=== PATIENT | male | born 1945 | race Caucasian/White ===

== ENCOUNTER 2024-01-19 12:56 | Emergency (ER) | payer MEDICARE ==
--- NOTE | 2024-01-19 13:13 | ED ---
General Adult HPI - General Chief complaint: Weakness Stated complaint: Weakness Time Seen by Provider: 01/19/24 13:00 Source: patient, EMS, RN notes reviewed, old records reviewed Mode of arrival: EMS Limitations: no limitations - History of Present Illness Initial comments: This is an 78-year-old male who presents to the emergency department complaining that he was too weak to get up and get into the shower. According to the report by EMS patient was weak and the report was that he was a little altered however he is alert and oriented x 3 currently. Patient states he has had 5 stents but has been about 15 years since he had a stent. Patient denies any chest pain difficulty breathing shortness of breath. Patient has any fever chills or cough or patient has abdominal pain patient has nausea vomiting diarrhea. Patient denies any recent trauma or injury. Patient states currently has no complaints but he is states he might be weak but he cannot tell close is not trying to stand - Related Data Home Medications Medication Instructions Recorded Confirmed Aspirin 325 mg PO DAILY 01/19/24 01/19/24 Chlorhexidine Gluconate [Peridex] 15 ml PO BID 01/19/24 01/19/24 Cyanocobalamin [Vitamin B-12 1,000 mcg SQ QMONTHLY 01/19/24 01/19/24 Injection] Divalproex ER [Depakote ER] 250 mg PO DAILY 01/19/24 01/19/24 Simvastatin 40 mg PO HS 01/19/24 01/19/24 amLODIPine [Norvasc] 5 mg PO BID 01/19/24 01/19/24 busPIRone HCL 15 mg PO BID 01/19/24 01/19/24 Allergies Allergy/AdvReac Type Severity Reaction Status Date / Time No Known Allergies Allergy Verified 01/19/24 17:02 Review of Systems ROS Statement: Those systems with pertinent positive or pertinent negative responses have been documented in the HPI. ROS Other: All systems not noted in ROS Statement are negative. Past Medical History Past Medical History: Dementia, Hyperlipidemia, Hypertension History of Any Multi-Drug Resistant Organisms: None Reported Past Surgical History: No Surgical Hx Reported Past Psychological History: No Psychological Hx Reported Smoking Status: Former smoker Past Alcohol Use History: None Reported Past Drug Use History: None Reported General Exam - General Exam Comments Initial Comments: GENERAL: Patient is well-developed and well-nourished. Patient is nontoxic and well- hydrated and is in no acute distress. ENT: Neck is soft and supple. No significant lymphadenopathy is noted. Oropharynx is clear. Moist mucous membranes. Neck has full range of motion without eliciting any pain. EYES: The sclera were anicteric and conjunctiva were pink and moist. Extraocular movements were intact and pupils were equal round and reactive to light. Eyelids were unremarkable. PULMONARY: Unlabored respirations. Good breath sounds bilaterally. No audible rales rhonchi or wheezing was noted. CARDIOVASCULAR: There is a regular rate and rhythm without any murmurs gallops or rubs. ABDOMEN: Soft and nontender with normal bowel sounds. SKIN: Skin is clear with no lesions or rashes and otherwise unremarkable. NEUROLOGIC: Patient is alert and oriented x3. Cranial nerves II through XII are grossly intact. Motor and sensory are also intact. Normal speech, volume and content. Symmetrical smile. MUSCULOSKELETAL: Normal extremities with adequate strength and full range of motion. LYMPHATICS: No significant lymphadenopathy is noted PSYCHIATRIC: Normal psychiatric evaluation. Limitations: no limitations Course Vital Signs 01/19/24 01/19/24 12:58 14:40 Temperature 96.8 F L 97.2 F L Pulse Rate 65 61 Respiratory 16 16 Rate Blood Pressure 108/58 133/77 O2 Sat by Pulse 95 Oximetry Medical Decision Making - Medical Decision Making EKG is interpreted by myself read EKG shows sinus rhythm at 60 bpm [place] interval is 182 QRS is 97 QT interval is 421 QTc is 421. Patient's EKG shows no ST segment ovation or depression. Was pt. sent in by a medical professional or institution (, PA, PROGRAM FACILITATOR, urgent care, hospital, or fdc...) When possible be specific @ -No Did you speak to anyone other than the patient for history (EMS, parent, family, police, friend...)? What history was obtained from this source @ -EMS gave us all of the history Did you review nursing and triage notes (agree or disagree)? Why? @ -I reviewed and agree with nursing and triage notes Were old charts reviewed (outside hosp., previous admission, EMS record, old EKG, old radiological studies, urgent care reports/EKG's, fdc records)? Report findings @ -No old charts were reviewed Differential Diagnosis (chest pain, altered mental status, abdominal pain women, abdominal pain men, vaginal bleeding, weakness, fever, dyspnea, syncope, headache, dizziness, GI bleed, back pain, seizure, CVA, palpatations, mental health, musculoskeletal)? @ -Differential Weakness: Hypoglycemia, shock, sepsis, hyponatremia, anemia, infection, [place], ETOH, adverse medicine reaction, overdose, stroke, this is not meant to be an all-inclusive list. EKG interpreted by me (3pts min.). @ -As above X-rays interpreted by me (1pt min.). @ -None done CT interpreted by me (1pt min.). @ -None done U/S interpreted by me (1pt. min.). @ -None done What testing was considered but not performed or refused? (CT, X-rays, U/S, labs)? Why? @ -None What meds were considered but not given or refused? Why? @ -None Did you discuss the management of the patient with other professionals (professionals i.e. , PA, PROGRAM FACILITATOR, lab, RT, psych nurse, social media executive, aquatic physiotherapist, teacher, fire control officer, transplant case manager)? Give summary @ -No Was smoking cessation discussed for >3mins.? @ -No Was critical care preformed (if so, how long)? @ -No Were there social determinants of health that impacted care today? How? (Homelessness, low income, unemployed, alcoholism, drug addiction, transportation, low edu. Level, literacy, decrease access to med. care, correction, rehab)? @ -No Was there de-escalation of care discussed even if they declined (Discuss DNR or withdrawal of care, Hospice)? DNR status @ -No What co-morbidities impacted this encounter? (DM, HTN, Smoking, COPD, CAD, Cancer, CVA, ARF, Chemo, Hep., AIDS, mental health diagnosis, sleep apnea, morbid obesity)? @ -None Was patient admitted / discharged? Hospital course, mention meds given and route, prescriptions, significant lab abnormalities, going to OR and other pertinent info. @ -Patient's lab work came back within normal range. Patient had no complaints after his lab work came back. I got the patient up and ambulated him on 3 different occasions and his pulse ox stayed above 95% and he had no complaints after ambulating. Patient was stable with a walker Undiagnosed new problem with uncertain prognosis? @ -No Drug Therapy requiring intensive monitoring for toxicity (Heparin, Nitro, Insulin, Cardizem)? @ -No Were any procedures done? @ -No Diagnosis/symptom? @ -Weakness Acute, or Chronic, or Acute on Chronic? @ -Acute Uncomplicated (without systemic symptoms) or Complicated (systemic symptoms)? @ -Complicated Side effects of treatment? @ -No Exacerbation, Progression, or Severe Exacerbation? @ -No Poses a threat to life or bodily function? How? (Chest pain, [place], [place], pneumonia, PE, COPD, DKA, ARF, appy, cholecystitis, CVA, Diverticulitis, Homicidal, Brina cidal, threat to staff... and all critical care pts) @ -No - Lab Data Result diagrams: 01/19/24 15:20 01/19/24 13:22 Lab Results 01/19/24 01/19/24 01/19/24 Range/Units 13:22 13:22 13:22 WBC (3.8-10.6) k/uL RBC (4.30-5.90) m/uL Hgb (13.0-17.5) gm/dL Hct (39.0-53.0) % MCV (80.0-100.0) fL MCH (25.0-35.0) pg MCHC (31.0-37.0) g/dL RDW (11.5-15.5) % Plt Count (150-450) k/uL MPV Neutrophils % % Lymphocytes % % Monocytes % % Eosinophils % % Basophils % % Neutrophils # (1.3-7.7) k/uL Lymphocytes # (1.0-4.8) k/uL Monocytes # (0-1.0) k/uL Eosinophils # (0-0.7) k/uL Basophils # (0-0.2) k/uL PT (10.0-12.5) sec INR (<1.2) APTT (22.0-30.0) sec Sodium 139 (137-145) mmol/L Potassium 4.4 (3.5-5.1) mmol/L Chloride 108 H (98-107) mmol/L Carbon Dioxide 23 (22-30) mmol/L Anion Gap 8 mmol/L BUN 23 H (9-20) mg/dL Creatinine 1.15 (0.66-1.25) mg/dL Est GFR (CKD-EPI)AfAm 70 (>60 ml/min/1.73 sqM) Est GFR (CKD-EPI)NonAf 60 (>60 ml/min/1.73 sqM) Glucose 159 H (74-99) mg/dL Lactic Ac Sepsis Rflx Plasma Lactic Acid Addy 2.2 H* (0.7-2.0) mmol/L Calcium 8.6 (8.4-10.2) mg/dL Magnesium 2.0 (1.6-2.3) mg/dL Total Bilirubin 0.7 (0.2-1.3) mg/dL AST 21 (17-59) U/L ALT 18 (4-49) U/L Alkaline Phosphatase 74 (38-126) U/L Troponin I (0.000-0.034) ng/mL Total Protein 6.4 (6.3-8.2) g/dL Albumin 3.6 (3.5-5.0) g/dL Urine Color Yellow Urine Appearance Clear (Clear) Urine pH 6.5 (5.0-8.0) Ur Specific [place] 1.017 (1.001-1.035) Urine Protein 1+ H (Negative) Urine Glucose (UA) Negative (Negative) Urine Ketones Negative (Negative) Urine Blood Negative (Negative) Urine Nitrite Negative (Negative) Urine Bilirubin Negative (Negative) Urine Urobilinogen <2.0 (<2.0) mg/dL Ur Leukocyte Esterase Negative (Negative) Urine RBC 1 (0-5) /hpf Urine WBC 1 (0-5) /hpf Urine Mucus Rare H (None) /hpf 01/19/24 01/19/24 01/19/24 Range/Units 13:22 13:57 15:20 WBC 7.0 (3.8-10.6) k/uL RBC 3.72 L (4.30-5.90) m/uL Hgb 11.7 L (13.0-17.5) gm/dL Hct 35.6 L (39.0-53.0) % MCV 95.9 (80.0-100.0) fL MCH 31.4 (25.0-35.0) pg MCHC 32.8 (31.0-37.0) g/dL RDW 11.8 (11.5-15.5) % Plt Count 196 (150-450) k/uL MPV 8.5 Neutrophils % 66 % Lymphocytes % 23 % Monocytes % 6 % Eosinophils % 2 % Basophils % 1 % Neutrophils # 4.6 (1.3-7.7) k/uL Lymphocytes # 1.6 (1.0-4.8) k/uL Monocytes # 0.4 (0-1.0) k/uL Eosinophils # 0.1 (0-0.7) k/uL Basophils # 0.0 (0-0.2) k/uL PT (10.0-12.5) sec INR (<1.2) APTT (22.0-30.0) sec Sodium (137-145) mmol/L Potassium (3.5-5.1) mmol/L Chloride (98-107) mmol/L Carbon Dioxide (22-30) mmol/L Anion Gap mmol/L BUN (9-20) mg/dL Creatinine (0.66-1.25) mg/dL Est GFR (CKD-EPI)AfAm (>60 ml/min/1.73 sqM) Est GFR (CKD-EPI)NonAf (>60 ml/min/1.73 sqM) Glucose (74-99) mg/dL Lactic Ac Sepsis Rflx Y Plasma Lactic Acid Addy (0.7-2.0) mmol/L Calcium (8.4-10.2) mg/dL Magnesium (1.6-2.3) mg/dL Total Bilirubin (0.2-1.3) mg/dL AST (17-59) U/L ALT (4-49) U/L Alkaline Phosphatase (38-126) U/L Troponin I <0.012 (0.000-0.034) ng/mL Total Protein (6.3-8.2) g/dL Albumin (3.5-5.0) g/dL Urine Color Urine Appearance (Clear) Urine pH (5.0-8.0) Ur Specific [place] (1.001-1.035) Urine Protein (Negative) Urine Glucose (UA) (Negative) Urine Ketones (Negative) Urine Blood (Negative) Urine Nitrite (Negative) Urine Bilirubin (Negative) Urine Urobilinogen (<2.0) mg/dL Ur Leukocyte Esterase (Negative) Urine RBC (0-5) /hpf Urine WBC (0-5) /hpf Urine Mucus (None) /hpf 01/19/24 01/19/24 Range/Units 15:20 16:27 WBC (3.8-10.6) k/uL RBC (4.30-5.90) m/uL Hgb (13.0-17.5) gm/dL Hct (39.0-53.0) % MCV (80.0-100.0) fL MCH (25.0-35.0) pg MCHC (31.0-37.0) g/dL RDW (11.5-15.5) % Plt Count (150-450) k/uL MPV Neutrophils % % Lymphocytes % % Monocytes % % Eosinophils % % Basophils % % Neutrophils # (1.3-7.7) k/uL Lymphocytes # (1.0-4.8) k/uL Monocytes # (0-1.0) k/uL Eosinophils # (0-0.7) k/uL Basophils # (0-0.2) k/uL PT 10.2 (10.0-12.5) sec INR 0.9 (<1.2) APTT 21.9 L (22.0-30.0) sec Sodium (137-145) mmol/L Potassium (3.5-5.1) mmol/L Chloride (98-107) mmol/L Carbon Dioxide (22-30) mmol/L Anion Gap mmol/L BUN (9-20) mg/dL Creatinine (0.66-1.25) mg/dL Est GFR (CKD-EPI)AfAm (>60 ml/min/1.73 sqM) Est GFR (CKD-EPI)NonAf (>60 ml/min/1.73 sqM) Glucose (74-99) mg/dL Lactic Ac Sepsis Rflx Plasma Lactic Acid Addy 1.3 (0.7-2.0) mmol/L Calcium (8.4-10.2) mg/dL Magnesium (1.6-2.3) mg/dL Total Bilirubin (0.2-1.3) mg/dL AST (17-59) U/L ALT (4-49) U/L Alkaline Phosphatase (38-126) U/L Troponin I (0.000-0.034) ng/mL Total Protein (6.3-8.2) g/dL Albumin (3.5-5.0) g/dL Urine Color Urine Appearance (Clear) Urine pH (5.0-8.0) Ur Specific [place] (1.001-1.035) Urine Protein (Negative) Urine Glucose (UA) (Negative) Urine Ketones (Negative) Urine Blood (Negative) Urine Nitrite (Negative) Urine Bilirubin (Negative) Urine Urobilinogen (<2.0) mg/dL Ur Leukocyte Esterase (Negative) Urine RBC (0-5) /hpf Urine WBC (0-5) /hpf Urine Mucus (None) /hpf Disposition Clinical Impression: Weakness Disposition: HOME SELF-CARE Condition: Good Instructions (If sedation given, give patient instructions): Weakness (ED) Is patient prescribed a controlled substance at d/c from ED?: No Referrals: None,Stated [REFERRING] - 1-2 days Time of Disposition: 18:36
[2024-01-19 13:43] LABS: ALT 18 U/L (4-49); AST 21 U/L (17-59); African American GFR (CKD) 70 (>60 ml/min/1.73 sqM); Albumin 3.6 g/dL (3.5-5.0); Alkaline Phosphatase 74 U/L (38-126); Anion Gap 8 mmol/L; Blood Urea Nitrogen 23 mg/dL (9-20); Calcium 8.6 mg/dL (8.4-10.2); Carbon Dioxide 23 mmol/L (22-30); Chloride 108 mmol/L (98-107); Glucose 159 mg/dL (74-99); Non-African American GFR(CKD) 60 (>60 ml/min/1.73 sqM); Potassium 4.4 mmol/L (3.5-5.1); Sodium 139 mmol/L (137-145); Total Bilirubin 0.7 mg/dL (0.2-1.3); Total Protein 6.4 g/dL (6.3-8.2)
--- NOTE | 2024-01-19 13:49 | XR ---
EXAMINATION TYPE: XR chest 2V DATE OF EXAM: 01/19/2024 COMPARISON: NONE HISTORY: Shortness of breath TECHNIQUE: Frontal and lateral views of the chest are obtained. FINDINGS: Scattered senescent parenchymal changes noted. Hyperinflation compatible with COPD. No evidence for infiltrate. No evidence for atelectasis. Heart size is stable. Mediastinal structures are stable and grossly unremarkable. No evidence for hilar prominence. Degenerative changes dorsal spine. IMPRESSION: 1. No evidence for acute pulmonary disease.
[2024-01-19 14:05] LABS: Appearance,Urine Clear (Clear); Bilirubin,Urine Negative (Negative); Blood,Urine Negative (Negative); Color,Urine Yellow; Glucose,Urine (UA) Negative (Negative); Ketones,Urine Negative (Negative); Leukocyte Esterase,Urine Negative (Negative); Mucus,Urine Rare /hpf; Nitrite,Urine Negative (Negative); PH, Urine 6.5 (5.0-8.0); Protein,Urine 1+ (Negative); RBC,Urine 1 /hpf (0-5); Specific Gravity,Urine 1.017 (1.001-1.035); Urobilinogen,Urine <2.0 mg/dL (<2.0); WBC,Urine 1 /hpf (0-5)
[2024-01-19 15:38] LABS: Basophils % (A) 1 %; Eosinophils # (A) 0.1 k/uL (0-0.7); Eosinophils % (A) 2 %; HCT 35.6 % (39.0-53.0); HGB 11.7 gm/dL (13.0-17.5); Lymphocytes # (A) 1.6 k/uL (1.0-4.8); Lymphocytes % (A) 23 %; MCH 31.4 pg (25.0-35.0); MCHC 32.8 g/dL (31.0-37.0); MCV 95.9 fL (80.0-100.0); Mean Platelet Volume 8.5; Monocytes # (A) 0.4 k/uL (0-1.0); Monocytes % (A) 6 %; Neutrophils # (A) 4.6 k/uL (1.3-7.7); Neutrophils % (A) 66 %; Platelet Count 196 k/uL (150-450); RBC 3.72 m/uL (4.30-5.90); RDW 11.8 % (11.5-15.5)
[2024-01-19 15:55] LABS: INR 0.9 (<1.2); Partial Thromboplastin Time 21.9 sec (22.0-30.0); Prothrombin Time 10.2 sec (10.0-12.5)
[2024-01-19 19:01] VITALS: TEMP 97.3
[2024-01-19 19:59] VITALS: BP 133/70; PULSE 71; RESP 16
== END 2024-01-19 20:13 | disposition home or self-care (01) ==
LOC: EC 12:56 → EEVIPCON 12:56 → EC 20:13
DX: R53.1 Weakness (principal); I10 Essential (primary) hypertension; E78.5 Hyperlipidemia, unspecified; Z87.891 Personal history of nicotine dependence; Z79.899 Other long term (current) drug therapy; Z79.82 Long term (current) use of aspirin
CPT/HCPCS: 36415; 71046; 80053; 81001; 83605; 83735; 84484; 85025; 85610; 85730; 93005; 99285

== ENCOUNTER 2024-04-13 13:31 | Inpatient (IN) | payer MEDICARE ==
[2024-04-13] MEDS: SODIUM CHLORIDE 0.9% 1,000 ML IV STA ×2 (14:10→15:52)
[2024-04-13] MEDS: KETOROLAC 15 MG/ML 1 ML VIAL IVP STA (14:12)
[2024-04-13] MEDS: ACETAMINOPHEN TAB 500 MG TAB PO STA (14:13)
--- NOTE | 2024-04-13 14:15 | ED ---
Weakness HPI - General Chief complaint: Weakness Stated complaint: Weakness Time Seen by Provider: 04/13/24 13:38 Source: patient, EMS, RN notes reviewed Mode of arrival: EMS Limitations: no limitations - History of Present Illness Initial comments: This is an 78-year-old male who presents to the emergency department for generalized weakness. Patient currently lives at [facility], and states that when he woke up this morning he was feeling very weak. Staff members noticed him to seem more altered than usual. Patient has dementia and is unable to give much history. Currently denies any chest pain, shortness of breath, nausea, vomiting, or abdominal pain. States that he feels generally unwell and weak. Staff members did note foul-smelling urine. MD Complaint: generalized weakness - Related Data Home Medications Medication Instructions Recorded Confirmed Aspirin 325 mg PO DAILY 01/19/24 04/13/24 Chlorhexidine Gluconate [Peridex] 15 ml PO BID 01/19/24 04/13/24 Cyanocobalamin [Vitamin B-12 1,000 mcg SQ QMONTHLY 01/19/24 04/13/24 Injection] Divalproex ER [Depakote ER] 250 mg PO HS 01/19/24 04/13/24 Simvastatin 40 mg PO HS 01/19/24 04/13/24 amLODIPine [Norvasc] 5 mg PO HS 01/19/24 04/13/24 busPIRone HCL 15 mg PO BID 01/19/24 04/13/24 Losartan Potassium 100 mg PO DAILY 04/13/24 04/13/24 traZODone HCL [Desyrel] 25 mg PO HS 04/13/24 04/13/24 Allergies Allergy/AdvReac Type Severity Reaction Status Date / Time No Known Allergies Allergy Verified 04/13/24 14:37 Review of Systems ROS Statement: Those systems with pertinent positive or pertinent negative responses have been documented in the HPI. ROS Other: All systems not noted in ROS Statement are negative. Past Medical History Past Medical History: Dementia, Hyperlipidemia, Hypertension History of Any Multi-Drug Resistant Organisms: None Reported Past Surgical History: No Surgical Hx Reported Past Psychological History: No Psychological Hx Reported Smoking Status: Former smoker Past Alcohol Use History: None Reported Past Drug Use History: None Reported General Exam Limitations: no limitations General appearance: alert, in no apparent distress Head exam: Present: atraumatic, normocephalic, normal inspection Respiratory exam: Present: normal lung sounds bilaterally. Absent: respiratory distress, wheezes, rales, rhonchi, stridor Cardiovascular Exam: Present: regular rate, normal rhythm, normal heart sounds. Absent: systolic murmur, diastolic murmur, rubs, gallop, clicks GI/Abdominal exam: Present: soft, normal bowel sounds. Absent: distended, tenderness, guarding, rebound, rigid Neurological exam: Present: alert, oriented X3, CN II-XII intact Psychiatric exam: Present: normal affect, normal mood Skin exam: Present: warm, dry, intact, normal color. Absent: rash Course Vital Signs 04/13/24 04/13/24 04/13/24 13:38 13:54 13:59 Temperature 102.1 F H 102.3 F H 102.3 F H Pulse Rate 95 71 71 Respiratory 18 32 H 32 H Rate Blood Pressure 143/80 143/80 O2 Sat by Pulse 94 L 95 96 Oximetry 04/13/24 04/13/24 15:15 16:48 Temperature 98.1 F Pulse Rate 65 62 Respiratory 18 20 Rate Blood Pressure 125/57 116/59 O2 Sat by Pulse 95 97 Oximetry Medical Decision Making - Medical Decision Making This is an 78 year old male who presents to the emergency department for generalized weakness. Was pt. sent in by a medical professional or institution? @ -Nursing facility Did you speak to anyone other than the patient for history? @ -Nursing facility provided the majority of the information. Did you review nursing and triage notes? @ -Yes, and I agree, it is accurate with regards to the patient's symptoms. Were old charts reviewed? @ -No Differential Diagnosis? @ -Differential Weakness: Hypoglycemia, shock, sepsis, hyponatremia, anemia, infection, OH, ETOH, adverse medicine reaction, overdose, stroke, this is not meant to be an all-inclusive list. EKG interpreted by me (3pts min.)? @ -EKG interpreted by me demonstrating the following: Sinus rhythm. Ventricular rate 72 bpm, CO interval 176 ms, QRS duration 97 ms, QTc 383 ms. X-rays interpreted by me (1pt min.)? @ -Chest x-ray obtained, my interpretation identifies no localized consolidations or infiltrates. CT interpreted by me (1pt min.)? @ -HTN, HLD U/S interpreted by me (1pt. min.)? @ -Not obtained What testing was considered but not performed? (CT, X-rays, U/S, labs)? Why? @ -None What meds were considered but not given? Why? @ -None Did you discuss the management of the patient with other professionals? @ -Yes, Dr. Balderrama, who accepts the patient for admission. Did you reconcile home meds? @ -Yes Was smoking cessation discussed for >3mins.? @ -No Was critical care preformed (if so, how long)? @ -No Were there social determinants of health that impacted care today? How? (Homelessness, low income, unemployed, alcoholism, drug addiction, transportation, low edu. Level, literacy, decrease access to med. care, senior living, rehab)? @ -No Was there de-escalation of care discussed even if they declined? (Discuss DNR or withdrawal of care, Hospice)? @ -No What co-morbidities impacted this encounter? (DM, HTN, Smoking, COPD, CAD, Cancer, CVA, Hep., AIDS, mental health diagnosis, sleep apnea, morbid obesity)? @ -Dementia, HLD, HTN Was patient admitted / discharged? @ -Admitted. Lab work demonstrates leukocytosis with a white blood cell count of 16,000. Patient also febrile on arrival with temperature 102.1 F. Toradol and Tylenol administered for the fever, which successfully reduced the temperature. COVID, influenza, and RSV testing negative. Urinalysis suggestive of infection. Urine sent for culture. Chest x-ray reveals possible mild COPD with pulmonary vascular congestion. Based on the leukocytosis with elevated temperature and identified source of infection, patient meets sepsis criteria. Patient met sepsis criteria at 1500 when I saw the UA results. Blood cultures were obtained and he was given 2g of Ceftriaxone. 2.5L of IV fluids administered based on the 30-40 mL/kg requirement and maintenance fluids were initiated. Patient admitted to medicine for UTI and sepsis. Undiagnosed new problem with uncertain prognosis? @ -None Drug Therapy requiring intensive monitoring for toxicity (Heparin, Nitro, Insulin, Cardizem)? @ -None Were any procedures done? @ -None Diagnosis/symptom? @ -UTI, sepsis Acute, or Chronic, or Acute on Chronic? @ -Acute Uncomplicated (without systemic symptoms) or Complicated (systemic symptoms)? @ -Complicated Side effects of treatment? @ -None Exacerbation, Progression, or Severe Exacerbation] @ -Not applicable Poses a threat to life or bodily function? @ -Yes, can lead to organ failure and . This case was discussed in detail with the attending ED physician, Dr. Argueta. Presentation, findings, and treatment plan discussed in detail as well. - Lab Data Result diagrams: 04/13/24 14:07 04/13/24 14:07 Lab Results 04/13/24 04/13/24 04/13/24 Range/Units 14:07 14:07 14:07 WBC 16.0 H (3.8-10.6) k/uL RBC 4.16 L (4.30-5.90) m/uL Hgb 12.7 L (13.0-17.5) gm/dL Hct 40.4 (39.0-53.0) % MCV 97.0 (80.0-100.0) fL MCH 30.6 (25.0-35.0) pg MCHC 31.5 (31.0-37.0) g/dL RDW 12.4 (11.5-15.5) % Plt Count 181 (150-450) k/uL MPV 8.6 Neutrophils % 89 % Lymphocytes % 5 % Monocytes % 5 % Eosinophils % 0 % Basophils % 0 % Neutrophils # 14.2 H (1.3-7.7) k/uL Lymphocytes # 0.8 L (1.0-4.8) k/uL Monocytes # 0.8 (0-1.0) k/uL Eosinophils # 0.1 (0-0.7) k/uL Basophils # 0.1 (0-0.2) k/uL PT 10.8 (10.0-12.5) sec INR 1.0 (<1.2) APTT 24.0 (22.0-30.0) sec Sodium (137-145) mmol/L Potassium (3.5-5.1) mmol/L Chloride (98-107) mmol/L Carbon Dioxide (22-30) mmol/L Anion Gap mmol/L BUN (9-20) mg/dL Creatinine (0.66-1.25) mg/dL Est GFR (CKD-EPI)AfAm (>60 ml/min/1.73 sqM) Est GFR (CKD-EPI)NonAf (>60 ml/min/1.73 sqM) Glucose (74-99) mg/dL Plasma Lactic Acid Addy (0.7-2.0) mmol/L Calcium (8.4-10.2) mg/dL Phosphorus (2.5-4.5) mg/dL Magnesium (1.6-2.3) mg/dL Total Bilirubin (0.2-1.3) mg/dL AST (17-59) U/L ALT (4-49) U/L Alkaline Phosphatase (38-126) U/L Troponin I (0.000-0.034) ng/mL NT-Pro-B Natriuret Pep pg/mL Total Protein (6.3-8.2) g/dL Albumin (3.5-5.0) g/dL Urine Color Yellow Urine Appearance Cloudy (Clear) Urine pH 6.0 (5.0-8.0) Ur Specific Straughn 1.022 (1.001-1.035) Urine Protein 3+ H (Negative) Urine Glucose (UA) Negative (Negative) Urine Ketones Negative (Negative) Urine Blood Moderate H (Negative) Urine Nitrite Negative (Negative) Urine Bilirubin Negative (Negative) Urine Urobilinogen <2.0 (<2.0) mg/dL Ur Leukocyte Esterase Moderate H (Negative) Urine RBC 5 (0-5) /hpf Urine WBC 63 H (0-5) /hpf Urine Bacteria Many H (None) /hpf Hyaline Casts 1 (0-2) /lpf Urine Mucus Few H (None) /hpf Influenza Type A (PCR) (Not Detectd) Influenza Type B (PCR) (Not Detectd) RSV (PCR) (Not Detectd) SARS-CoV-2 (PCR) (Not Detectd) 04/13/24 04/13/24 04/13/24 Range/Units 14:07 14:07 14:07 WBC (3.8-10.6) k/uL RBC (4.30-5.90) m/uL Hgb (13.0-17.5) gm/dL Hct (39.0-53.0) % MCV (80.0-100.0) fL MCH (25.0-35.0) pg MCHC (31.0-37.0) g/dL RDW (11.5-15.5) % Plt Count (150-450) k/uL MPV Neutrophils % % Lymphocytes % % Monocytes % % Eosinophils % % Basophils % % Neutrophils # (1.3-7.7) k/uL Lymphocytes # (1.0-4.8) k/uL Monocytes # (0-1.0) k/uL Eosinophils # (0-0.7) k/uL Basophils # (0-0.2) k/uL PT (10.0-12.5) sec INR (<1.2) APTT (22.0-30.0) sec Sodium 142 (137-145) mmol/L Potassium 3.9 (3.5-5.1) mmol/L Chloride 108 H (98-107) mmol/L Carbon Dioxide 28 (22-30) mmol/L Anion Gap 6 mmol/L BUN 23 H (9-20) mg/dL Creatinine 1.20 (0.66-1.25) mg/dL Est GFR (CKD-EPI)AfAm 66 (>60 ml/min/1.73 sqM) Est GFR (CKD-EPI)NonAf 57 (>60 ml/min/1.73 sqM) Glucose 146 H (74-99) mg/dL Plasma Lactic Acid Addy 1.7 (0.7-2.0) mmol/L Calcium 9.2 (8.4-10.2) mg/dL Phosphorus 2.6 (2.5-4.5) mg/dL Magnesium 2.0 (1.6-2.3) mg/dL Total Bilirubin 1.3 (0.2-1.3) mg/dL AST 66 H (17-59) U/L ALT 22 (4-49) U/L Alkaline Phosphatase 78 (38-126) U/L Troponin I 0.033 (0.000-0.034) ng/mL NT-Pro-B Natriuret Pep 728 pg/mL Total Protein 7.3 (6.3-8.2) g/dL Albumin 4.2 (3.5-5.0) g/dL Urine Color Urine Appearance (Clear) Urine pH (5.0-8.0) Ur Specific Straughn (1.001-1.035) Urine Protein (Negative) Urine Glucose (UA) (Negative) Urine Ketones (Negative) Urine Blood (Negative) Urine Nitrite (Negative) Urine Bilirubin (Negative) Urine Urobilinogen (<2.0) mg/dL Ur Leukocyte Esterase (Negative) Urine RBC (0-5) /hpf Urine WBC (0-5) /hpf Urine Bacteria (None) /hpf Hyaline Casts (0-2) /lpf Urine Mucus (None) /hpf Influenza Type A (PCR) (Not Detectd) Influenza Type B (PCR) (Not Detectd) RSV (PCR) (Not Detectd) SARS-CoV-2 (PCR) (Not Detectd) 04/13/24 Range/Units 14:07 WBC (3.8-10.6) k/uL RBC (4.30-5.90) m/uL Hgb (13.0-17.5) gm/dL Hct (39.0-53.0) % MCV (80.0-100.0) fL MCH (25.0-35.0) pg MCHC (31.0-37.0) g/dL RDW (11.5-15.5) % Plt Count (150-450) k/uL MPV Neutrophils % % Lymphocytes % % Monocytes % % Eosinophils % % Basophils % % Neutrophils # (1.3-7.7) k/uL Lymphocytes # (1.0-4.8) k/uL Monocytes # (0-1.0) k/uL Eosinophils # (0-0.7) k/uL Basophils # (0-0.2) k/uL PT (10.0-12.5) sec INR (<1.2) APTT (22.0-30.0) sec Sodium (137-145) mmol/L Potassium (3.5-5.1) mmol/L Chloride (98-107) mmol/L Carbon Dioxide (22-30) mmol/L Anion Gap mmol/L BUN (9-20) mg/dL Creatinine (0.66-1.25) mg/dL Est GFR (CKD-EPI)AfAm (>60 ml/min/1.73 sqM) Est GFR (CKD-EPI)NonAf (>60 ml/min/1.73 sqM) Glucose (74-99) mg/dL Plasma Lactic Acid Addy (0.7-2.0) mmol/L Calcium (8.4-10.2) mg/dL Phosphorus (2.5-4.5) mg/dL Magnesium (1.6-2.3) mg/dL Total Bilirubin (0.2-1.3) mg/dL AST (17-59) U/L ALT (4-49) U/L Alkaline Phosphatase (38-126) U/L Troponin I (0.000-0.034) ng/mL NT-Pro-B Natriuret Pep pg/mL Total Protein (6.3-8.2) g/dL Albumin (3.5-5.0) g/dL Urine Color Urine Appearance (Clear) Urine pH (5.0-8.0) Ur Specific Straughn (1.001-1.035) Urine Protein (Negative) Urine Glucose (UA) (Negative) Urine Ketones (Negative) Urine Blood (Negative) Urine Nitrite (Negative) Urine Bilirubin (Negative) Urine Urobilinogen (<2.0) mg/dL Ur Leukocyte Esterase (Negative) Urine RBC (0-5) /hpf Urine WBC (0-5) /hpf Urine Bacteria (None) /hpf Hyaline Casts (0-2) /lpf Urine Mucus (None) /hpf Influenza Type A (PCR) Not Detected (Not Detectd) Influenza Type B (PCR) Not Detected (Not Detectd) RSV (PCR) Not Detected (Not Detectd) SARS-CoV-2 (PCR) Not Detected (Not Detectd) - Radiology Data Radiology results: report reviewed, image reviewed Disposition Clinical Impression: UTI (urinary tract infection), Sepsis Disposition: ADMITTED IP TO THIS [facility] Referrals: None,Stated [REFERRING] - 1-2 days
[2024-04-13 14:40] LABS: Basophils # (A) 0.1 k/uL (0-0.2); Basophils % (A) 0 %; Eosinophils # (A) 0.1 k/uL (0-0.7); Eosinophils % (A) 0 %; HCT 40.4 % (39.0-53.0); HGB 12.7 gm/dL (13.0-17.5); Lymphocytes # (A) 0.8 k/uL (1.0-4.8); Lymphocytes % (A) 5 %; MCH 30.6 pg (25.0-35.0); MCHC 31.5 g/dL (31.0-37.0); Mean Platelet Volume 8.6; Monocytes # (A) 0.8 k/uL (0-1.0); Monocytes % (A) 5 %; Neutrophils # (A) 14.2 k/uL (1.3-7.7); Neutrophils % (A) 89 %; Platelet Count 181 k/uL (150-450); RBC 4.16 m/uL (4.30-5.90); RDW 12.4 % (11.5-15.5)
[2024-04-13 14:53] LABS: ALT 22 U/L (4-49); AST 66 U/L (17-59); African American GFR (CKD) 66 (>60 ml/min/1.73 sqM); Albumin 4.2 g/dL (3.5-5.0); Alkaline Phosphatase 78 U/L (38-126); Anion Gap 6 mmol/L; Blood Urea Nitrogen 23 mg/dL (9-20); Calcium 9.2 mg/dL (8.4-10.2); Carbon Dioxide 28 mmol/L (22-30); Chloride 108 mmol/L (98-107); Glucose 146 mg/dL (74-99); Non-African American GFR(CKD) 57 (>60 ml/min/1.73 sqM); Phosphorus 2.6 mg/dL (2.5-4.5); Potassium 3.9 mmol/L (3.5-5.1); Sodium 142 mmol/L (137-145); Total Bilirubin 1.3 mg/dL (0.2-1.3); Total Protein 7.3 g/dL (6.3-8.2)
[2024-04-13 14:55] LABS: Prothrombin Time 10.8 sec (10.0-12.5)
[2024-04-13 15:00] LABS: NT-Pro-B-Type Natriuretic Pept 728 pg/mL
--- NOTE | 2024-04-13 15:00 | XR ---
EXAMINATION TYPE: XR chest 2V DATE OF EXAM: 04/13/2024 COMPARISON: 01/19/2024 HISTORY: 78-year-old male with weakness and bilateral lower extremity edema TECHNIQUE: AP and lateral views FINDINGS: Heart upper limits of normal in size. Mild hyperinflation. Mild interstitial/vascular prominence. No consolidation or pleural effusion. IMPRESSION: Possible COPD with mild pulmonary vascular congestion. Clinically correlate.
[2024-04-13 15:03] LABS: Appearance,Urine Cloudy (Clear); Bacteria,Urine Many /hpf; Bilirubin,Urine Negative (Negative); Blood,Urine Moderate (Negative); Color,Urine Yellow; Glucose,Urine (UA) Negative (Negative); Hyaline Casts,Urine 1 /lpf (0-2); Ketones,Urine Negative (Negative); Leukocyte Esterase,Urine Moderate (Negative); Mucus,Urine Few /hpf; Nitrite,Urine Negative (Negative); Protein,Urine 3+ (Negative); RBC,Urine 5 /hpf (0-5); Specific Gravity,Urine 1.022 (1.001-1.035); Urobilinogen,Urine <2.0 mg/dL (<2.0); WBC,Urine 63 /hpf (0-5)
[2024-04-13] MEDS: SODIUM CHLORIDE 0.9% 500 ML 500 ML IV STA (15:53)
[2024-04-13] MEDS ORDERED: HYDROcodone/APAP 5-325MG 1 EACH TAB PO PRN (17:09)
[2024-04-13] MEDS ORDERED: IBUPROFEN 400 MG TAB PO PRN (17:09)
[2024-04-13] MEDS ORDERED: KETOROLAC 15 MG/ML 1 ML VIAL IVP PRN (17:09)
[2024-04-13] MEDS ORDERED: NALOXONE 0.4 MG/ML 1 ML VIAL IV PRN (17:09)
[2024-04-13] MEDS ORDERED: ONDANSETRON 4 MG/2 ML VIAL IVP PRN (17:09)
[2024-04-13] MEDS ORDERED: MORPHINE SULFATE 4 MG/ML SYRINGE IV PRN (17:09)
[2024-04-13] MEDS: traZODone HCL 50 MG TAB PO SCH (22:02)
[2024-04-13] MEDS: ATORVASTATIN 20 MG TAB PO SCH (22:05)
[2024-04-13] MEDS: amLODIPine 5 MG TAB PO SCH (22:05)
[2024-04-13] MEDS: CHLORHEXIDINE GLUCONATE 15 ML CUP MUCOUS MEM SCH (22:05)
[2024-04-13] MEDS: busPIRone HCl 5 MG TAB PO SCH (22:05)
[2024-04-13] MEDS: DIVALPROEX ER 250 MG TAB.ER.24H PO SCH (22:06)
[2024-04-14] MEDS: SODIUM CHLORIDE 0.9% 1,000 ML IV STA (00:42)
[2024-04-14] MEDS: ACETAMINOPHEN TAB 325 MG TAB PO PRN (00:43)
[2024-04-14] MEDS: ASPIRIN 325 MG TAB PO SCH (08:57)
[2024-04-14] MEDS: LOSARTAN 50 MG TAB PO SCH (08:57)
[2024-04-14] MEDS: CYANOCOBALAMIN 1,000 MCG/ML 1 ML VIAL SQ SCH (10:43)
--- NOTE | 2024-04-14 16:13 | P.HPIM ---
History of Present Illness H&P Date: 04/13/24 Chief Complaint: Tired This is 78-year-old patient, follows with visiting physician Dr. Marcos. Chronic stable medical condition include dementia, hypertension, hyperlipidemia. Per the ER physician patient lives at [facility]. He presented feeling very weak. Staff member noticed him to be more altered than baseline. Has underlying dementia. Just feels generalized unwell and tired. Patient not a very good historian. As per the EMS run sheet patient was not able to use his walker which he is normally able to use. Focal weakness. His appetite is fair. Has some edema. He did say he felt a bit dizzy. Does use a walker. Patient's son is the guardian. Dago of fever in the ER. Staff had felt that patient's urine was strong appearing Review of systems: GEN.: Tired EYES: None HEENT: None NECK: None RESPIRATORY: None CARDIOVASCULAR: None GASTROINTESTINAL: None GENITOURINARY: None MUSCULOSKELETAL: Some joint pains LYMPHATICS: None HEMATOLOGICAL: None PSYCHIATRY: [Forgetful NEUROLOGICAL: Uses a walker Social history: Former smoker. Lives at [facility]. Does use a walker. Physical examination: VITAL SIGNS: [92.1, 95, 18, 143 x 80, 94% room air upon presentation GENERAL: BMI 25.1, in bed, tired. EYES: Pupils equal. Conjunctiva oanh l. HEENT: External appearance of nose and ears normal, oral cavity grossly normal. NECK: JVD not raised; masses not palpable. HEART: First and second heart sounds are normal; no edema. LUNGS: Respiratory rate normal; clear to auscultation. ABDOMEN: Soft, nontender, liver spleen not palpable, no masses palpable. PSYCH: Patient can only answer simple questions. l. MUSCULOSKELETAL:No Clubbing/cyanosis;muscles-grossly intact. OA NEUROLOGICAL: Cranial nerves grossly intact; no facial asymmetry, power and sensation grossly intact. LYMPHATICS: No lymph nodes palpable in the axilla and neck INVESTIGATIONS, reviewed in the clinical context: April 13 07/04/2024: White count 16 hemoglobin 12.7 platelets 181 sodium 142 potassium 3.9 creatinine 1.2 UA blood moderate, leukoesterase moderate, WBC 63, bacteria many Influenza type A, type B, RSV, COVID-19: Not detected EKG tracing personally reviewed by me-normal sinus rhythm. Nonspecific ST-T wave changes. Chest x-ray film personally reviewed by me-some hyperinflation. Assessment plan: -Acute UTI with cystitis causing sepsis IV ceftriaxone Urine culture pending -Acute metabolic encephalopathy/delirium from sepsis -Sepsis from acute UTI IV fluids antibiotics -Essential hypertension Amlodipine 5 mg nightly Losartan 100 mg a day -Depression BuSpar. Trazodone -Hyperlipidemia Simvastatin 40 mg nightly -Full code Past Medical History Past Medical History: Dementia, Hyperlipidemia, Hypertension History of Any Multi-Drug Resistant Organisms: None Reported Past Surgical History: No Surgical Hx Reported Past Anesthesia/Blood Transfusion Reactions: Unable to Obtain Past Psychological History: No Psychological Hx Reported Smoking Status: Former smoker Past Alcohol Use History: None Reported Past Drug Use History: None Reported Medications and Allergies Home Medications Medication Instructions Recorded Confirmed Type Aspirin 325 mg PO DAILY 01/19/24 04/13/24 History Chlorhexidine Gluconate [Peridex] 15 ml PO BID 01/19/24 04/13/24 History Cyanocobalamin [Vitamin B-12 1,000 mcg SQ QMONTHLY 01/19/24 04/13/24 History Injection] Divalproex ER [Depakote ER] 250 mg PO HS 01/19/24 04/13/24 History Simvastatin 40 mg PO HS 01/19/24 04/13/24 History amLODIPine [Norvasc] 5 mg PO HS 01/19/24 04/13/24 History busPIRone HCL 15 mg PO BID 01/19/24 04/13/24 History Losartan Potassium 100 mg PO DAILY 04/13/24 04/13/24 History traZODone HCL [Desyrel] 25 mg PO HS 04/13/24 04/13/24 History Allergies Allergy/AdvReac Type Severity Reaction Status Date / Time No Known Allergies Allergy Verified 04/13/24 14:37 Physical Exam Vitals: Vital Signs Temp Pulse Pulse Resp BP BP Pulse Ox 04/14/24 13:01 98.3 F 67 18 161/64 96 04/14/24 07:11 99.3 F 69 18 138/64 98 04/14/24 01:33 100.2 F H 76 16 135/55 93 L 04/13/24 21:02 100.4 F H 76 18 139/64 96 04/13/24 20:10 82 24 138/64 95 04/13/24 19:46 91 26 H 96 04/13/24 17:26 62 18 136/66 94 L 04/13/24 16:48 98.1 F 62 20 116/59 97 Intake and Output 04/14/24 04/14/24 04/14/24 06:59 14:59 22:59 Other: # Voids 2 Weight 81.647 kg Results CBC & Chem 7: 04/13/24 14:07 04/13/24 14:07 Thrombosis Risk Factor Assmnt - Choose All That Apply Any of the Below Risk Factors Present?: No Other Risk Factors: Yes Each Risk Factor Represents 3 Points: Age 75 years or older Other congenital or acquired thrombophilia - If yes, enter type in comment: No Thrombosis Risk Factor Assessment Total Risk Factor Score: 3 Thrombosis Risk Factor Assessment Level: Moderate Risk
[2024-04-14] MEDS: ENOXAPARIN 40 MG/0.4 ML SYRINGE SQ SCH (18:32)
[2024-04-14] MEDS: SODIUM CHLORIDE 0.9% 1,000 ML IV SCH (23:11)
[2024-04-15 07:49] LABS: Basophils # (A) 0.1 k/uL (0-0.2); Basophils % (A) 1 %; Eosinophils # (A) 0.1 k/uL (0-0.7); Eosinophils % (A) 1 %; HCT 35.9 % (39.0-53.0); HGB 11.2 gm/dL (13.0-17.5); Lymphocytes # (A) 0.8 k/uL (1.0-4.8); Lymphocytes % (A) 8 %; MCH 29.9 pg (25.0-35.0); MCV 96.2 fL (80.0-100.0); Mean Platelet Volume 9.5; Monocytes # (A) 0.8 k/uL (0-1.0); Monocytes % (A) 7 %; Neutrophils # (A) 8.9 k/uL (1.3-7.7); Neutrophils % (A) 82 %; Platelet Count 158 k/uL (150-450); RBC 3.74 m/uL (4.30-5.90); RDW 12.5 % (11.5-15.5); WBC 10.9 k/uL (3.8-10.6)
[2024-04-15 08:00] LABS: African American GFR (CKD) 81 (>60 ml/min/1.73 sqM); Anion Gap 4 mmol/L; Blood Urea Nitrogen 21 mg/dL (9-20); Calcium 8.4 mg/dL (8.4-10.2); Carbon Dioxide 25 mmol/L (22-30); Chloride 108 mmol/L (98-107); Glucose 129 mg/dL (74-99); Non-African American GFR(CKD) 70 (>60 ml/min/1.73 sqM); Potassium 3.7 mmol/L (3.5-5.1); Sodium 137 mmol/L (137-145)
[2024-04-15] MEDS ORDERED: IPRATROPIUM-ALBUTEROL 3 ML NEB INHALATION PRN (18:30)
--- NOTE | 2024-04-15 18:44 | P.PN ---
Subjective Progress Note Date: 04/15/24 This is 78-year-old patient, follows with visiting physician Dr. Marcos. Chronic stable medical condition include dementia, hypertension, hyperlipidemia. Per the ER physician patient lives at [facility]. He presented feeling very weak. Staff member noticed him to be more altered than baseline. Has underlying dementia. Just feels generalized unwell and tired. Patient not a very good historian. As per the EMS run sheet patient was not able to use his walker which he is normally able to use. Focal weakness. His appetite is fair. Has some edema. He did say he felt a bit dizzy. Does use a walker. Patient's son is the guardian. Dago of fever in the ER. Staff had felt that patient's urine was strong appearing 04/15/2024 Patient was seen in follow-up this morning extremely weak and reports normally uses a walker although requiring almost two-person assist with transferring from the bed to the commode. Patient continues with condom catheter with concerns of urinary tract infection with sepsis and delirium, present on admission. Preliminary urine cultures showing gram-negative bacilli and patient is maintained on ceftriaxone. Patient with some cough and congestion and remains afebrile will obtain a chest x-ray and start DuoNeb treatments and encourage incentive spirometer use. Patient will need PT/OT therapy evaluation. Mentation not quite back to baseline. Review of systems: Constitutional: reports of fatigue, continued ongoing fever, or chills Cardiovascular: No reports of chest pain or palpitations Respiratory: No reports of shortness of breath, reports weak congested cough GI: No reports of nausea, vomiting, or diarrhea, reports not much of an appetite : No reports of dysuria or retention Neurovascular: reports of extreme weakness, fatigue, and gait dysfunction All medications have been reviewed Physical examination: General: Patient is afebrile on exam although feels warm to touch had a 102 temp this morning, well-developed, elderly appearing, ill-appearing, extremely weak on exam EYES: Pupils equal. Conjunctiva normal. HEENT: External appearance of nose and ears normal, oral cavity grossly normal. NECK: JVD not raised; masses not palpable. HEART: First and second heart sounds are normal; no edema. LUNGS: Diminished breath sounds bilaterally with some scattered coarse rhonchi and upper bronchial congestion noted respiratory rate normal ABDOMEN: Soft, nontender, bowel sounds noted, no masses palpable. PSYCH: Patient can only answer simple questions, very slow speech MUSCULOSKELETAL:No Clubbing/cyanosis; osteoarthritis noted, some muscle wasting noted of the upper and lower extremities NEUROLOGICAL: Cranial nerves grossly intact; no facial asymmetry, diffusely weak difficulty with ambulation on exam Assessment plan: -Acute UTI with cystitis with sepsis, present on admission, patient remains febrile and preliminary culture showing gram-negative bacilli, continue IV ceftriaxone and await urine cultures -Acute metabolic encephalopathy/delirium from sepsis -Essential hypertension, continue blood pressure medication -History of depression, continue home medications including BuSpar -Hyperlipidemia, continue statin therapy -Gait dysfunction with generalized weakness -Possible underlying COPD will initiate DuoNeb treatments, encouraged incentive spirometer use supplemental oxygen as needed -GI prophylaxis: PPI -DVT prophylaxis -Full code Plan: Patient with extreme weakness and requiring almost two-person assist to stand up at the side of the bed and transfer to bedside commode. Patient normally uses a walker and independent prior to admission Patient will continue on ceftriaxone as preliminary urine culture showing gram- negative bacilli and will await finalized cultures Patient with some cough and upper bronchial congestion with minimal wheezing noted will obtain a chest x-ray and also encourage incentive spirometer use treatments Follow-up on repeat labs, replace electrolytes per protocol PT/OT therapy evaluation to discuss possible ECF. Case management to consult The impression and plan of care has been dictated by Keila Cummings, Nurse Practitioner as directed. MD Candice I have performed a history and examination and MDM of this patient, discussed the same with the dictator, and agree with the dictator's assessment and plan as written ,documented as a scribe. Based on total visit time, I have performed more than 50% of the visit. Objective - Vital Signs Vital signs: Vital Signs Temp 98.9 F 04/15/24 09:54 Pulse 83 04/15/24 07:07 Resp 19 04/15/24 07:07 BP 171/71 04/15/24 07:07 Pulse Ox 94 L 04/15/24 07:07 FiO2 Intake & Output 04/14/24 04/15/24 04/15/24 18:59 06:59 18:59 Intake Total 240 Output Total 200 800 350 Balance -200 -560 -350 Weight 81.647 kg Intake: Oral 240 Output: Urine 200 800 350 Other: Voiding Method Diaper Diaper External Catheter External Catheter # Voids 3 - Labs CBC & Chem 7: 04/15/24 07:21 04/15/24 07:21 Labs: Abnormal Lab Results - Last 24 Hours (Table) 04/15/24 04/15/24 Range/Units 07:21 07:21 WBC 10.9 H (3.8-10.6) k/uL RBC 3.74 L (4.30-5.90) m/uL Hgb 11.2 L (13.0-17.5) gm/dL Hct 35.9 L (39.0-53.0) % Neutrophils # 8.9 H (1.3-7.7) k/uL Lymphocytes # 0.8 L (1.0-4.8) k/uL Chloride 108 H (98-107) mmol/L BUN 21 H (9-20) mg/dL Glucose 129 H (74-99) mg/dL Microbiology - Last 24 Hours (Table) 04/13/24 14:07 Blood Culture - Preliminary Blood 04/13/24 14:07 Blood Culture - Preliminary Blood 04/13/24 14:07 Urine Culture - Preliminary Urine,Voided Gram Neg Bacilli
--- NOTE | 2024-04-15 18:57 | XR ---
EXAMINATION TYPE: XR chest 1V portable DATE OF EXAM: 04/15/2024 COMPARISON: 04/13/2024 INDICATION: Shortness of breath TECHNIQUE: Single frontal view of the chest is obtained. FINDINGS: The heart size is normal. The pulmonary vasculature is normal. The lungs are clear. IMPRESSION: 1. No acute pulmonary process.
[2024-04-15] MEDS: IPRATROPIUM-ALBUTEROL 3 ML NEB INHALATION SCH (20:45)
--- NOTE | 2024-04-16 08:14 | US ---
EXAMINATION TYPE: US kidneys/renal and bladder DATE OF EXAM: 04/16/2024 COMPARISON: NONE CLINICAL INDICATION: Male, 78 years old with history of uti and bacteremia; UTI EXAM MEASUREMENTS: Right Kidney: 11.2x5.3x5.6 cm Left Kidney: 12.2x5.9x5.9 cm Right Kidney: No hydronephrosis or masses seen, anechoic areas filled with color on doppler evaluatio n Left Kidney: cystic area measured just inferior to renal pelvis: 2.6x2.6x2.2cm another septated cystic area measured within the cortex at the inferior pole: 2.1x1.6x2.2cm Bladder: wnl Bilateral Jets seen: Yes exam limited by bowel gas and body habitus IMPRESSION: 1. No renal calcification, solid renal mass or hydronephrosis. 2. 2.6 cm simple cortical cyst of the left kidney. 3. small parapelvic cysts or prominent renal pelvises bilaterally.
[2024-04-16 09:21] LABS: Basophils # (A) 0.06 X 10*3/uL (0.00-0.10); Basophils % (A) 0.8 %; Eosinophils # (A) 0.19 X 10*3/uL (0.04-0.35); Eosinophils % (A) 2.7 %; HGB 10.4 g/dL (13.0-17.0); Lymphocytes # (A) 1.02 X 10*3/uL (0.90-5.00); Lymphocytes % (A) 14.3 %; MCH 30.4 pg (27.0-32.0); MCHC 31.5 g/dL (32.0-37.0); MCV 96.5 FL (80.0-97.0); Monocytes # (A) 0.95 X 10*3/uL (0.20-1.00); Monocytes % (A) 13.4 %; NRBC Per 100 WBC 0 X 10*3/uL (0.00-0.01); Neutrophils # (A) 4.87 X 10*3/uL (1.80-7.70); Neutrophils % (A) 68.5 %; Platelet Count 186 X 10*3/uL (140-440); RBC 3.42 X 10*6/uL (4.40-5.60); RDW 12.6 % (11.5-14.5); WBC 7.11 X 10*3/uL (4.50-10.00)
[2024-04-16 09:28] LABS: BUN/Creat Ratio 19.75 Ratio (12.00-20.00); Blood Urea Nitrogen 23.7 mg/dL (9.0-27.0); Calcium 8.3 mg/dL (8.7-10.3); Carbon Dioxide 21.9 mmol/L (21.6-31.8); Chloride 104 mmol/L (96-109); Glucose 137 mg/dL (70-110); Magnesium 1.8 mg/dL (1.5-2.4); Sodium 137 mmol/L (135-145)
[2024-04-16] MEDS: ERTAPENEM 1 GM in SODIUM CHLORIDE 0.9% 50 ML IVPB SCH (16:01)
[2024-04-16] MEDS: PHENAZOPYRIDINE 100 MG TAB PO SCH (16:01)
--- NOTE | 2024-04-16 19:59 | P.PN ---
Subjective Progress Note Date: 04/16/24 This is 78-year-old patient, follows with visiting physician Dr. Marcos. Chronic stable medical condition include dementia, hypertension, hyperlipidemia. Per the ER physician patient lives at [facility]. He presented feeling very weak. Staff member noticed him to be more altered than baseline. Has underlying dementia. Just feels generalized unwell and tired. Patient not a very good historian. As per the EMS run sheet patient was not able to use his walker which he is normally able to use. Focal weakness. His appetite is fair. Has some edema. He did say he felt a bit dizzy. Does use a walker. Patient's son is the guardian. Dago of fever in the ER. Staff had felt that patient's urine was strong appearing 04/15/2024 Patient was seen in follow-up this morning extremely weak and reports normally uses a walker although requiring almost two-person assist with transferring from the bed to the commode. Patient continues with condom catheter with concerns of urinary tract infection with sepsis and delirium, present on admission. Preliminary urine cultures showing gram-negative bacilli and patient is maintained on ceftriaxone. Patient with some cough and congestion and remains afebrile will obtain a chest x-ray and start DuoNeb treatments and encourage incentive spirometer use. Patient will need PT/OT therapy evaluation. Mentation not quite back to baseline. 04/16/2024 Patient is evaluated today in follow up. Patient resting in bed. Pending physical therapy recommendation. Patient reports burning with urination. His urine culture comes back showing ESBL E.Coli. ID consulted for further antibiotic recommendations. Abdomen bladder ultrasound done showing no renal calcification, no solid renal mass and no hydronephrosis. There is a 2.6 cm simple cortical cyst of the left kidney. Small parapelvic cysts or prominent renal pelvises bilaterally. White blood cell count has normalized to 7.11. Renal function normalized with BUN 23.7 and creatinine 1.2. Magnesium 1.8. Chest xray showing no acute process and wheezing has improved at this time. Review of systems: Constitutional: reports of fatigue, continued ongoing fever, or chills Cardiovascular: No reports of chest pain or palpitations Respiratory: No reports of shortness of breath, reports weak congested cough GI: No reports of nausea, vomiting, or diarrhea, reports not much of an appetite : Reports of dysuria. No urgency or frequency noted. Neurovascular: reports of extreme weakness, fatigue, and gait dysfunction All medications have been reviewed Physical examination: General: Patient is afebrile on exam although feels warm to touch had a 102 temp this morning, well-developed, elderly appearing, ill-appearing, extremely weak on exam EYES: Pupils equal. Conjunctiva normal. HEENT: External appearance of nose and ears normal, oral cavity grossly normal. NECK: JVD not raised; masses not palpable. HEART: First and second heart sounds are normal; no edema. LUNGS: Diminished breath sounds bilaterally with some scattered coarse rhonchi and upper bronchial congestion noted respiratory rate normal ABDOMEN: Soft, nontender, bowel sounds noted, no masses palpable. PSYCH: Patient can only answer simple questions, very slow speech MUSCULOSKELETAL:No Clubbing/cyanosis; osteoarthritis noted, some muscle wasting noted of the upper and lower extremities NEUROLOGICAL: Cranial nerves grossly intact; no facial asymmetry, diffusely weak difficulty with ambulation on exam Assessment plan: -Acute UTI with cystitis with sepsis, present on admission, patient remains febrile and preliminary culture showing ESBL, ID following for further antibiotic recommendations. -Acute metabolic encephalopathy/delirium from sepsis improving. -Essential hypertension, continue blood pressure medication -History of depression, continue home medications including BuSpar -Hyperlipidemia, continue statin therapy -Gait dysfunction with generalized weakness -Possible underlying COPD will initiate DuoNeb treatments, encouraged incentive spirometer use supplemental oxygen as needed -GI prophylaxis: PPI -DVT prophylaxis -Full code Plan: Patient with extreme weakness and requiring almost two-person assist to stand up at the side of the bed and transfer to bedside commode. Patient normally uses a walker and independent prior to admission Patient will continue on ceftriaxone, culture showing ESBL. ID consultation. Patient with some cough and upper bronchial congestion which has improved. Chest xray negative. Continue with IS. On room air. Follow-up on repeat labs, replace electrolytes per protocol PT/OT therapy evaluation to discuss possible ECF. Case management to follow up wednesday. The impression and plan of care has been dictated by Milvia Giang, Nurse Practitioner as directed. Dr. Agus MD I have performed a history and physical examination and medical decision making of this patient, discussed the same with the dictator, and agree with the dictators assessment and plan as written, documented as a scribe. Based on total visit time, I have performed more than 50% of this visit. Objective - Vital Signs Vital signs: Vital Signs Temp 98.7 F 04/16/24 07:06 Pulse 96 04/16/24 12:20 Resp 18 04/16/24 07:06 BP 161/81 04/16/24 07:06 Pulse Ox 94 L 04/16/24 08:58 FiO2 Intake & Output 04/15/24 04/16/24 04/16/24 18:59 06:59 18:59 Output Total 950 700 Balance -950 -700 Output: Urine 950 700 Other: Voiding Method Diaper Diaper Diaper External Catheter External Catheter Incontinent External Catheter # Voids 1 # Bowel Movements 1 - Labs CBC & Chem 7: 04/16/24 04:35 04/16/24 04:35 Labs: Abnormal Lab Results - Last 24 Hours (Table) 04/16/24 04/16/24 Range/Units 04:35 04:35 RBC 3.42 L (4.40-5.60) X 10*6/uL Hgb 10.4 L (13.0-17.0) g/dL Hct 33.0 L (39.6-50.0) % MCHC 31.5 L (32.0-37.0) g/dL Glucose 137 H (70-110) mg/dL Calcium 8.3 L (8.7-10.3) mg/dL Microbiology - Last 24 Hours (Table) 04/13/24 14:07 Urine Culture - Final Urine,Voided Escherichia coli 04/13/24 14:07 Blood Culture - Preliminary Blood 04/13/24 14:07 Blood Culture - Preliminary Blood Assessment and Plan Time with Patient: Less than 30
[2024-04-16] MEDS: MAGNESIUM SULFATE-D5W PMX 1 GM in DEXTROSE/WATER 1 100ML.BAG IVPB ONE (20:35)
[2024-04-17 08:55] LABS: BUN/Creat Ratio 19.82 Ratio (12.00-20.00); Blood Urea Nitrogen 21.8 mg/dL (9.0-27.0); Calcium 8.4 mg/dL (8.7-10.3); Carbon Dioxide 26.1 mmol/L (21.6-31.8); Chloride 105 mmol/L (96-109); Glucose 136 mg/dL (70-110); Magnesium 2.1 mg/dL (1.5-2.4); Potassium 3.9 mmol/L (3.5-5.5); Sodium 141 mmol/L (135-145)
--- NOTE | 2024-04-17 09:19 | P.CONS ---
History of Present Illness - Reason for Consult Consult date: 04/16/24 Fever Requesting physician: Larry E Deondre - Chief Complaint Weakness lethargy x few days - History of Present Illness Patient is a 78-year-old male with a past medical history significant for hypertension hyperlipidemia dementia, patient has been brought into the hospital from snf facility for evaluation of generalized weakness apparently the patient woke up the morning of presentation to hospital very weak and staff noticed the patient to be slightly altered than usual patient denied any chest pain shortness of breath abdominal pain nausea or vomiting to the ER physician. Did mention foul-smelling urine with the symptoms the patient has been admitted to the hospital on arrival to the ER patient did have a fever of 102.1 F patient was not tachycardic hypotensive or hypoxic and no need for supplemental oxygen patient did have white count of 16,000 creatinine is 1.20 liver enzymes are normal electrolytes are normal urine was positive influenza RSV COVID testing was negative blood cultures currently pending urine has been finalized with ESBL E. coli infectious disease was consulted for further management of antibiotic therapy, most information has been obtained from review the chart diagnosis. As the patient cannot provide any history Review of Systems Positive points has been mentioned in HPI complete review could not be obtained because of his underlying mental status Past Medical History Past Medical History: Dementia, Hyperlipidemia, Hypertension History of Any Multi-Drug Resistant Organisms: None Reported Past Surgical History: No Surgical Hx Reported Past Anesthesia/Blood Transfusion Reactions: Unable to Obtain Past Psychological History: No Psychological Hx Reported Smoking Status: Former smoker Past Alcohol Use History: None Reported Past Drug Use History: None Reported Medications and Allergies Home Medications Medication Instructions Recorded Confirmed Type Aspirin 325 mg PO DAILY 01/19/24 04/13/24 History Chlorhexidine Gluconate [Peridex] 15 ml PO BID 01/19/24 04/13/24 History Cyanocobalamin [Vitamin B-12 1,000 mcg SQ QMONTHLY 01/19/24 04/13/24 History Injection] Divalproex ER [Depakote ER] 250 mg PO HS 01/19/24 04/13/24 History Simvastatin 40 mg PO HS 01/19/24 04/13/24 History amLODIPine [Norvasc] 5 mg PO HS 01/19/24 04/13/24 History busPIRone HCL 15 mg PO BID 01/19/24 04/13/24 History Losartan Potassium 100 mg PO DAILY 04/13/24 04/13/24 History traZODone HCL [Desyrel] 25 mg PO HS 04/13/24 04/13/24 History Acetaminophen Tab [Tylenol] 650 mg PO Q6HR PRN tab 04/19/24 Rx Ertapenem [INVanz] 1 gm IVPB Q24H #10 each 04/19/24 Rx Ipratropium-Albuterol Nebulize 3 ml INHALATION RT-QID PRN each 04/19/24 Rx [Duoneb 0.5 mg-3 mg/3 ml Soln] Tamsulosin [Flomax] 0.4 mg PO PC-BRKFST cap 04/19/24 Rx Allergies Allergy/AdvReac Type Severity Reaction Status Date / Time No Known Allergies Allergy Verified 04/13/24 14:37 Physical Exam Vitals: Vital Signs Temp Pulse Pulse Resp BP Pulse Ox 04/16/24 13:20 98.2 F 65 18 144/63 96 04/16/24 12:20 96 04/16/24 12:06 76 04/16/24 09:06 74 04/16/24 08:58 94 L 04/16/24 08:56 71 04/16/24 07:06 98.7 F 58 L 18 161/81 91 L 04/16/24 01:25 98 F 75 17 162/89 93 L 04/15/24 20:53 68 04/15/24 20:49 66 04/15/24 19:50 17 Intake and Output 04/15/24 04/16/24 04/16/24 22:59 06:59 14:59 Output Total 600 700 500 Balance -600 -700 -500 Output: Urine 600 700 500 Other: Voiding Method Diaper Diaper External Catheter Incontinent External Catheter GENERAL DESCRIPTION: Elderly male lying in bed, no distress. No tachypnea or accessory muscle of respiration use. HEENT: Shows Pallor , no scleral icterus. Oral mucous membrane is dry. NECK: Trachea central, no thyromegaly. LUNGS: Unlabored breathing. Clear to auscultation anteriorly. No wheeze or crackle. HEART: S1, S2, regular rate and rhythm. No loud murmur ABDOMEN: Soft, no tenderness , guarding or rigidity, no organomegaly EXTREMITIES: No edema of feet. SKIN: No rash, no masses palpable. NEUROLOGICAL: The patient is lethargic orientation could not be determined Results CBC & Chem 7: 04/19/24 04:42 04/19/24 04:42 Labs: Abnormal Lab Results - Last 24 Hours (Table) 04/16/24 04/16/24 Range/Units 04:35 04:35 RBC 3.42 L (4.40-5.60) X 10*6/uL Hgb 10.4 L (13.0-17.0) g/dL Hct 33.0 L (39.6-50.0) % MCHC 31.5 L (32.0-37.0) g/dL Glucose 137 H (70-110) mg/dL Calcium 8.3 L (8.7-10.3) mg/dL Microbiology - Last 24 Hours (Table) 04/13/24 14:07 Urine Culture - Final Urine,Voided Escherichia coli 04/13/24 14:07 Blood Culture - Preliminary Blood 04/13/24 14:07 Blood Culture - Preliminary Blood Assessment and Plan (1) Infection due to ESBL-producing Escherichia coli Status: Acute Code(s): A49.8 - OTHER BACTERIAL INFECTIONS OF UNSPECIFIED SITE; Z16.12 - EXTENDED SPECTRUM BETA LACTAMASE (ESBL) RESISTANCE SNOMED Code(s): 890332088 (2) Sepsis Status: Acute Code(s): A41.9 - SEPSIS, UNSPECIFIED ORGANISM SNOMED Code(s): 29029739 (3) UTI (urinary tract infection) Status: Acute Code(s): N39.0 - URINARY TRACT INFECTION, SITE NOT SPECIFIED SNOMED Code(s): 42355979 Plan: 1patient presented to hospital with sepsis in this patient who did have a fever elevated white count patient did have a foul-smelling urine positive UA likely concerning for urinary source etiology of the sepsis. 2abdominal bladder ultrasound did not show any stone or hydronephrosis. 3we will discontinue Rocephin. 4start the patient on Invanz 1 g daily he will likely need midline for outpatient IV antibiotic therapy to complete his treatment. We will follow on clinical condition and cultures to further adjust medication if needed Thank you for this consultation we will follow the patient along with you Dictation was produced using [email or web address] dictation software. please excuse any grammatical, word or spelling errors. Time with Patient: Greater than 30
--- NOTE | 2024-04-18 06:06 | P.PN ---
Subjective Progress Note Date: 04/17/24 This is 78-year-old patient, follows with visiting physician Dr. Marcos. Chronic stable medical condition include dementia, hypertension, hyperlipidemia. Per the ER physician patient lives at [facility]. He presented feeling very weak. Staff member noticed him to be more altered than baseline. Has underlying dementia. Just feels generalized unwell and tired. Patient not a very good historian. As per the EMS run sheet patient was not able to use his walker which he is normally able to use. Focal weakness. His appetite is fair. Has some edema. He did say he felt a bit dizzy. Does use a walker. Patient's son is the guardian. Dago of fever in the ER. Staff had felt that patient's urine was strong appearing 04/15/2024 Patient was seen in follow-up this morning extremely weak and reports normally uses a walker although requiring almost two-person assist with transferring from the bed to the commode. Patient continues with condom catheter with concerns of urinary tract infection with sepsis and delirium, present on admission. Preliminary urine cultures showing gram-negative bacilli and patient is maintained on ceftriaxone. Patient with some cough and congestion and remains afebrile will obtain a chest x-ray and start DuoNeb treatments and encourage incentive spirometer use. Patient will need PT/OT therapy evaluation. Mentation not quite back to baseline. 04/16/2024 Patient is evaluated today in follow up. Patient resting in bed. Pending physical therapy recommendation. Patient reports burning with urination. His urine culture comes back showing ESBL E.Coli. ID consulted for further antibiotic recommendations. Abdomen bladder ultrasound done showing no renal calcification, no solid renal mass and no hydronephrosis. There is a 2.6 cm simple cortical cyst of the left kidney. Small parapelvic cysts or prominent renal pelvises bilaterally. White blood cell count has normalized to 7.11. Renal function normalized with BUN 23.7 and creatinine 1.2. Magnesium 1.8. Chest xray showing no acute process and wheezing has improved at this time. 04/17/2024 Patient is seen in follow-up today currently sitting up in the chair and is lethargic although arousable. Patient was evaluated by physical therapy recommending rehab and discussed with case management this patient will also likely need midline and IV antibiotic therapy on discharge. Urine culture showing ESBL with E. coli with infectious disease following. Encourage incentive spirometer use with increased activity as tolerated. Also encouraged small frequent meals. Patient is currently afebrile denies chest pain or shortness of breath. No significant wheezing noted on exam. Review of systems: Constitutional: reports of fatigue, no further fever, or chills Cardiovascular: No reports of chest pain or palpitations Respiratory: No reports of shortness of breath, reports weak congested cough GI: No reports of nausea, vomiting, or diarrhea, reports not much of an appetite : Reports of dysuria. No urgency or frequency noted. Neurovascular: reports of extreme weakness, fatigue, and gait dysfunction All medications have been reviewed Physical examination: General: This is an 78-year-old male who is lethargic although arousable, alert and oriented x 2, well-developed, elderly appearing, ill-appearing, extremely weak on exam EYES: Pupils equal. Conjunctiva normal. HEENT: External appearance of nose and ears normal, oral cavity grossly normal. NECK: JVD not raised; masses not palpable. HEART: First and second heart sounds are normal; no edema. LUNGS: Diminished breath sounds bilaterally with some scattered coarse rhonchi and upper bronchial congestion noted respiratory rate normal ABDOMEN: Soft, nontender, bowel sounds noted, no masses palpable. PSYCH: Patient can only answer simple questions, very slow speech MUSCULOSKELETAL:No Clubbing/cyanosis; osteoarthritis noted, some muscle wasting noted of the upper and lower extremities NEUROLOGICAL: Cranial nerves grossly intact; no facial asymmetry, diffusely weak difficulty with ambulation on exam Assessment plan: -Acute UTI with cystitis with sepsis, present on admission, patient culture showing ESBL, ID following for further antibiotic recommendations. -Acute metabolic encephalopathy/delirium from sepsis, improving. -Essential hypertension, continue blood pressure medication -History of depression, continue home medications including BuSpar -Hyperlipidemia, continue statin therapy -Gait dysfunction with generalized weakness -Possible underlying COPD will continue DuoNeb treatments, encouraged incentive spirometer use supplemental oxygen as needed, currently room air -GI prophylaxis: PPI -DVT prophylaxis -Full code Plan: Patient with extreme weakness and requiring almost two-person assist to stand up at the side of the bed and transfer to bedside commode. Patient normally uses a walker and independent prior to admission. Patient will likely need ECF discussed with case management regarding discharge planning Patient currently maintained on ertapenem, culture showing ESBL. ID following and will likely need midline at discharge. Will order midline Patient with some cough and upper bronchial congestion which has improved. Chest xray negative. Continue with IS. On room air. Encouraged small frequent meals and sitting up in the chair with each meal PT/OT therapy evaluated and recommending rehab. Referrals placed with case management following and currently pending. Patient will likely require insurance authorization Possible discharge planning in the next 24 to 48 hours The impression and plan of care has been dictated by Nurse Maria E Pra ctitioner as directed. Dr. Agus MD I have performed a history and physical examination and medical decision making of this patient, discussed the same with the dictator, and agree with the dictat ors assessment and plan as written, documented as a scribe. Based on total visit time, I have performed more than 50% of this visit. Objective - Vital Signs Vital signs: Vital Signs Temp 99.1 F 04/17/24 07:20 Pulse 70 04/17/24 09:57 Resp 18 04/17/24 09:57 BP 186/64 04/17/24 07:20 Pulse Ox 93 L 04/17/24 09:46 FiO2 Intake & Output 04/16/24 04/17/24 04/17/24 18:59 06:59 18:59 Output Total 500 5545 Balance -500 -5545 Output: Urine 500 3945 Straight 1600 Post Void Residual 1600 Other: Voiding Method Diaper Diaper Incontinent Incontinent External Catheter External Catheter # Voids 950 # Bowel Movements 1 - Labs CBC & Chem 7: 04/16/24 04:35 04/17/24 06:12 Labs: Abnormal Lab Results - Last 24 Hours (Table) 04/17/24 Range/Units 06:12 Glucose 136 H (70-110) mg/dL Calcium 8.4 L (8.7-10.3) mg/dL Microbiology - Last 24 Hours (Table) 04/13/24 14:07 Blood Culture - Preliminary Blood 04/13/24 14:07 Blood Culture - Preliminary Blood
[2024-04-18] MEDS: TAMSULOSIN 0.4 MG CAP.ER.24H PO SCH (08:56)
--- NOTE | 2024-04-19 06:14 | P.PN ---
Subjective Progress Note Date: 04/18/24 This is 78-year-old patient, follows with visiting physician Dr. Marcos. Chronic stable medical condition include dementia, hypertension, hyperlipidemia. Per the ER physician patient lives at [facility]. He presented feeling very weak. Staff member noticed him to be more altered than baseline. Has underlying dementia. Just feels generalized unwell and tired. Patient not a very good historian. As per the EMS run sheet patient was not able to use his walker which he is normally able to use. Focal weakness. His appetite is fair. Has some edema. He did say he felt a bit dizzy. Does use a walker. Patient's son is the guardian. Dago of fever in the ER. Staff had felt that patient's urine was strong appearing 04/15/2024 Patient was seen in follow-up this morning extremely weak and reports normally uses a walker although requiring almost two-person assist with transferring from the bed to the commode. Patient continues with condom catheter with concerns of urinary tract infection with sepsis and delirium, present on admission. Preliminary urine cultures showing gram-negative bacilli and patient is maintained on ceftriaxone. Patient with some cough and congestion and remains afebrile will obtain a chest x-ray and start DuoNeb treatments and encourage incentive spirometer use. Patient will need PT/OT therapy evaluation. Mentation not quite back to baseline. 04/16/2024 Patient is evaluated today in follow up. Patient resting in bed. Pending physical therapy recommendation. Patient reports burning with urination. His urine culture comes back showing ESBL E.Coli. ID consulted for further antibiotic recommendations. Abdomen bladder ultrasound done showing no renal calcification, no solid renal mass and no hydronephrosis. There is a 2.6 cm simple cortical cyst of the left kidney. Small parapelvic cysts or prominent renal pelvises bilaterally. White blood cell count has normalized to 7.11. Renal function normalized with BUN 23.7 and creatinine 1.2. Magnesium 1.8. Chest xray showing no acute process and wheezing has improved at this time. 04/17/2024 Patient is seen in follow-up today currently sitting up in the chair and is lethargic although arousable. Patient was evaluated by physical therapy recommending rehab and discussed with case management this patient will also likely need midline and IV antibiotic therapy on discharge. Urine culture showing ESBL with E. coli with infectious disease following. Encourage incentive spirometer use with increased activity as tolerated. Also encouraged small frequent meals. Patient is currently afebrile denies chest pain or shortness of breath. No significant wheezing noted on exam. 04/18/2024 Patient seen and evaluated today currently sitting up in the chair continues with some confusion but is much more awake today. Patient to receive a midline and will continue on antibiotics for 10-day course on discharge for uti. Case management following currently looking into [facility] and will require insurance authorization which was submitted. Patient to continue with indwelling Ivy catheter for retention. Attempted trial void although was unsuccessful. Continue Flomax. Review of systems: Constitutional: no reports of fatigue, no further fever, or chills Cardiovascular: No reports of chest pain or palpitations Respiratory: No reports of shortness of breath, reports weak congested cough GI: No reports of nausea, vomiting, or diarrhea, reports not much of an appetite but eating a little more : Reports of dysuria. No urgency or frequency noted. Neurovascular: reports of extreme weakness, fatigue, and gait dysfunction All medications have been reviewed Physical examination: General: This is an 78-year-old male who is more awake today, alert and oriented x 2, well-developed, elderly appearing, ill-appearing, extremely weak on exam EYES: Pupils equal. Conjunctiva normal. HEENT: External appearance of nose and ears normal, oral cavity grossly normal. NECK: JVD not raised; masses not palpable. HEART: First and second heart sounds are normal; no edema. LUNGS: Diminished breath sounds bilaterally with some scattered coarse rhonchi and upper bronchial congestion noted respiratory rate normal ABDOMEN: Soft, nontender, bowel sounds noted, no masses palpable. PSYCH: Patient can only answer simple questions, very slow speech, improving MUSCULOSKELETAL:No Clubbing/cyanosis; osteoarthritis noted, some muscle wasting noted of the upper and lower extremities NEUROLOGICAL: Cranial nerves grossly intact; no facial asymmetry, diffusely weak difficulty with ambulation on exam Assessment plan: -Acute UTI with cystitis with sepsis, present on admission, patient culture showing ESBL, ID following for further antibiotic recommendations. -Acute metabolic encephalopathy/delirium from sepsis, improving. -Essential hypertension, continue blood pressure medication -History of depression, continue home medications including BuSpar -Hyperlipidemia, continue statin therapy -Gait dysfunction with generalized weakness -Possible underlying COPD will continue DuoNeb treatments, encouraged incentive spirometer use supplemental oxygen as needed, currently room air -GI prophylaxis: PPI -DVT prophylaxis -Full code Plan: Patient with extreme weakness and requiring almost two-person assist to stand up at the side of the bed and transfer to bedside commode. Patient normally uses a walker and independent prior to admission. Patient will need ECF discussed with case management regarding discharge planning. submitting for insurance auth which is pending Patient currently maintained on ertapenem, culture showing ESBL. ID following and has received a midline. Patient will be with 10 days of IV abx on discharge Patient with some cough and upper bronchial congestion which has improved. Chest xray negative. Continue with IS. On room air. Encouraged small frequent meals and sitting up in the chair with each meal PT/OT therapy evaluated and recommending rehab. Patient is agreeable Possible discharge planning in the next 24 to 48 hours The impression and plan of care has been dictated by Keila Cummings, Nurse Practitioner as directed. Dr. Agus MD I have performed a history and physical examination and medical decision making of this patient, discussed the same with the dictator, and agree with the dictators assessment and plan as written, documented as a scribe. Based on total visit time, I have performed more than 50% of this visit. Objective - Vital Signs Vital signs: Vital Signs Temp 97.5 F L 04/18/24 06:43 Pulse 70 04/18/24 09:52 Resp 16 04/18/24 09:52 BP 156/80 04/18/24 06:43 Pulse Ox 96 04/18/24 09:39 FiO2 Intake & Output 04/17/24 04/18/24 04/18/24 18:59 06:59 18:59 Output Total 776 2275 Balance -776 -2275 Output: Urine 400 2275 Uretheral (Ivy) 700 Post Void Residual 376 Other: Voiding Method Diaper Indwelling Catheter Incontinent - Labs CBC & Chem 7: 04/16/24 04:35 04/17/24 06:12
[2024-04-19 07:53] VITALS: BP 159/79; RESP 17; TEMP 98
[2024-04-19 08:43] LABS: Basophils # (A) 0.06 X 10*3/uL (0.00-0.10); Basophils % (A) 0.8 %; Eosinophils # (A) 0.54 X 10*3/uL (0.04-0.35); Eosinophils % (A) 7.1 %; HCT 31.8 % (39.6-50.0); HGB 10.4 g/dL (13.0-17.0); Lymphocytes # (A) 1.93 X 10*3/uL (0.90-5.00); Lymphocytes % (A) 25.2 %; MCHC 32.7 g/dL (32.0-37.0); MCV 94.9 FL (80.0-97.0); Mean Platelet Volume 10.9 FL (9.5-12.2); Monocytes # (A) 0.93 X 10*3/uL (0.20-1.00); Monocytes % (A) 12.2 %; NRBC Per 100 WBC 0 X 10*3/uL (0.00-0.01); Neutrophils # (A) 4.16 X 10*3/uL (1.80-7.70); Neutrophils % (A) 54.3 %; Platelet Count 245 X 10*3/uL (140-440); RBC 3.35 X 10*6/uL (4.40-5.60); RDW 12.8 % (11.5-14.5); WBC 7.65 X 10*3/uL (4.50-10.00)
[2024-04-19 08:53] LABS: BUN/Creat Ratio 17.92 Ratio (12.00-20.00); Blood Urea Nitrogen 21.5 mg/dL (9.0-27.0); Calcium 8.5 mg/dL (8.7-10.3); Carbon Dioxide 24.9 mmol/L (21.6-31.8); Chloride 104 mmol/L (96-109); Glucose 123 mg/dL (70-110); Magnesium 2.1 mg/dL (1.5-2.4); Potassium 4.1 mmol/L (3.5-5.5); Sodium 140 mmol/L (135-145)
--- NOTE | 2024-04-19 09:44 | P.PN ---
Subjective Progress Note Date: 04/17/24 Principal diagnosis: Reason for follow-up is ESBL E. coli urinary tract infection Patient is a 78-year-old male with a past medical history significant for hypertension hyperlipidemia dementia, patient has been brought into the hospital from [facility] facility for evaluation of generalized weakness, patient be diagnosed with urinary tract infection with urine culture finalized with ESBL E. coli. On today's evaluation that is 04/17/2024,the patient is more awake and alert today and denies any fever or any chills, patient is breathing comfortably on room air, the patient denies chest pain shortness of breath and no significant cough, patient denies abdominal pain, no nausea vomiting or diarrhea. Patient did have a creatinine 1.1 no CBC was done today Objective - Vital Signs Vital signs: Vital Signs Temp 97.5 F L 04/17/24 13:39 Pulse 70 04/17/24 13:39 Resp 19 04/17/24 13:39 BP 118/64 04/17/24 13:39 Pulse Ox 92 L 04/17/24 13:39 FiO2 Intake & Output 04/16/24 04/17/24 04/17/24 18:59 06:59 18:59 Output Total 500 5545 50 Balance -500 -5545 -50 Output: Urine 500 3945 50 Straight 1600 Post Void Residual 1600 Other: Voiding Method Diaper Diaper Diaper Incontinent Incontinent Incontinent External Catheter External Catheter # Voids 950 # Bowel Movements 1 - Exam GENERAL DESCRIPTION: An elderly male lying in bed in no distress RESPIRATORY SYSTEM: Unlabored breathing , decreased breath sounds at bases HEART: S1 S2 regular rate and rhythm , ABDOMEN: Soft , no tenderness EXTREMITIES: No edema feet - Labs CBC & Chem 7: 04/19/24 04:42 04/19/24 04:42 Labs: Abnormal Lab Results - Last 24 Hours (Table) 04/17/24 Range/Units 06:12 Glucose 136 H (70-110) mg/dL Calcium 8.4 L (8.7-10.3) mg/dL Microbiology - Last 24 Hours (Table) 04/13/24 14:07 Blood Culture - Preliminary Blood 04/13/24 14:07 Blood Culture - Preliminary Blood Assessment and Plan (1) Infection due to ESBL-producing Escherichia coli Current Visit: Yes Status: Acute Code(s): A49.8 - OTHER BACTERIAL INFECTIONS OF UNSPECIFIED SITE; Z16.12 - EXTENDED SPECTRUM BETA LACTAMASE (ESBL) RESISTANCE SNOMED Code(s): 049083799 (2) Sepsis Current Visit: Yes Status: Acute Code(s): A41.9 - SEPSIS, UNSPECIFIED ORGANISM SNOMED Code(s): 36744836 (3) UTI (urinary tract infection) Current Visit: Yes Status: Acute Code(s): N39.0 - URINARY TRACT INFECTION, SITE NOT SPECIFIED SNOMED Code(s): 64069637 Plan: 1patient presented to hospital with sepsis in this patient who did have a fever elevated white count patient did have a foul-smelling urine positive UA likely c oncerning for urinary source etiology of the sepsis. 2abdominal bladder ultrasound did not show any stone or hydronephrosis. 3patient to continue with Invanz 1 g daily and monitor clinical course closely Dictation was produced using [employer] dictation software. please excuse any grammatical, word or spelling errors.
--- NOTE | 2024-04-19 09:45 | P.PN ---
Subjective Progress Note Date: 04/18/24 Principal diagnosis: Reason for follow-up is ESBL E. coli urinary tract infection Patient is a 78-year-old male with a past medical history significant for hypertension hyperlipidemia dementia, patient has been brought into the hospital from longterm facility for evaluation of generalized weakness, patient be diagnosed with urinary tract infection with urine culture finalized with ESBL E. coli. On today's evaluation that is 04/18/2024,the patient remains to be afebrile, patient is on room air not requiring supplemental oxygen and denies any shortness of breath no chest pain or cough.Patient denies having any nausea or vomiting, no abdominal pain and no diarrhea has been reported Patient white count 7.65, creatinine is 1.2 Objective - Vital Signs Vital signs: Vital Signs Temp 97.5 F L 04/18/24 06:43 Pulse 72 04/18/24 12:42 Resp 18 04/18/24 12:42 BP 156/80 04/18/24 06:43 Pulse Ox 96 04/18/24 09:39 FiO2 Intake & Output 04/17/24 04/18/24 04/18/24 18:59 06:59 18:59 Output Total 776 2275 Balance -776 -2275 Output: Urine 400 2275 Uretheral (Ivy) 700 Post Void Residual 376 Other: Voiding Method Diaper Indwelling Catheter Incontinent - Exam GENERAL DESCRIPTION: An elderly male lying in bed in no distress RESPIRATORY SYSTEM: Unlabored breathing , decreased breath sounds at bases HEART: S1 S2 regular rate and rhythm , ABDOMEN: Soft , no tenderness EXTREMITIES: No edema feet - Labs CBC & Chem 7: 04/19/24 04:42 04/19/24 04:42 Assessment and Plan (1) Infection due to ESBL-producing Escherichia coli Current Visit: Yes Status: Acute Code(s): A49.8 - OTHER BACTERIAL INFECTIONS OF UNSPECIFIED SITE; Z16.12 - EXTENDED SPECTRUM BETA LACTAMASE (ESBL) RESISTANCE SNOMED Code(s): 869210048 (2) Sepsis Current Visit: Yes Status: Acute Code(s): A41.9 - SEPSIS, UNSPECIFIED ORGANISM SNOMED Code(s): 94690015 (3) UTI (urinary tract infection) Current Visit: Yes Status: Acute Code(s): N39.0 - URINARY TRACT INFECTION, SITE NOT SPECIFIED SNOMED Code(s): 20197209 Plan: 1patient presented to hospital with sepsis in this patient who did have a fever elevated white count patient did have a foul-smelling urine positive UA likely concerning for urinary source etiology of the sepsis. 2abdominal bladder ultrasound did not show any stone or hydronephrosis. 3patient did have resolution of his fever he will continue with Invanz plan is for a 10-day course of IV Invanz on discharge for for which midline placed discussed with the [facility] for admitting team Dictation was produced using [employer] dictation software. please excuse any grammatical, word or spelling errors.
[2024-04-19 11:40] VITALS: PULSE 60
--- NOTE | 2024-04-19 12:44 | P.DS ---
Providers Date of admission: 04/13/24 15:39 Expected date of discharge: 04/19/24 Attending physician: Herman Balderrama Consults: 04/15/24 18:00 Consult Physician Routine Consulting Provider: Leo Santana Consult Reason/Comments: fever Do you want consulting provider notified?: Yes Primary care physician: Danny [facility] Course: This is 78-year-old patient, follows with visiting physician Dr. Marcos. Chronic stable medical condition include dementia, hypertension, hyperlipidemia. Per the ER physician patient lives at [facility]. He presented feeling very weak. Staff member noticed him to be more altered than baseline. Has underlying dementia. Just feels generalized unwell and tired. Patient not a very good historian. As per the EMS run sheet patient was not able to use his walker which he is normally able to use. Focal weakness. His appetite is fair. Has some edema. He did say he felt a bit dizzy. Does use a walker. Patient's son is the guardian. Dago of fever in the ER. Staff had felt that patient's urine was strong appearing 04/15/2024 Patient was seen in follow-up this morning extremely weak and reports normally uses a walker although requiring almost two-person assist with transferring from the bed to the commode. Patient continues with condom catheter with concerns of urinary tract infection with sepsis and delirium, present on admission. Preliminary urine cultures showing gram-negative bacilli and patient is maintained on ceftriaxone. Patient with some cough and congestion and remains afebrile will obtain a chest x-ray and start DuoNeb treatments and encourage incentive spirometer use. Patient will need PT/OT therapy evaluation. Mentation not quite back to baseline. 04/16/2024 Patient is evaluated today in follow up. Patient resting in bed. Pending physical therapy recommendation. Patient reports burning with urination. His urine culture comes back showing ESBL E.Coli. ID consulted for further antibio tic recommendations. Abdomen bladder ultrasound done showing no renal calcification, no solid renal mass and no hydronephrosis. There is a 2.6 cm simple cortical cyst of the left kidney. Small parapelvic cysts or prominent renal pelvises bilaterally. White blood cell count has normalized to 7.11. Renal function normalized with BUN 23.7 and creatinine 1.2. Magnesium 1.8. Chest xray showing no acute process and wheezing has improved at this time. 04/17/2024 Patient is seen in follow-up today currently sitting up in the chair and is lethargic although arousable. Patient was evaluated by physical therapy recommending rehab and discussed with case management this patient will also likely need midline and IV antibiotic therapy on discharge. Urine culture showing ESBL with E. coli with infectious disease following. Encourage incentive spirometer use with increased activity as tolerated. Also encouraged small frequent meals. Patient is currently afebrile denies chest pain or shortness of breath. No significant wheezing noted on exam. 04/18/2024 Patient seen and evaluated today currently sitting up in the chair continues with some confusion but is much more awake today. Patient to receive a midline and will continue on antibiotics for 10-day course on discharge for uti. Case management following currently looking into [facility] and will require insurance authorization which was submitted. Patient to continue with indwelling Ivy catheter for retention. Attempted trial void although was unsuccessful. Continue Flomax. April 19, 2024: Up in a chair. 94% room air. Eating well Discussion and discharge planning more than 35 minutes On examination: VITAL SIGNS: [98, 83, 17, 159 x 79, 93% room air] GENERAL APPEARANCE: Up in a chair, comfortable HEENT: Normal external appearance of nose and ear. Oral cavity normal EYES: Pupils equal. Conjunctiva normal. NECK: JVD not raised. Mass not palpable. RESPIRATORY: Respiratory effort normal. Lungs decreased breath sounds CARDIOVASCULAR: First and second sounds normal. No edema. ABDOMEN: Soft. Liver and spleen not palpable. No tenderness. No mass palpable. PSYCHIATRY: Answering simple questions INVESTIGATIONS, reviewed in the clinical context: April 19, 2024: White count 7.6 hemoglobin 10.4 platelets 245 sodium 140 potassium 4.1 creatinine 1.2 Influenza type A, type B, RSV, COVID-19: Not detected Kidney bladder ultrasound: 2.6 cm simple cortical cyst of the left kidney. Urine culture April 13] E. coli Assessment plan: -Acute UTI with cystitis with sepsis, present on admission, patient culture showing ESBL, ID following for further antibiotic recommendations. Complete course with 10-day of IV Invanz per ID -Acute metabolic encephalopathy/delirium from sepsis, better -Essential hypertension, continue blood pressure medication - depression, continue home medications including BuSpar -Hyperlipidemia, continue statin therapy -Gait dysfunction with generalized weakness -COPD will continue DuoNeb treatments, encouraged incentive spirometer use supplemental oxygen as needed, currently room air -Full code Disposition: Qi Rex Plan - Discharge Summary Discharge Rx Participant: No New Discharge Prescriptions: New Acetaminophen Tab [Tylenol] 650 mg PO Q6HR PRN tab PRN Reason: Mild Pain Or Fever > 100.5 Ipratropium-Albuterol Nebulize [Duoneb 0.5 mg-3 mg/3 ml Soln] 3 ml INHALATION RT-QID PRN each PRN Reason: Shortness Of Breath Or Wheezing Tamsulosin [Flomax] 0.4 mg PO PC-BRKFST cap Continue Divalproex ER [Depakote ER] 250 mg PO HS Aspirin 325 mg PO DAILY amLODIPine [Norvasc] 5 mg PO HS Simvastatin 40 mg PO HS Cyanocobalamin [Vitamin B-12 Injection] 1,000 mcg SQ QMONTHLY busPIRone HCL 15 mg PO BID Chlorhexidine Gluconate [Peridex] 15 ml PO BID traZODone HCL [Desyrel] 25 mg PO HS Losartan Potassium 100 mg PO DAILY Discharge Medication List Aspirin 325 mg PO DAILY 01/19/24 [History] Chlorhexidine Gluconate [Peridex] 15 ml PO BID 01/19/24 [History] Cyanocobalamin [Vitamin B-12 Injection] 1,000 mcg SQ QMONTHLY 01/19/24 [History] Divalproex ER [Depakote ER] 250 mg PO HS 01/19/24 [History] Simvastatin 40 mg PO HS 01/19/24 [History] amLODIPine [Norvasc] 5 mg PO HS 01/19/24 [History] busPIRone HCL 15 mg PO BID 01/19/24 [History] Losartan Potassium 100 mg PO DAILY 04/13/24 [History] traZODone HCL [Desyrel] 25 mg PO HS 04/13/24 [History] Acetaminophen Tab [Tylenol] 650 mg PO Q6HR PRN tab 04/19/24 [Rx] Ipratropium-Albuterol Nebulize [Duoneb 0.5 mg-3 mg/3 ml Soln] 3 ml INHALATION RT-QID PRN each 04/19/24 [Rx] Tamsulosin [Flomax] 0.4 mg PO PC-BRKFST cap 04/19/24 [Rx] Follow up Appointment(s)/Referral(s): Danny Marcos MD [Primary Care Provider] - 1-2 Days Leo Santana MD [STAFF PHYSICIAN] - 2 Weeks Activity/Diet/Wound Care/Special Instructions: Regular Diet. Antibiotics per dr santana
--- NOTE | 2024-04-20 14:55 | P.PN ---
Subjective Progress Note Date: 04/19/24 Principal diagnosis: Reason for follow-up is ESBL E. coli urinary tract infection Patient is a 78-year-old male with a past medical history significant for hypertension hyperlipidemia dementia, patient has been [facility] for evaluation of generalized weakness, patient be diagnosed with urinary tract infection with urine culture finalized with ESBL E. coli. On today's evaluation that is 04/19/2024, the patient continues to be afebrile, the patient is on room air and breathing comfortably, the Pt denies having any chest pain or cough, the patient denies having any abdominal pain no vomiting or any diarrhea has been reported by the nursing staff. Patient white count is 7.65, grade is 1.2 blood culture negative Objective - Vital Signs Vital signs: Vital Signs Temp 98.0 F 04/19/24 07:05 Pulse 60 04/19/24 11:39 Resp 17 04/19/24 07:05 BP 159/79 04/19/24 07:05 Pulse Ox 94 L 04/19/24 08:25 FiO2 Intake & Output 04/18/24 04/19/24 04/19/24 18:59 06:59 18:59 Output Total 650 1350 Balance -650 -1350 Output: Urine 650 1350 Other: Voiding Method Indwelling Catheter Indwelling Catheter Indwelling Catheter - Exam GENERAL DESCRIPTION: An elderly male lying in bed in no distress RESPIRATORY SYSTEM: Unlabored breathing , decreased breath sounds at bases HEART: S1 S2 regular rate and rhythm , ABDOMEN: Soft , no tenderness EXTREMITIES: No edema feet - Labs CBC & Chem 7: 04/19/24 04:42 04/19/24 04:42 Labs: Abnormal Lab Results - Last 24 Hours (Table) 04/19/24 04/19/24 Range/Units 04:42 04:42 RBC 3.35 L (4.40-5.60) X 10*6/uL Hgb 10.4 L (13.0-17.0) g/dL Hct 31.8 L (39.6-50.0) % Eosinophils # 0.54 H (0.04-0.35) X 10*3/uL Glucose 123 H (70-110) mg/dL Calcium 8.5 L (8.7-10.3) mg/dL Microbiology - Last 24 Hours (Table) 04/13/24 14:07 Blood Culture - Final Blood 04/13/24 14:07 Blood Culture - Final Blood Assessment and Plan (1) Infection due to ESBL-producing Escherichia coli Status: Acute Code(s): A49.8 - OTHER BACTERIAL INFECTIONS OF UNSPECIFIED SITE; Z16.12 - EXTENDED SPECTRUM BETA LACTAMASE (ESBL) RESISTANCE SNOMED Code(s): 795394282 (2) Sepsis Status: Acute Code(s): A41.9 - SEPSIS, UNSPECIFIED ORGANISM SNOMED Code(s): 81847736 (3) UTI (urinary tract infection) Status: Acute Code(s): N39.0 - URINARY TRACT INFECTION, SITE NOT SPECIFIED SNOMED Code(s): 87862398 Plan: 1patient presented to hospital with sepsis in this patient who did have a fever elevated white count patient did have a foul-smelling urine positive UA likely concerning for urinary source etiology of the sepsis. 2abdominal bladder ultrasound did not show any stone or hydronephrosis. 3patient did have resolution of his fever he will continue with Invanz plan is for a 10-day course of IV Invanz on discharge, medication has been entered into his discharge instruction and close outpatient follow-up Dictation was produced using [employer] dictation software. please excuse any grammatical, word or spelling errors. Time with Patient: Less than 30
== END 2024-04-19 15:27 | DRG 871 ==
LOC: EC 13:31 → 4SSUR 15:39
PROVIDERS: ADMIT Hospitalist; ATTEND Hospitalist
PROC: 05HC33Z Insertion of Infusion Device into Left Basilic Vein, Percutaneous Approach (ICD-10-PCS; principal; 2024-04-18 12:35)
DX: A41.51 Sepsis due to Escherichia coli [E. coli] (principal); G93.41 Metabolic encephalopathy; F03.93 Unspecified dementia, unspecified severity, with mood disturbance; F05 Delirium due to known physiological condition; Z16.12 Extended spectrum beta lactamase (ESBL) resistance; J44.9 Chronic obstructive pulmonary disease, unspecified; N28.1 Cyst of kidney, acquired; R26.89 Other abnormalities of gait and mobility; I10 Essential (primary) hypertension; F32.A Depression, unspecified; N30.90 Cystitis, unspecified without hematuria; B96.20 Unspecified Escherichia coli [E. coli] as the cause of diseases classified elsewhere; E78.5 Hyperlipidemia, unspecified; Z87.891 Personal history of nicotine dependence; Z79.82 Long term (current) use of aspirin; Z79.899 Other long term (current) drug therapy; Z11.52 Encounter for screening for COVID-19
CPT/HCPCS: 36410; 36415; 71045; 71046; 76770; 76937; 80048; 80053; 81001; 83605; 83735; 83880; 84100; 84484; 85025; 85610; 85730; 87040; 87077; 87086; 87186; 87636; 93005; 94640; 94760; 96361; 96365; 96375; 99285

== ENCOUNTER 2025-02-20 21:42 | Inpatient (IN) | payer MEDICARE ==
--- NOTE | 2025-02-20 22:20 | ED ---
Abdominal Pain HPI - General Chief Complaint: Abdominal Pain Stated Complaint: Abd pain Time Seen by Provider: 02/20/25 21:49 Source: patient, EMS Mode of arrival: EMS Limitations: no limitations - History of Present Illness Initial Comments: This patient is an 79-year-old man who presents to have evaluation of lower abdominal pain that has been going on since 4 PM. The patient describes it as constant, cramping, moderate to severe at times. He has not noted worsening or relieving factors. There have been no accompanying symptoms. Patient denies nausea and vomiting. He states that his last bowel movement was approximately 2 hours before the pain came on and seemed normal. No change in urination. Pain does not radiate to the groin or testicles. No chest pain or dyspnea. MD Complaint: abdominal pain Onset/Timin -: hour(s) Location: LLQ, RLQ Radiation: none Migration to: no migration Severity: moderate Quality: cramping, aching Consistency: constant Improves With: nothing Worsens With: nothing Associated Symptoms: denies other symptoms - Related Data Home Medications Medication Instructions Recorded Confirmed Aspirin 325 mg PO HS@199901/19/24 02/21/25 Divalproex ER [Depakote ER] 250 mg PO HS@199901/19/24 02/21/25 amLODIPine [Norvasc] 2.5 mg PO DAILY@79901/19/24 02/21/25 busPIRone HCL 15 mg PO BID@799,199901/19/24 02/21/25 Losartan Potassium 100 mg PO HS@199904/13/24 02/21/25 traZODone HCL [Desyrel] 50 mg PO HS@199904/13/24 02/21/25 Atorvastatin [Lipitor] 10 mg PO HS@199902/21/25 02/21/25 Tamsulosin [Flomax] 0.4 mg PO DAILY@79902/21/25 02/21/25 hydroCHLOROthiazide [Hydrodiuril] 25 mg PO DAILY@79902/21/25 02/21/25 Allergies Allergy/AdvReac Type Severity Reaction Status Date / Time No Known Allergies Allergy Verified 02/21/25 09:15 Review of Systems ROS Statement: Those systems with pertinent positive or pertinent negative responses have been documented in the HPI. ROS Other: All systems not noted in ROS Statement are negative. Constitutional: Denies: fever, chills Respiratory: Denies: cough, dyspnea Cardiovascular: Denies: chest pain, palpitations, edema Gastrointestinal: Reports: abdominal pain. Denies: nausea, vomiting, diarrhea, constipation, melena, hematochezia Genitourinary: Denies: dysuria, hematuria, testicular pain Musculoskeletal: Denies: back pain Skin: Denies: rash Neurological: Denies: headache, weakness Past Medical History Past Medical History: Dementia, Hyperlipidemia, Hypertension Additional Past Medical History / Comment(s): abdominal aortic aneurysm History of Any Multi-Drug Resistant Organisms: None Reported Past Surgical History: Heart Catheterization With Stent, Tonsillectomy Past Anesthesia/Blood Transfusion Reactions: Unable to Obtain Past Psychological History: No Psychological Hx Reported Smoking Status: Former smoker Past Alcohol Use History: None Reported Past Drug Use History: None Reported General Exam General appearance: alert, in no apparent distress Head exam: Present: atraumatic, normocephalic, normal inspection Eye exam: Present: normal appearance. Absent: scleral icterus, conjunctival injection ENT exam: Present: normal oropharynx Neck exam: Present: normal inspection Respiratory exam: Present: normal lung sounds bilaterally. Absent: respiratory distress, wheezes, rales, rhonchi, stridor, accessory muscle use Cardiovascular Exam: Present: regular rate, normal rhythm, normal heart sounds. Absent: systolic murmur, diastolic murmur, rubs, gallop GI/Abdominal exam: Present: soft, tenderness. Absent: distended, guarding, r ebound, rigid, mass, pulsatile mass, hernia Extremities exam: Present: normal inspection, normal capillary refill. Absent: pedal edema, calf tenderness Back exam: Present: normal inspection. Absent: CVA tenderness (R), CVA tenderness (L) Neurological exam: Present: alert Skin exam: Present: warm, dry, intact, normal color. Absent: rash Course Vital Signs 02/20/25 02/21/25 02/21/25 21:43 00:00 01:42 Temperature 98.7 F Pulse Rate 66 81 86 Pulse Rate [ Left] Respiratory 18 18 18 Rate Blood Pressure 169/78 158/74 145/78 Blood Pressure [Right Arm] O2 Sat by Pulse 96 95 95 Oximetry 02/21/25 02:00 Temperature 98.1 F Pulse Rate Pulse Rate [ 78 Left] Respiratory 16 Rate Blood Pressure Blood Pressure 150/65 [Right Arm] O2 Sat by Pulse 93 L Oximetry Medical Decision Making - Medical Decision Making The patient had CT scan of the abdomen and pelvis that I interpreted as showing distended transverse colon with suspected partial obstruction. No free air or acute surgical condition. Was pt. sent in by a medical professional or institution (, [facility], TAXONOMY TEACHER, urgent care, hospital, or fdc...) When possible be specific @ -[No] Did you speak to anyone other than the patient for history (EMS, parent, family, police, friend...)? What history was obtained from this source @ -[No] Did you review nursing and triage notes (agree or disagree)? Why? @ -[I reviewed and agree with nursing and triage notes] Were old charts reviewed (outside hosp., previous admission, EMS record, old EKG, old radiological studies, urgent care reports/EKG's, fdc records)? Report findings @ -[No old charts were reviewed] Differential Diagnosis (chest pain, altered mental status, abdominal pain women, abdominal pain men, vaginal bleeding, weakness, fever, dyspnea, syncope, headache, dizziness, GI bleed, back pain, seizure, CVA, palpatations, mental health, musculoskeletal)? @ -[Differential Abdominal Pain Men: Appendicitis, cholecystitis, diverticulosis, ischemic bowel, pancreatitis, hepatitis, UTI, gastroenteritis, AAA, incarcerated hernia, bowel obstruction, constipation, inflammatory bowel, hepatitis, peptic ulcer disease, splenic infarction, perforated viscus, testicular torsion, this is not meant to be an all-inclusive list EKG interpreted by me (3pts min.). @ -[As above] X-rays interpreted by me (1pt min.). @ -[None done] CT interpreted by me (1pt min.). @ -[I interpreted as above U/S interpreted by me (1pt. min.). @ -[None done] What testing was considered but not performed or refused? (CT, X-rays, U/S, labs)? Why? @ -[None] What meds were considered but not given or refused? Why? @ -[None] Did you discuss the management of the patient with other professionals (professionals i.e. , [facility], TAXONOMY TEACHER, lab, RT, psych nurse, social media developer, auto glass worker, teacher, staff air tactical officer, machine adjuster leader case trim)? Give summary @ -[Yes Case discussed with admitting physician Was smoking cessation discussed for >3mins.? @ -[No] Was critical care preformed (if so, how long)? @ -[No] Were there social determinants of health that impacted care today? How? (Homelessness, low income, unemployed, alcoholism, drug addiction, transportation, low edu. Level, literacy, decrease access to med. care, correction, rehab)? @ -[No] Was there de-escalation of care discussed even if they declined (Discuss DNR or withdrawal of care, Hospice)? DNR status @ -[No] What co-morbidities impacted this encounter? (DM, HTN, Smoking, COPD, CAD, Cancer, CVA, ARF, Chemo, Hep., AIDS, mental health diagnosis, sleep apnea, morbid obesity)? @ -[None] Was patient admitted / discharged? Hospital course, mention meds given and route, prescriptions, significant lab abnormalities, going to OR and other pertinent info. @ -[Patient is 79-year-old man presenting with abdominal pain and found to have evidence of bowel obstruction on the CT scan. Case discussed with admitting physician and treatment recommendations incorporated Undiagnosed new problem with uncertain prognosis? @ -[No] Drug Therapy requiring intensive monitoring for toxicity (Heparin, Nitro, Insulin, Cardizem)? @ -[No] Were any procedures done? @ -[No] Diagnosis/symptom? @ -[Acute abdominal pain Acute bowel obstruction Acute, or Chronic, or Acute on Chronic? @ -[Acute Uncomplicated (without systemic symptoms) or Complicated (systemic symptoms)? @ -[Uncomplicated Side effects of treatment? @ -[No] Exacerbation, Progression, or Severe Exacerbation? @ -[No] Poses a threat to life or bodily function? How? (Chest pain, [place], [place], pneumonia, PE, COPD, DKA, ARF, appy, cholecystitis, CVA, Diverticulitis, Homicidal, Suicidal, threat to staff... and all critical care pts) @ -[Yes, requires admission with surgical consultation All treatments are based on ideal body weight as in ED triage - Lab Data Result diagrams: 03/04/25 03:12 03/05/25 03:11 Lab Results 02/20/25 02/20/25 02/20/25 Range/Units 22:23 22:23 22:23 WBC 10.04 H (4.50-10.00) 10*3/uL RBC 4.03 L (4.40-5.60) 10*6/uL Hgb 12.5 L (13.0-17.0) g/dL Hct 37.7 L (39.6-50.0) % MCV 93.5 (80.0-97.0) fL MCH 31.0 (27.0-32.0) pg MCHC 33.2 (32.0-37.0) g/dL Plt Count 244 (140-440) 10*3/uL MPV 10.4 (9.5-12.2) fL Immature Gran % (Auto) 0.2 % Neutrophils % 82.9 % Lymphocytes % 11.0 % Monocytes % 4.7 % Eosinophils % 0.7 % Basophils % 0.5 % Immature Gran # 0.02 (0.00-0.04) 10*3/uL Neutrophils # 8.33 H (1.80-7.70) 10*3/uL Lymphocytes # 1.10 (0.90-5.00) 10*3/uL Monocytes # 0.47 (0.20-1.00) 10*3/uL Eosinophils # 0.07 (0.04-0.35) 10*3/uL Basophils # 0.05 (0.00-0.10) 10*3/uL Sodium 142 (137-145) mmol/L Potassium 4.2 (3.5-5.1) mmol/L Chloride 104 (98-107) mmol/L Carbon Dioxide 28 (22-30) mmol/L Anion Gap 10 mmol/L BUN 33 H (9-20) mg/dL Creatinine 1.44 H (0.66-1.25) mg/dL Est GFR (CKD-EPI)AfAm 52 (>60 ml/min/1.73 sqM) Est GFR (CKD-EPI)NonAf 45 (>60 ml/min/1.73 sqM) Glucose 149 H (74-99) mg/dL Plasma Lactic Acid Addy 1.1 (0.7-2.0) mmol/L Calcium 9.5 (8.4-10.2) mg/dL Total Bilirubin 0.6 (0.2-1.3) mg/dL AST 19 (17-59) U/L ALT 15 (4-49) U/L Alkaline Phosphatase 85 (38-126) U/L Total Protein 7.9 (6.3-8.2) g/dL Albumin 4.4 (3.5-5.0) g/dL Amylase 59 (30-110) U/L Lipase 105 (23-300) U/L Urine Color Urine Appearance (Clear) Urine pH (5.0-8.0) Ur Specific [place] (1.001-1.035) Urine Protein (Negative) Urine Glucose (UA) (Negative) Urine Ketones (Negative) Urine Blood (Negative) Urine Nitrite (Negative) Urine Bilirubin (Negative) Urine Urobilinogen (<2.0) mg/dL Ur Leukocyte Esterase (Negative) Urine RBC (0-5) /hpf Urine WBC (0-5) /hpf Urine WBC Clumps (None) /hpf Triple Phos Crystals (None) /hpf Urine Bacteria (None) /hpf Hyaline Casts (0-2) /lpf Urine Mucus (None) /hpf 02/20/25 Range/Units 23:43 WBC (4.50-10.00) 10*3/uL RBC (4.40-5.60) 10*6/uL Hgb (13.0-17.0) g/dL Hct (39.6-50.0) % MCV (80.0-97.0) fL MCH (27.0-32.0) pg MCHC (32.0-37.0) g/dL Plt Count (140-440) 10*3/uL MPV (9.5-12.2) fL Immature Gran % (Auto) % Neutrophils % % Lymphocytes % % Monocytes % % Eosinophils % % Basophils % % Immature Gran # (0.00-0.04) 10*3/uL Neutrophils # (1.80-7.70) 10*3/uL Lymphocytes # (0.90-5.00) 10*3/uL Monocytes # (0.20-1.00) 10*3/uL Eosinophils # (0.04-0.35) 10*3/uL Basophils # (0.00-0.10) 10*3/uL Sodium (137-145) mmol/L Potassium (3.5-5.1) mmol/L Chloride (98-107) mmol/L Carbon Dioxide (22-30) mmol/L Anion Gap mmol/L BUN (9-20) mg/dL Creatinine (0.66-1.25) mg/dL Est GFR (CKD-EPI)AfAm (>60 ml/min/1.73 sqM) Est GFR (CKD-EPI)NonAf (>60 ml/min/1.73 sqM) Glucose (74-99) mg/dL Plasma Lactic Acid Addy (0.7-2.0) mmol/L Calcium (8.4-10.2) mg/dL Total Bilirubin (0.2-1.3) mg/dL AST (17-59) U/L ALT (4-49) U/L Alkaline Phosphatase (38-126) U/L Total Protein (6.3-8.2) g/dL Albumin (3.5-5.0) g/dL Amylase (30-110) U/L Lipase (23-300) U/L Urine Color Yellow Urine Appearance Cloudy (Clear) Urine pH 7.5 (5.0-8.0) Ur Specific [place] 1.021 (1.001-1.035) Urine Protein 1+ H (Negative) Urine Glucose (UA) Negative (Negative) Urine Ketones Negative (Negative) Urine Blood Trace H (Negative) Urine Nitrite Negative (Negative) Urine Bilirubin Negative (Negative) Urine Urobilinogen <2.0 (<2.0) mg/dL Ur Leukocyte Esterase Large H (Negative) Urine RBC 2 (0-5) /hpf Urine WBC 129 H (0-5) /hpf Urine WBC Clumps Rare H (None) /hpf Triple Phos Crystals Rare H (None) /hpf Urine Bacteria Occasional H (None) /hpf Hyaline Casts 1 (0-2) /lpf Urine Mucus Rare H (None) /hpf - EKG Data -: EKG Interpreted by Ar EKG shows normal: sinus rhythm, axis (Normal), intervals (Normal), QRS complexes (Low voltage QRS complexes. Possible pulmonary disease pattern) Rate: normal (Rate 74 bpm) Disposition Clinical Impression: Abdominal pain, Partial bowel obstruction Disposition: ADMITTED IP TO THIS [facility] Condition: Fair Is patient prescribed a controlled substance at d/c from ED?: No
[2025-02-20 22:27] LABS: Basophils # (A) 0.05 10*3/uL (0.00-0.10); Basophils % (A) 0.5 %; Eosinophils # (A) 0.07 10*3/uL (0.04-0.35); Eosinophils % (A) 0.7 %; HCT 37.7 % (39.6-50.0); HGB 12.5 g/dL (13.0-17.0); MCHC 33.2 g/dL (32.0-37.0); MCV 93.5 fL (80.0-97.0); Mean Platelet Volume 10.4 fL (9.5-12.2); Monocytes # (A) 0.47 10*3/uL (0.20-1.00); Monocytes % (A) 4.7 %; Neutrophils # (A) 8.33 10*3/uL (1.80-7.70); Neutrophils % (A) 82.9 %; Platelet Count 244 10*3/uL (140-440); RBC 4.03 10*6/uL (4.40-5.60); RDW 12.3 % (11.5-14.5); WBC 10.04 10*3/uL (4.50-10.00)
[2025-02-20 22:45] LABS: ALT 15 U/L (4-49); AST 19 U/L (17-59); African American GFR (CKD) 52 (>60 ml/min/1.73 sqM); Albumin 4.4 g/dL (3.5-5.0); Alkaline Phosphatase 85 U/L (38-126); Amylase 59 U/L (30-110); Anion Gap 10 mmol/L; Blood Urea Nitrogen 33 mg/dL (9-20); Calcium 9.5 mg/dL (8.4-10.2); Carbon Dioxide 28 mmol/L (22-30); Chloride 104 mmol/L (98-107); Glucose 149 mg/dL (74-99); Lipase 105 U/L (23-300); Non-African American GFR(CKD) 45 (>60 ml/min/1.73 sqM); Potassium 4.2 mmol/L (3.5-5.1); Sodium 142 mmol/L (137-145); Total Bilirubin 0.6 mg/dL (0.2-1.3); Total Protein 7.9 g/dL (6.3-8.2)
[2025-02-20] MEDS: ONDANSETRON 4 MG/2 ML VIAL IVP STA (23:02)
--- NOTE | 2025-02-21 00:16 | CT ---
EXAMINATION TYPE: CT abdomen pelvis wo con CT DLP: 992.7 mGycm, Automated exposure control for dose reduction was used. DATE OF EXAM: 02/21/2025 12:01 AM COMPARISON: Re-ultrasound 04/16/2024 CLINICAL INDICATION:Male, 79 years old with history of Acute abdominal pain, nonlocalized; pt present s with c/o abd pain starting today at 1600, pt states he has last BM at approx 1400. denies n/v/d TECHNIQUE: Standard CT of the abdomen and pelvis without IV or oral contrast. Lack of IV or oral co ntrast limits evaluation of solid and hollow organ viscera. Coronal and sagittal reformats were perfo rmed. FINDINGS: LOWER CHEST: Minimal left lower lobe dependent subsegmental atelectasis. Cardiomegaly. Coronary arter y calcifications. ABDOMEN LIVER: Subcentimeter left hepatic lobe hypodense focus which is too small to characterize but likely represents a cyst.a GALLBLADDER AND BILE DUCTS: Unremarkable noncontrast appearance. No biliary ductal dilatation. PANCREAS: Mildly atrophic. SPLEEN: Unremarkable noncontrast appearance. ADRENAL GLANDS: Unremarkable noncontrast appearance.. KIDNEYS AND URETERS: No evidence of hydronephrosis. No right renal calculi. Punctate nonobstructive l eft renal calculus. Mild bilateral perinephric fat stranding. No ureteral calculus. PELVIS BLADDER: Incompletely distended but grossly unremarkable. REPRODUCTIVE: Coarse calcifications of the prostate gland are identified. ABDOMEN & PELVIS STOMACH AND BOWEL: Stomach and duodenum are unremarkable. Scattered colonic diverticulosis. There is focal short segment of circumferential wall thickening with with diverticula involving the descending colon. There is adjacent tiny surrounding lymph nodes with stranding changes. (Series 202, image 52) . Mildly dilated transverse colon upstream of this measuring up to 6.3 cm. Decreased caliber identifi ed within the hepatic flexure. No surrounding organized fluid collection. Minimal small bowel feces s ign. No small bowel dilatation. The appendix is not identified however there is no significant inflam matory changes within the right lower quadrant. PERITONEUM: No evidence of pneumoperitoneum or free fluid. VASCULATURE: Moderate atherosclerotic calcifications are present throughout the abdominal aorta and i ts branches. Distal abdominal aortic fusiform aneurysm measuring 4.4 x 4.3 cm (series 201, image 37). MUSCULOSKELETAL: No acute osseous abnormalities. No aggressive osseous lesion. Multilevel degenerativ e disc disease. LYMPH NODES: No gross evidence for lymphadenopathy. SOFT TISSUE/ABDOMINAL WALL: Unremarkable IMPRESSION: 1. Mildly dilated transverse colon with focal transition point involving the left descending colon w ith some short segment circumferential wall thickening and surrounding fat stranding with tiny adjace nt lymph nodes. There are diverticula in this region. Findings may represent colitis versus diverticu litis with underlying neoplasm not excluded. Findings could represent low-grade partial large bowel o bstruction versus colonic ileus. Additionally there is small bowel feces sign without dilated small b owel. Recommend further evaluation with colonoscopy if not recently performed after treatment. 2. Distal abdominal aortic aneurysm measuring up to 4.4 cm. 3. Punctate nonobstructive left renal calculus. [facility], , 02/21/2025 12:14 AM
[2025-02-21] MEDS ORDERED: MORPHINE SULFATE 4 MG/ML SYRINGE IV PRN (00:20)
[2025-02-21] MEDS ORDERED: NALOXONE 0.4 MG/ML 1 ML VIAL IV PRN (00:20)
[2025-02-21] MEDS ORDERED: ACETAMINOPHEN TAB 325 MG TAB PO PRN (00:20)
[2025-02-21 00:29] LABS: Appearance,Urine Cloudy (Clear); Bacteria,Urine Occasional /hpf; Bilirubin,Urine Negative (Negative); Blood,Urine Trace (Negative); Color,Urine Yellow; Glucose,Urine (UA) Negative (Negative); Hyaline Casts,Urine 1 /lpf (0-2); Ketones,Urine Negative (Negative); Leukocyte Esterase,Urine Large (Negative); Mucus,Urine Rare /hpf; Nitrite,Urine Negative (Negative); PH, Urine 7.5 (5.0-8.0); Protein,Urine 1+ (Negative); RBC,Urine 2 /hpf (0-5); Specific Gravity,Urine 1.021 (1.001-1.035); Triple Phosphate Crystal,Urine Rare /hpf; Urobilinogen,Urine <2.0 mg/dL (<2.0); WBC,Urine 129 /hpf (0-5)
[2025-02-21] MEDS: SODIUM CHLORIDE 0.9% 1,000 ML IV SCH (01:48)
[2025-02-21 05:22] LABS: Glucose,Whole Blood 137 mg/dL (70-110)
[2025-02-21] MEDS: ONDANSETRON 4 MG/2 ML VIAL IVP PRN (06:43)
[2025-02-21] MEDS: CYANOCOBALAMIN 1,000 MCG/ML 1 ML VIAL SQ SCH (09:26)
[2025-02-21] MEDS: PANTOPRAZOLE 40 MG/10 ML VIAL IV SCH (09:26)
[2025-02-21] MEDS: LOSARTAN 50 MG TAB PO SCH (09:27)
[2025-02-21] MEDS: TAMSULOSIN 0.4 MG CAP.ER.24H PO SCH (09:27)
[2025-02-21] MEDS: busPIRone HCl 5 MG TAB PO SCH (09:27)
[2025-02-21] MEDS: ASPIRIN 325 MG TAB PO SCH (09:28)
--- NOTE | 2025-02-21 13:07 | P.CONS ---
History of Present Illness - Reason for Consult Consult date: 02/21/25 Partial colonic obstruction Requesting physician: Dillon Bishop - Chief Complaint Abdominal pain - History of Present Illness This a pleasant 79-year-old male with a past medical history of hyperlipidemia, hypertension, and dementia who had presented to the emergency department with complaints of abdominal pain that started yesterday afternoon around 4 PM. He had no associated nausea or vomiting. Had a reported bowel movement yesterday prior to coming in to the hospital. CT of the abdomen pelvis concerning for possible obstruction. General surgery and gastroenterology consulted. Patient currently denies any abdominal pain nausea or vomiting. States he is passed a little gas but no bowel movement today. Reports last colonoscopy about 8 years ago with no abnormal findings. No history of colitis. No history of abdominal surgeries or previous bowel obstructions. CT of the abdomen pelvis that reported mildly dilated transverse colon with focal transition point involving left descending colon with some short segment circumferential wall thickening and surrounding fat stranding with adjacent lymph nodes. Diverticula in the region that may represent colitis versus diverticulitis with underlying neoplasm not excluded. Findings could represent low-grade partial large bowel obstruction versus colonic ileus. Additional small bowel feces without dilated small bowel. Recommend further evaluation with colonoscopy if not recently performed. Distal abdominal aortic aneurysm measuring up to 4.4 cm. Punctate nonobstructive left renal calculus. Review of Systems REVIEW OF SYSTEMS: CARDIOPULMONARY: No chest pain or shortness of breath. Gastrointestinal: Abdominal pain. No nausea or vomiting. No hematemesis, coffee-ground emesis. No rectal bleeding, or melena. GENITOURINARY: No dysuria or hematuria. MUSCULOSKELETAL: Reports normal range of motion. Joint pain. SKIN: No rashes. No jaundice. ENDOCRINE: No chills, fevers. No excessive weight gain or loss. No polydipsia or polyuria. PSYCHIATRIC: Unremarkable. NEUROLOGY: No change in mental status. Denies dizziness, headache. ENT: Vision unremarkable. CONSTITUTIONAL: No recent weight loss. No fever, chills, night sweats. Past Medical History Past Medical History: Dementia, Hyperlipidemia, Hypertension Additional Past Medical History / Comment(s): abdominal aortic aneurysm History of Any Multi-Drug Resistant Organisms: None Reported Past Surgical History: Heart Catheterization With Stent, Tonsillectomy Past Anesthesia/Blood Transfusion Reactions: Unable to Obtain Date of Last Stent Placement:: Unknown Past Psychological History: No Psychological Hx Reported Smoking Status: Former smoker Past Alcohol Use History: None Reported Past Drug Use History: None Reported Medications and Allergies Home Medications Medication Instructions Recorded Confirmed Type Aspirin 325 mg PO HS@199901/19/24 02/21/25 History Divalproex ER [Depakote ER] 250 mg PO HS@199901/19/24 02/21/25 History amLODIPine [Norvasc] 2.5 mg PO DAILY@79901/19/24 02/21/25 History busPIRone HCL 15 mg PO BID@799,199901/19/24 02/21/25 History Losartan Potassium 100 mg PO HS@199904/13/24 02/21/25 History traZODone HCL [Desyrel] 50 mg PO HS@199904/13/24 02/21/25 History Atorvastatin [Lipitor] 10 mg PO HS@199902/21/25 02/21/25 History Tamsulosin [Flomax] 0.4 mg PO DAILY@79902/21/25 02/21/25 History hydroCHLOROthiazide [Hydrodiuril] 25 mg PO DAILY@79902/21/25 02/21/25 History Allergies Allergy/AdvReac Type Severity Reaction Status Date / Time No Known Allergies Allergy Verified 02/21/25 09:15 Physical Exam Vitals: Vital Signs Temp Pulse Pulse Pulse Resp BP BP 02/21/25 07:45 98.9 F 72 18 152/75 02/21/25 02:37 16 02/21/25 02:00 98.1 F 78 16 150/65 02/21/25 01:42 86 18 145/78 02/21/25 00:00 81 18 158/74 02/20/25 21:43 98.7 F 66 18 169/78 Pulse Ox 02/21/25 07:45 90 L 02/21/25 02:37 02/21/25 02:00 93 L 02/21/25 01:42 95 02/21/25 00:00 95 02/20/25 21:43 96 Intake and Output 02/20/25 02/21/25 02/21/25 22:59 06:59 14:59 Intake Total 375 Balance 375 Intake: Intake, IV Titration 375 Amount Sodium Chloride 0.9% 1, 375 000 ml @ 75 mls/hr IV . [id number] [facility] Rx#:[id number] Other: Voiding Method Diaper Toilet Urinal Weight 104.326 kg 104.326 kg General appearance: The patient is alert, oriented, appears in no acute distress. Obese. HET: Head is normocephalic and atraumatic. Conjunctiva pink. Sclera anicteric. Neck: Supple without lymphadenopathy. Trachea midline. Heart: Regular. Lungs: Equal expansion, normal respiratory effort. Abdomen: Soft, nontender, mild distention. Skin: No rashes. No jaundice. Extremities: Normal skin color and turgor. No pedal edema. Neurological: No focal deficits. Alert and oriented x3. Results CBC & Chem 7: 02/20/25 22:23 02/20/25 22:23 Labs: Abnormal Lab Results - Last 24 Hours (Table) 02/20/25 02/20/25 02/20/25 Range/Units 22:23 22:23 23:43 WBC 10.04 H (4.50-10.00) 10*3/uL RBC 4.03 L (4.40-5.60) 10*6/uL Hgb 12.5 L (13.0-17.0) g/dL Hct 37.7 L (39.6-50.0) % Neutrophils # 8.33 H (1.80-7.70) 10*3/uL BUN 33 H (9-20) mg/dL Creatinine 1.44 H (0.66-1.25) mg/dL Glucose 149 H (74-99) mg/dL POC Glucose (mg/dL) (70-110) mg/dL Urine Protein 1+ H (Negative) Urine Blood Trace H (Negative) Ur Leukocyte Esterase Large H (Negative) Urine WBC 129 H (0-5) /hpf Urine WBC Clumps Rare H (None) /hpf Triple Phos Crystals Rare H (None) /hpf Urine Bacteria Occasional H (None) /hpf Urine Mucus Rare H (None) /hpf 02/21/25 Range/Units 05:20 WBC (4.50-10.00) 10*3/uL RBC (4.40-5.60) 10*6/uL Hgb (13.0-17.0) g/dL Hct (39.6-50.0) % Neutrophils # (1.80-7.70) 10*3/uL BUN (9-20) mg/dL Creatinine (0.66-1.25) mg/dL Glucose (74-99) mg/dL POC Glucose (mg/dL) 137 H (70-110) mg/dL Urine Protein (Negative) Urine Blood (Negative) Ur Leukocyte Esterase (Negative) Urine WBC (0-5) /hpf Urine WBC Clumps (None) /hpf Triple Phos Crystals (None) /hpf Urine Bacteria (None) /hpf Urine Mucus (None) /hpf Assessment and Plan (1) Abdominal pain Narrative/Plan: 79-year-old male presenting with acute onset of pain yesterday afternoon with CT evidence concerning for possible bowel obstruction with dilated transverse colon focal transition point involving left descending colon with some wall thickening and fat stranding with diverticular in the area possible colitis versus diverticulitis and neoplasm not being ruled out. Also concern for possible low-grade large bowel obstruction versus colonic ileus. Patient had bowel movement yesterday, passing gas today with no nausea or vomiting. Last colonoscopy about 8 years ago. Recommend medical management at this time and patient will need colonoscopy in near future. Current Visit: Yes Status: Acute Code(s): R10.9 - UNSPECIFIED ABDOMINAL PAIN SNOMED Code(s): 86659875 (2) Partial bowel obstruction Current Visit: Yes Status: Acute Code(s): K56.600 - PARTIAL INTESTINAL OBSTRUCTION, UNSPECIFIED TO CAUSE SNOMED Code(s): 67166253293341123 Plan: 1. Continue symptomatic and supportive care 2. Start clear liquid diet. N.p.o. after midnight 3. Pain medication as needed 4. Antiemetics as needed 5. Protonix 40 mg daily for GI prophylaxis 6. Patient discussed with general surgery. Patient is cleared to start clear liquid diet and bowel prep. Will plan for colonoscopy tomorrow. 7. Hold Lovenox 8. Further recommendations forthcoming based on clinical course Thank you for this consultation, we will continue to follow. Dr. Domitila Staley I agree with the dictator's note, documented as a scribe by Peri Chery.
[2025-02-21] MEDS: ENOXAPARIN 40 MG/0.4 ML SYRINGE SQ SCH ×2 (13:41→17:26)
--- NOTE | 2025-02-21 14:33 | P.GSCN ---
History of Present Illness Consult date: 02/21/25 History of present illness: CHIEF COMPLAINT: Abdominal pain HISTORY OF PRESENT ILLNESS: This is a 79-year-old male who presented the hospital with complaints of abdominal pain that started yesterday around 4 PM. Patient reports pain in was mostly in the left lower quadrant. He reports having a normal bowel movement yesterday. He has had some flatus today. He had a CT scan abdomen and pelvis that reported mildly dilated transverse colon with focal transition point involving the left descending colon with short segment circumferential wall thickening and surrounding fat stranding with tiny adjacent lymph nodes. Findings may represent colitis versus diverticulitis with underlying neoplasm not excluded. Findings could represent a low-grade partial large bowel obstruction versus colonic ileus. Additionally there is small bowel feces sign without dilated small bowel. Patient does report prior history of a bowel obstruction that sounds ago was managed conservatively. He denies any surgeries on the abdomen. Denies any history of colitis. He reports his last colonoscopy was several years ago. PAST MEDICAL HISTORY: See below PAST SURGICAL HISTORY: See below MEDICATIONS: See below ALLERGIES: See below SOCIAL HISTORY: No illicit drug use. REVIEW OF SYSTEMS: CONSTITUTIONAL: Denies fever or chills. HEENT: Denies blurred vision, vision changes, or eye pain. Denies hemoptysis CARDIOVASCULAR: Denies chest pain or pressure. RESPIRATORY: No shortness of breath. GASTROINTESTINAL: See HPI for pertinent findings HEMATOLOGIC: Denies bleeding disorders. GENITOURINARY: Denies any blood in urine or increased urinary frequency. SKIN: Denies pruitis. Denies rash. PHYSICAL EXAM: VITAL SIGNS: Reviewed GENERAL: Well-developed in no acute distress. HEENT: No sclera icterus. Extraocular movements grossly intact. Moist buccal mucosa. Head is atraumatic, normocephalic. No nasal drainage. ABDOMEN: Soft. Distended. Tenderness with palpation across the mid abdomen in the left lower quadrant. Patient had a spasm of pain during the exam and the abdomen tightened across the mid lower abdomen, with tightness of the abdomen moving across from right to left NEUROLOGIC: Alert and oriented. Cranial nerves II through XII grossly intact. LABORATORY DATA: WBC 10.04 Hgb 12.5 platelets 244 Sodium 144 potassium 4.2 creatinine 1.44 Lactic acid 1.1 LFTs normal IMAGING: CT scan abdomen pelvis mildly dilated transverse colon with focal transition point involving the left descending colon with some short segment circumferential wall thickening surrounding fat stranding with tiny adjacent lymph nodes. There are diverticula in this region. Findings may represent colitis versus diverticulitis with underlying neoplasm not excluded. Findings could represent low-grade partial large bowel obstruction versus colonic ileus. Additionally there is small bowel feces sign without dilated small bowel. Recommend further evaluation with colonoscopy if not recently performed. Distal abdominal arctic aneurysm 4.4 cm. Nonobstructive left renal calculus ASSESSMENT: 1. Abdominal pain 2. Possible partial bowel obstruction. CT scan reporting mildly dilated transverse colon with focal transition point involving the left descending colon with short segment of circumferential wall thickening surrounding fat stranding and tiny adjacent lymph nodes. Findings may represent colitis versus diverticulitis with underlying neoplasm not excluded PLAN: - No surgical intervention planned - Keep patient n.p.o. at this time - Patient will eventually need colonoscopy - Encourage patient to increase activity level - Continue IV fluids - Continue pain management Physician Receiving And Processing Supervisor note has been reviewed by physician. Signing provider agrees with the documented findings, assessment, and plan of care. Past Medical History Past Medical History: Dementia, Hyperlipidemia, Hypertension Additional Past Medical History / Comment(s): abdominal aortic aneurysm History of Any Multi-Drug Resistant Organisms: None Reported Past Surgical History: Heart Catheterization With Stent, Tonsillectomy Past Anesthesia/Blood Transfusion Reactions: Unable to Obtain Date of Last Stent Placement:: Unknown Past Psychological History: No Psychological Hx Reported Smoking Status: Former smoker Past Alcohol Use History: None Reported Past Drug Use History: None Reported Medications and Allergies Home Medications Medication Instructions Recorded Confirmed Type Aspirin 325 mg PO HS@199901/19/24 02/21/25 History Divalproex ER [Depakote ER] 250 mg PO HS@199901/19/24 02/21/25 History amLODIPine [Norvasc] 2.5 mg PO DAILY@79901/19/24 02/21/25 History busPIRone HCL 15 mg PO BID@01/19/24 02/21/25 History Losartan Potassium 100 mg PO HS@199904/13/24 02/21/25 History traZODone HCL [Desyrel] 50 mg PO HS@199904/13/24 02/21/25 History Atorvastatin [Lipitor] 10 mg PO HS@199902/21/25 02/21/25 History Tamsulosin [Flomax] 0.4 mg PO DAILY@79902/21/25 02/21/25 History hydroCHLOROthiazide [Hydrodiuril] 25 mg PO DAILY@79902/21/25 02/21/25 History Allergies Allergy/AdvReac Type Severity Reaction Status Date / Time No Known Allergies Allergy Verified 02/21/25 09:15 Surgical - Exam Vital Signs Temp Pulse Resp BP Pulse Ox 98.7 F 66 18 169/78 96 02/20/25 21:43 02/20/25 21:43 02/20/25 21:43 02/20/25 21:43 02/20/25 21:43 Results - Labs 02/20/25 22:23 02/20/25 22:23 Abnormal Lab Results - Last 24 Hours (Table) 02/20/25 02/20/25 02/20/25 Range/Units 22:23 22:23 23:43 WBC 10.04 H (4.50-10.00) 10*3/uL RBC 4.03 L (4.40-5.60) 10*6/uL Hgb 12.5 L (13.0-17.0) g/dL Hct 37.7 L (39.6-50.0) % Neutrophils # 8.33 H (1.80-7.70) 10*3/uL BUN 33 H (9-20) mg/dL Creatinine 1.44 H (0.66-1.25) mg/dL Glucose 149 H (74-99) mg/dL POC Glucose (mg/dL) (70-110) mg/dL Urine Protein 1+ H (Negative) Urine Blood Trace H (Negative) Ur Leukocyte Esterase Large H (Negative) Urine WBC 129 H (0-5) /hpf Urine WBC Clumps Rare H (None) /hpf Triple Phos Crystals Rare H (None) /hpf Urine Bacteria Occasional H (None) /hpf Urine Mucus Rare H (None) /hpf 02/21/25 Range/Units 05:20 WBC (4.50-10.00) 10*3/uL RBC (4.40-5.60) 10*6/uL Hgb (13.0-17.0) g/dL Hct (39.6-50.0) % Neutrophils # (1.80-7.70) 10*3/uL BUN (9-20) mg/dL Creatinine (0.66-1.25) mg/dL Glucose (74-99) mg/dL POC Glucose (mg/dL) 137 H (70-110) mg/dL Urine Protein (Negative) Urine Blood (Negative) Ur Leukocyte Esterase (Negative) Urine WBC (0-5) /hpf Urine WBC Clumps (None) /hpf Triple Phos Crystals (None) /hpf Urine Bacteria (None) /hpf Urine Mucus (None) /hpf Diabetes panel 02/20/25 Range/Units 22:23 Sodium 142 (137-145) mmol/L Potassium 4.2 (3.5-5.1) mmol/L Chloride 104 (98-107) mmol/L Carbon Dioxide 28 (22-30) mmol/L BUN 33 H (9-20) mg/dL Creatinine 1.44 H (0.66-1.25) mg/dL Glucose 149 H (74-99) mg/dL Calcium 9.5 (8.4-10.2) mg/dL AST 19 (17-59) U/L ALT 15 (4-49) U/L Alkaline Phosphatase 85 (38-126) U/L Total Protein 7.9 (6.3-8.2) g/dL Albumin 4.4 (3.5-5.0) g/dL Calcium panel 02/20/25 Range/Units 22:23 Calcium 9.5 (8.4-10.2) mg/dL Albumin 4.4 (3.5-5.0) g/dL Pituitary panel 02/20/25 Range/Units 22:23 Sodium 142 (137-145) mmol/L Potassium 4.2 (3.5-5.1) mmol/L Chloride 104 (98-107) mmol/L Carbon Dioxide 28 (22-30) mmol/L BUN 33 H (9-20) mg/dL Creatinine 1.44 H (0.66-1.25) mg/dL Glucose 149 H (74-99) mg/dL Calcium 9.5 (8.4-10.2) mg/dL Adrenal panel 02/20/25 Range/Units 22:23 Sodium 142 (137-145) mmol/L Potassium 4.2 (3.5-5.1) mmol/L Chloride 104 (98-107) mmol/L Carbon Dioxide 28 (22-30) mmol/L BUN 33 H (9-20) mg/dL Creatinine 1.44 H (0.66-1.25) mg/dL Glucose 149 H (74-99) mg/dL Calcium 9.5 (8.4-10.2) mg/dL Total Bilirubin 0.6 (0.2-1.3) mg/dL AST 19 (17-59) U/L ALT 15 (4-49) U/L Alkaline Phosphatase 85 (38-126) U/L Total Protein 7.9 (6.3-8.2) g/dL Albumin 4.4 (3.5-5.0) g/dL
--- NOTE | 2025-02-21 15:05 | P.HPIM ---
History of Present Illness H&P Date: 02/21/25 Chief Complaint: Abdominal distention 79-year-old male- patient, follows with visiting physician Dr. Cortés. Chronic stable medical condition include dementia, hypertension, hyperlipidemia. patient lives at [facility]. Does use a walker. Patient presents with lower abdominal discomfort feeling of gas. Diet. Last bowel movement was yesterday. Normally has a bowel movement every day. Also nausea vomiting today. [place] bloated in the abdomen. [address] scan of the abdomen showed dilated transverse colon with a focal transition point. Involving the left descending colon. With some short segment of circumferential wall thickening. Patient is NPO. Review of systems: GEN.: Tired EYES: None HEENT: None NECK: None RESPIRATORY: None CARDIOVASCULAR: None GASTROINTESTINAL: As above GENITOURINARY: None MUSCULOSKELETAL: Some joint pains LYMPHATICS: None HEMATOLOGICAL: None PSYCHIATRY: [Forgetful NEUROLOGICAL: Uses a walker Social history: Lives at [facility]. Uses a walker. Legal guardian Liset Per social work. On examination: VITAL SIGNS: 98.1, 78, 16, 150 x 65, 93% room air GENERAL APPEARANCE: BMI 32.1, reclining bed awake slightly uncomfortable HEENT: Normal external appearance of nose and ear. Oral cavity normal EYES: Pupils equal. Conjunctiva normal. NECK: JVD not raised. Mass not palpable. RESPIRATORY: Respiratory effort normal. Lungs decreased breath sounds CARDIOVASCULAR: First and second sounds normal. No edema. ABDOMEN: Soft. Distended. Tympanitic bowel sounds. Liver and spleen not palpable. No tenderness. No mass palpable. PSYCHIATRY: Able to answer simple questions. Mood affect normal. MUSCULOSKELETAL:No Clubbing/cyanosis;muscles-grossly intact. OA NEUROLOGICAL: Cranial nerves grossly intact; no facial asymmetry, power and sensation grossly intact. LYMPHATICS: No lymph nodes palpable in the axilla and neck INVESTIGATIONS, reviewed in the clinical context: February 20, 2025: White count 10.0 hemoglobin 12.5 platelets 244 sodium 142 potassium 4.2 BUN 33 creatinine 1.44 UA: Protein 1+. Ketone trace. Leukoesterase large. WBC 129 EKG tracing personally reviewed by me-normal sinus rhythm. Rate 74. CT abdomen pelvis: Mildly dilated transverse colon with focal transition point involving the left descending colon with some short segment circumferential wall thickening and surrounding fat stranding with tiny adjacent lymph nodes. Diverticula in this region. Distal abdominal aortic aneurysm 4.4 cm. Punctate nonobstructive left renal calculus. Assessment plan: - Acute partial bowel obstruction involving the left descending colon with some short segment circumferential wall thickening and surrounding fat stranding. Consultation to GI/general surgery. NPO. -Colonic diverticulosis. Doubt diverticulitis. No tenderness. No fever. -Essential hypertension, Amlodipine. Losartan - depression, Trazodone. BuSpar. -Hyperlipidemia, Lipitor 10 mg nightly -Chronic gait dysfunction, does use a walker at baseline -COPD will continue DuoNeb treatments, encouraged incentive spirometer use supplemental oxygen as needed, currently room air - Moderate cognitive impairment from late onset exam is dementia - Abdominal aortic aneurysm 4.4 cm - Punctate nonobstructive left renal calculi, asymptomatic -No code - Legal guardianLiset Past Medical History Past Medical History: Dementia, Hyperlipidemia, Hypertension Additional Past Medical History / Comment(s): abdominal aortic aneurysm History of Any Multi-Drug Resistant Organisms: None Reported Past Surgical History: Heart Catheterization With Stent, Tonsillectomy Past Anesthesia/Blood Transfusion Reactions: Unable to Obtain Date of Last Stent Placement:: Unknown Past Psychological History: No Psychological Hx Reported Smoking Status: Former smoker Past Alcohol Use History: None Reported Past Drug Use History: None Reported Medications and Allergies Home Medications Medication Instructions Recorded Confirmed Type Aspirin 325 mg PO HS@199901/19/24 02/21/25 History Divalproex ER [Depakote ER] 250 mg PO HS@199901/19/24 02/21/25 History amLODIPine [Norvasc] 2.5 mg PO DAILY@79901/19/24 02/21/25 History busPIRone HCL 15 mg PO BID@01/19/24 02/21/25 History Losartan Potassium 100 mg PO HS@199904/13/24 02/21/25 History traZODone HCL [Desyrel] 50 mg PO HS@199904/13/24 02/21/25 History Atorvastatin [Lipitor] 10 mg PO HS@199902/21/25 02/21/25 History Tamsulosin [Flomax] 0.4 mg PO DAILY@79902/21/25 02/21/25 History hydroCHLOROthiazide [Hydrodiuril] 25 mg PO DAILY@79902/21/25 02/21/25 History Allergies Allergy/AdvReac Type Severity Reaction Status Date / Time No Known Allergies Allergy Verified 02/21/25 09:15 Physical Exam Vitals: Vital Signs Temp Pulse Pulse Pulse Resp BP BP 02/21/25 07:45 98.9 F 72 18 152/75 02/21/25 02:37 16 02/21/25 02:00 98.1 F 78 16 150/65 02/21/25 01:42 86 18 145/78 02/21/25 00:00 81 18 158/74 02/20/25 21:43 98.7 F 66 18 169/78 Pulse Ox 02/21/25 07:45 90 L 02/21/25 02:37 02/21/25 02:00 93 L 02/21/25 01:42 95 02/21/25 00:00 95 02/20/25 21:43 96 Intake and Output 02/20/25 02/21/25 02/21/25 22:59 06:59 14:59 Intake Total 375 Balance 375 Intake: Intake, IV Titration 375 Amount Sodium Chloride 0.9% 1, 375 000 ml @ 75 mls/hr IV . [id number] [facility] Rx#:[id number] Other: Voiding Method Diaper Toilet Urinal Weight 104.326 kg 104.326 kg Results CBC & Chem 7: 02/20/25 22:23 02/20/25 22:23 Labs: Abnormal Lab Results - Last 24 Hours (Table) 02/20/25 02/20/25 02/20/25 Range/Units 22:23 22:23 23:43 WBC 10.04 H (4.50-10.00) 10*3/uL RBC 4.03 L (4.40-5.60) 10*6/uL Hgb 12.5 L (13.0-17.0) g/dL Hct 37.7 L (39.6-50.0) % Neutrophils # 8.33 H (1.80-7.70) 10*3/uL BUN 33 H (9-20) mg/dL Creatinine 1.44 H (0.66-1.25) mg/dL Glucose 149 H (74-99) mg/dL POC Glucose (mg/dL) (70-110) mg/dL Urine Protein 1+ H (Negative) Urine Blood Trace H (Negative) Ur Leukocyte Esterase Large H (Negative) Urine WBC 129 H (0-5) /hpf Urine WBC Clumps Rare H (None) /hpf Triple Phos Crystals Rare H (None) /hpf Urine Bacteria Occasional H (None) /hpf Urine Mucus Rare H (None) /hpf 02/21/25 Range/Units 05:20 WBC (4.50-10.00) 10*3/uL RBC (4.40-5.60) 10*6/uL Hgb (13.0-17.0) g/dL Hct (39.6-50.0) % Neutrophils # (1.80-7.70) 10*3/uL BUN (9-20) mg/dL Creatinine (0.66-1.25) mg/dL Glucose (74-99) mg/dL POC Glucose (mg/dL) 137 H (70-110) mg/dL Urine Protein (Negative) Urine Blood (Negative) Ur Leukocyte Esterase (Negative) Urine WBC (0-5) /hpf Urine WBC Clumps (None) /hpf Triple Phos Crystals (None) /hpf Urine Bacteria (None) /hpf Urine Mucus (None) /hpf
[2025-02-21] MEDS: PIPERACILLIN-TAZOBACTAM 3.375 GM in SODIUM CHLORIDE 0.9% 100 ML IVPB SCH (17:34)
[2025-02-21] MEDS: PEG 3350 (236 GM/BTL) + LYTES 4,000 ML BOTTLE PO ONE (17:48)
[2025-02-21] MEDS ORDERED: amLODIPine 5 MG TAB PO SCH (21:00)
[2025-02-21] MEDS ORDERED: traZODone HCL 50 MG TAB PO SCH (21:00)
[2025-02-21] MEDS ORDERED: ATORVASTATIN 20 MG TAB PO SCH (21:00)
[2025-02-21] MEDS: traZODone HCL 50 MG TAB PO SCH (21:04)
[2025-02-21] MEDS: DIVALPROEX ER 250 MG TAB.ER.24H PO SCH (21:04)
[2025-02-21] MEDS: ATORVASTATIN 10 MG TAB PO SCH (21:05)
[2025-02-21] MEDS: LACTATED RINGERS 1,000 ML IV SCH (23:52)
[2025-02-22 08:51] LABS: Blood Urea Nitrogen 28.2 mg/dL (9.0-27.0); Calcium 8.9 mg/dL (8.7-10.3); Carbon Dioxide 30.2 mmol/L (21.6-31.8); Chloride 104 mmol/L (96-109); Glucose 105 mg/dL (70-110); Potassium 3.9 mmol/L (3.5-5.5); Sodium 140 mmol/L (135-145)
[2025-02-22 09:03] LABS: Basophils # (A) 0.08 X 10*3/uL (0.00-0.10); Basophils % (A) 0.9 %; Eosinophils # (A) 0.29 X 10*3/uL (0.04-0.35); Eosinophils % (A) 3.2 %; HGB 10.9 g/dL (13.0-17.0); Lymphocytes # (A) 1.91 X 10*3/uL (0.90-5.00); Lymphocytes % (A) 20.9 %; MCH 30.2 pg (27.0-32.0); MCHC 31.1 g/dL (32.0-37.0); Monocytes % (A) 7.7 %; NRBC Per 100 WBC 0 X 10*3/uL (0.00-0.01); Neutrophils # (A) 6.13 X 10*3/uL (1.80-7.70); Platelet Count 218 X 10*3/uL (140-440); RBC 3.61 X 10*6/uL (4.40-5.60); RDW 12.4 % (11.5-14.5); WBC 9.14 X 10*3/uL (4.50-10.00)
[2025-02-22] MEDS: amLODIPine 2.5 MG TAB PO SCH (10:18)
[2025-02-22 11:59] LABS: INR 0.99 sec (0.93-1.11); Prothrombin Time 11.3 sec (9.9-11.9)
[2025-02-22] MEDS: PIPERACILLIN-TAZOBACTAM 3.375 GM in SODIUM CHLORIDE 0.9% 100 ML IVPB SCH (12:59)
--- NOTE | 2025-02-22 15:14 | P.PN ---
Subjective Progress Note Date: 02/22/25 SURGICAL PROGRESS NOTE CHIEF COMPLAINT: Abdominal pain HISTORY OF PRESENT ILLNESS: Patient reports abdominal pain has resolved. He did have a bowel movement this afternoon. He is undergoing the [facility] bowel prep for colonoscopy with GI service. Afebrile. WBC 9.14 Hgb 10.9 PHYSICAL EXAM: VITAL SIGNS: Reviewed. GENERAL: Well-developed in no acute distress. HEENT: No sclera icterus. Extraocular movements grossly intact. Moist buccal mucosa. Head is atraumatic, normocephalic. ABDOMEN: Soft. Nondistended. Nontender. NEUROLOGIC: Alert and oriented. Cranial nerves II through XII grossly intact. ASSESSMENT: 1. Abdominal pain improved 2. Possible partial bowel obstruction. CT scan reporting mildly dilated transverse colon with focal transition point involving the left descending colon with short segment of circumferential wall thickening surrounding fat stranding and tiny adjacent lymph nodes. Findings may represent colitis versus diverticulitis with underlying neoplasm not excluded PLAN: - Colonoscopy per GI service - Continue antibiotics empirically for possible diverticulitis versus colitis - No surgical intervention planned Physician Diecast Machine Operator note has been reviewed by physician. Signing provider agrees with the documented findings, assessment, and plan of care. Attestation Patient seen and examined at bedside on 02/22/2025. Presented with chief complaint of abdominal pain. Found to have concern for partial large bowel obstruction. Patient undergoing bowel prep for colonoscopy with GI service. Further recommendations after scope. Akash Patel, Objective - Vital Signs Vital signs: Vital Signs Temp 98.1 F 02/22/25 13:50 Pulse 56 L 02/22/25 13:50 Resp 18 02/22/25 13:50 BP 145/71 02/22/25 13:50 Pulse Ox 98 02/22/25 13:50 FiO2 Intake & Output 02/21/25 02/22/25 02/22/25 18:59 06:59 18:59 Other: Voiding Method Urinal Urinal Bedside Commode Diaper Diaper Urinal # Voids 3 3 # Bowel Movements 0 - Labs CBC & Chem 7: 02/23/25 08:34 02/23/25 08:34 Labs: Abnormal Lab Results - Last 24 Hours (Table) 02/22/25 02/22/25 Range/Units 04:45 04:45 RBC 3.61 L (4.40-5.60) X 10*6/uL Hgb 10.9 L (13.0-17.0) g/dL Hct 35.0 L (39.6-50.0) % MCHC 31.1 L (32.0-37.0) g/dL BUN 28.2 H (9.0-27.0) mg/dL Est GFR (CKD-EPI) 46 L (>=60)
[2025-02-22] MEDS ORDERED: PROPOFOL 10 MG/ML 20 ML VIAL IV ONE (16:28)
[2025-02-22] MEDS: IV FLUID CONTINUATION 1,000 ML IV ONE (16:34)
--- NOTE | 2025-02-22 16:49 | P.PCN ---
Date of Procedure: 02/22/25 Procedure(s) Performed: BRIEF HISTORY: Patient is a 79-year-old pleasant white male admitted to hospital with severe lower abdominal pain of [address] of the abdomen showed dilated transverse colon with circumferential thickening of the descending colon suspicious for mass and hence is scheduled for a colonoscopy to evaluate for the PROCEDURE PERFORMED: Colonoscopy after distal transverse colon with biopsy and tattooing with Opal ink. PREOPERATIVE DIAGNOSIS: Abdominal pain and abnormal CAT scan. IV sedation per Anesthesia. PROCEDURE: After informed consent was obtained, the patient, was brought into the endoscopy unit. IV sedation was administered by Anesthesia under continuous monitoring. Digital rectal examination was normal. Initially the Olympus CF-160 flexible video colonoscope was then inserted in the rectum, gradually advanced into the distal transverse colon where there was a circumferential ulcerated apple core lesion identified with significant luminal narrowing in the scope could not be advanced to this area. At this time the scope was removed and repeated the colonoscopy was introduced into the rectum and gradually advanced to the transverse colon but despite multiple attempts I was not able to advance the scope through the mass proximally. At this time multiple biopsies were done from the ulcerated mass followed by tattooing with Opal ink. Mucosa of the descending colon, sigmoid colon, and rectum appeared normal. Retroflexion was performed in the rectum and no lesions were seen. The patient tolerated the procedure well. IMPRESSION: Distal transverse colon circumferential ulcerated mass with significant luminal narrowing endoscope could not be passed through the mass, status post multiple biopsies followed by tattooing with Opal ink Left-sided diverticulosis RECOMMENDATIONS: Findings of this examination were discussed with the patient as well as his family. Will notify surgical team about the findings. Keep him on clear liquids for now until evaluated by surgery for possible surgical resection tomorrow.
--- NOTE | 2025-02-22 19:37 | P.PN ---
Progress Note - Text Progress Note Date: 02/22/25 Chief Complaint: Abdominal distention 79-year-old male- patient, follows with visiting physician Dr. Cortés. Chronic stable medical condition include dementia, hypertension, hyperlipidemia. patient lives at [facility]. Does use a walker. Patient presents with lower abdominal discomfort feeling of gas. Diet. Last bowel movement was yesterday. Normally has a bowel movement every day. Also nausea vomiting today. [place] bloated in the abdomen. [address] scan of the abdomen showed dilated transverse colon with a focal transition point. Involving the left descending colon. With some short segment of circumferential wall thickening. Patient is NPO. February 22: I saw the patient this morning. Was pending colonoscopy. Later underwent the same by Dr. Domitila Staley. Distal transverse colon circumferential ulcerated mass with significant luminal narrowing. Scope could not be passed through. Multiple biopsies were done. Dr. Staley discussed this with the patient and the family. Patient kept on clear liquids. Surgery on the case. Patient has some left abdominal discomfort. Active Medications Acetaminophen (Acetaminophen Tab 325 Mg Tab) 650 mg PO Q6HR PRN PRN Reason: Mild Pain or Fever > 100.5 Albuterol/Ipratropium (Ipratropium-Albuterol 3 Ml Neb) 3 ml INHALATION RT-QID PRN PRN Reason: Shortness Of Breath Or Wheezing Amlodipine Besylate (Amlodipine 2.5 Mg Tab) 2.5 mg PO DAILY REPLACED BY [facility] Last Admin: 02/22/25 10:18 Dose: 2.5 mg Aspirin (Aspirin 325 Mg Tab) 325 mg PO [facility] Atorvastatin Calcium (Atorvastatin 10 Mg Tab) 10 mg PO [facility] Last Admin: 02/21/25 21:05 Dose: 10 mg Buspirone HCl (Buspirone Hcl 5 Mg Tab) 15 mg PO BID REPLACED BY [facility] Last Admin: 02/22/25 10:18 Dose: 15 mg Cyanocobalamin (Cyanocobalamin 1,000 Mcg/Ml 1 Ml Vial) 1,000 mcg SQ QMONTHLY REPLACED BY [facility] Last Admin: 02/21/25 09:26 Dose: 1,000 mcg Divalproex Sodium (Divalproex Er 250 Mg Tab.Er.24h) 250 mg PO [facility] Last Admin: 02/21/25 21:04 Dose: 250 mg Lactated Ringer's (Lactated Ringers) 1,000 mls @ 100 mls/hr IV .Q10H REPLACED BY [facility] Last Admin: 02/22/25 13:00 Dose: 100 mls/hr Piperacillin Sod/Tazobactam (Sod 3.375 gm/ Sodium Chloride) 100 mls @ 25 mls/hr IVPB Q8H REPLACED BY [facility]; Protocol Last Admin: 02/22/25 12:59 Dose: 25 mls/hr Losartan Potassium (Losartan 50 Mg Tab) 100 mg PO [facility] Naloxone HCl (Naloxone 0.4 Mg/Ml 1 Ml Vial) 0.2 mg IV Q2M PRN PRN Reason: Opioid Reversal Ondansetron HCl (Ondansetron 4 Mg/2 Ml Vial) 4 mg IVP Q8HR PRN PRN Reason: Nausea And Vomiting Last Admin: 02/21/25 06:43 Dose: 4 mg Tamsulosin HCl (Tamsulosin 0.4 Mg Cap.Er.24h) 0.4 mg PO PC-BRKFST REPLACED BY [facility] Last Admin: 02/22/25 10:18 Dose: 0.4 mg Trazodone HCl (Trazodone Hcl 50 Mg Tab) 50 mg PO [facility] Last Admin: 02/21/25 21:04 Dose: 50 mg Social history: Lives at [facility] skilled [facility]. Uses a walker. Legal guardian Liset Per social work. On examination: VITAL SIGNS: 98.4, 58, 16, 157 x 70, 98% room air GENERAL APPEARANCE: BMI 32.1, reclining bed awake slightly uncomfortable HEENT: Normal external appearance of nose and ear. Oral cavity normal EYES: Pupils equal. Conjunctiva normal. NECK: JVD not raised. Mass not palpable. RESPIRATORY: Respiratory effort normal. Lungs decreased breath sounds CARDIOVASCULAR: First and second sounds normal. No edema. ABDOMEN: Soft. Distended. Tympanitic bowel sounds. Liver and spleen not palpable. No tenderness. No mass palpable. PSYCHIATRY: Able to answer simple questions. Mood affect normal. MUSCULOSKELETAL:No Clubbing/cyanosis;muscles-grossly intact. OA INVESTIGATIONS, reviewed in the clinical context: February 22: White count 9.1 hemoglobin 10.9 platelets 218 potassium 3.9 creatinine 1.5 February 20, 2025: White count 10.0 hemoglobin 12.5 platelets 244 sodium 142 potassium 4.2 BUN 33 creatinine 1.44 UA: Protein 1+. Ketone trace. Leukoesterase large. WBC 129 EKG tracing personally reviewed by me-normal sinus rhythm. Rate 74. CT abdomen pelvis: Mildly dilated transverse colon with focal transition point involving the left descending colon with some short segment circumferential wall thickening and surrounding fat stranding with tiny adjacent lymph nodes. Diverticula in this region. Distal abdominal aortic aneurysm 4.4 cm. Punctate nonobstructive left renal calculus. Assessment plan: - Acute partial bowel obstruction involving the left descending colon with some short segment circumferential wall thickening and surrounding fat stranding. Being followed by GI/general surgery. NPO. -Distal transverse colon circumferential ulcerated mass with significant luminal narrowing endoscope could not be passed through the mass, status post multiple biopsies followed by tattooing with Opal ink: New diagnosis Per colonoscopy today by Dr. Domitila Staley -Colonic diverticulosis. Doubt diverticulitis. -Essential hypertension, Amlodipine. Losartan - depression, Trazodone. BuSpar. 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 Awaiting surgical input Past Medical History Past Medical History: Dementia, Hyperlipidemia, Hypertension Additional Past Medical History / Comment(s): abdominal aortic aneurysm History of Any Multi-Drug Resistant Organisms: None Reported Past Surgical History: Heart Catheterization With Stent, Tonsillectomy Past Anesthesia/Blood Transfusion Reactions: Unable to Obtain Date of Last Stent Placement:: Unknown Past Psychological History: No Psychological Hx Reported Smoking Status: Former smoker Past Alcohol Use History: None Reported Past Drug Use History: None Reported
[2025-02-22] MEDS: ASPIRIN 325 MG TAB PO SCH (20:46)
[2025-02-22] MEDS: LOSARTAN 50 MG TAB PO SCH (20:46)
[2025-02-23 09:26] LABS: HCT 31.2 % (39.6-50.0); HGB 10.3 g/dL (13.0-17.0); MCH 30.9 pg (27.0-32.0); MCV 93.7 fL (80.0-97.0); Mean Platelet Volume 10.8 fL (9.5-12.2); Platelet Count 198 10*3/uL (140-440); RBC 3.33 10*6/uL (4.40-5.60); RDW 12.1 % (11.5-14.5); WBC 8.45 10*3/uL (4.50-10.00)
[2025-02-23 09:38] LABS: African American GFR (CKD) 50 (>60 ml/min/1.73 sqM); Anion Gap 5 mmol/L; Blood Urea Nitrogen 26 mg/dL (9-20); Calcium 8.8 mg/dL (8.4-10.2); Carbon Dioxide 29 mmol/L (22-30); Chloride 103 mmol/L (98-107); Glucose 95 mg/dL (74-99); Non-African American GFR(CKD) 43 (>60 ml/min/1.73 sqM); Potassium 3.8 mmol/L (3.5-5.1); Sodium 137 mmol/L (137-145)
[2025-02-23] MEDS: IV FLUID CONTINUATION 1,000 ML IV ONE ×2 (14:05→16:00)
--- NOTE | 2025-02-23 14:25 | P.PN ---
Subjective Progress Note Date: 02/23/25 Principal diagnosis: Abdominal pain, colon mass This a pleasant 79-year-old male with a past medical history of hyperlipidemia, hypertension, and dementia who had presented to the emergency department with complaints of abdominal pain that started yesterday afternoon around 4 PM. He had no associated nausea or vomiting. Had a reported bowel movement yesterday prior to coming in to the hospital. CT of the abdomen pelvis concerning for possible obstruction. General surgery and gastroenterology consulted. Patient currently denies any abdominal pain nausea or vomiting. States he is passed a little gas but no bowel movement today. Reports last colonoscopy about 8 years ago with no abnormal findings. No history of colitis. No history of abdominal surgeries or previous bowel obstructions. CT of the abdomen pelvis that reported mildly dilated transverse colon with f ocal transition point involving left descending colon with some short segment circumferential wall thickening and surrounding fat stranding with adjacent lymph nodes. Diverticula in the region that may represent colitis versus diverticulitis with underlying neoplasm not excluded. Findings could represent low-grade partial large bowel obstruction versus colonic ileus. Additional small bowel feces without dilated small bowel. Recommend further evaluation with colonoscopy if not recently performed. Distal abdominal aortic aneurysm measuring up to 4.4 cm. Punctate nonobstructive left renal calculus. February 23, 2025 Patient seen and examined today as a follow-up. Patient is pleasantly confused. Yesterday he underwent colonoscopy however he did not recall undergoing his colonoscopy. distal transverse colon circumferential ulcerated mass with significant luminal narrowing found on colonoscopy. Multiple biopsies and tattooing done. Left-sided diverticulosis. Findings were discussed with Dr. Patel from general surgery. Patient is tentatively scheduled for surgery today. He is denying any abdominal pain, nausea or vomiting. Objective - Vital Signs Vital signs: Vital Signs Temp 98.3 F 02/23/25 00:40 Pulse 56 L 02/23/25 00:40 Resp 20 02/23/25 00:40 BP 152/74 02/23/25 00:40 Pulse Ox 95 02/23/25 00:40 FiO2 Intake & Output 02/22/25 02/23/25 02/23/25 18:59 06:59 18:59 Intake Total 200 Balance 200 Intake: IV 200 Other: Voiding Method Bedside Commode Toilet # Voids 2 2 # Bowel Movements 4 - Exam General appearance: The patient is alert, oriented, appears in no acute distress. HET: Head is normocephalic and atraumatic. Conjunctiva pink. Sclera anicteric. Neck: Supple without lymphadenopathy. Abdomen: Soft, nontender, nondistended. Extremities: Normal skin color and turgor. No pedal edema Skin: No rashes, no jaundice Neurological: No focal deficits. Alert and oriented. - Labs CBC & Chem 7: 02/23/25 08:34 02/23/25 08:34 Labs: Abnormal Lab Results - Last 24 Hours (Table) 02/22/25 02/22/25 Range/Units 04:45 04:45 RBC 3.61 L (4.40-5.60) X 10*6/uL Hgb 10.9 L (13.0-17.0) g/dL Hct 35.0 L (39.6-50.0) % MCHC 31.1 L (32.0-37.0) g/dL BUN 28.2 H (9.0-27.0) mg/dL Est GFR (CKD-EPI) 46 L (>=60) Assessment and Plan (1) Abdominal pain Narrative/Plan: 79-year-old male presenting with acute onset of pain yesterday afternoon with CT evidence concerning for possible bowel obstruction with dilated transverse colon focal transition point involving left descending colon with some wall thickening and fat stranding with diverticular in the area possible colitis versus diverticulitis and neoplasm not being ruled out. Also concern for possible low- grade large bowel obstruction versus colonic ileus. Patient had bowel movement yesterday, passing gas today with no nausea or vomiting. Last colonoscopy about 8 years ago. Recommend medical management at this time and patient will need colonoscopy in near future. Current Visit: Yes Status: Acute Code(s): R10.9 - UNSPECIFIED ABDOMINAL PAIN SNOMED Code(s): 02991449 (2) Partial bowel obstruction Current Visit: Yes Status: Acute Code(s): K56.600 - PARTIAL INTESTINAL OB STRUCTION, UNSPECIFIED TO CAUSE SNOMED Code(s): 46809421964940899 (3) Mass of colon Narrative/Plan: Colonoscopy completed with findings of distal transverse colon circumferential ulcerated mass with significant luminal narrowing the endoscope could not pass through. General surgery on consultation. Patient is scheduled for exploratory laparotomy, left hemicolectomy, possible ostomy creation. Current Visit: Yes Status: Acute Code(s): K63.89 - OTHER SPECIFIED DISEASES OF INTESTINE SNOMED Code(s): 551238801 Plan: 1. Continue symptomatic and supportive care 2. Keep n.p.o. for surgery 3. Continue with recommendations from general surgery 4. No further workup from gastroenterology Thank you for this consultation, we will sign off at this time. Dr. Domitila Staley I agree with the dictator's note, documented as a scribe by Peri Chery.
[2025-02-23] MEDS: MIDAZOLAM 2 MG/2 ML VIAL IV STA (14:26)
--- NOTE | 2025-02-23 14:32 | P.PN ---
Progress Note - Text Progress Note Date: 02/23/25 Patient did undergo colonoscopy yesterday with finding of distal transverse colon mass that is mostly obstructing. Secondary to this, discussion was had with patient's legal guardians this morning with recommendation for surgery with bowel resection. Possibility of ostomy is also given. Risks of , cardiac event, pulmonary event, bowel leak were discussed. Understanding this, the decision has been made for surgical intervention. He will be converted to full code for the procedure and converted back to no CODE STATUS after surgery.
--- NOTE | 2025-02-23 14:52 | P.ANPRN ---
Procedure Note - Anesthesia - Invasive Line Left Arterial Line Time Out Performed: Yes Date of Procedure: 02/23/25 Time of Procedure: 14:00 Location of Patient: PreOp Preparation: Sterile Prep Arterial Line Location: Radial Ultrasound Used: Yes Purpose - Visualization and Identification of Vasculature: Yes Image Stored and Saved: Yes Narrative: Invasive line placement per sterile protocol utilized.
--- NOTE | 2025-02-23 14:53 | P.ANPRN ---
Procedure Note - Anesthesia - Invasive Line Right Central Line Time Out Performed: Yes Date of Procedure: 02/23/25 Time of Procedure: 14:10 Location of Patient: PreOp Preparation: Sterile Prep Central Line Location: Internal Jugular Ultrasound Used: Yes Purpose - Visualization and Identification of Vasculature: Yes Image Stored and Saved: Yes Narrative: Invasive line placement per sterile protocol utilized.
[2025-02-23] MEDS ORDERED: HYDROmorphone (PF) 1 MG/ML ONE (14:58)
[2025-02-23] MEDS ORDERED: NEOSTIGMINE 1 MG/ML 10 ML VIAL ONE (14:58)
[2025-02-23] MEDS ORDERED: ROCURONIUM 10 MG/ML (5 ML VIAL) IV ONE (14:58)
[2025-02-23] MEDS ORDERED: PHENYLEPHRINE-0.9% NACL SYG 1,000 MCG/10 ML SYRINGE ONE (14:58)
[2025-02-23] MEDS ORDERED: PROPOFOL 10 MG/ML 20 ML VIAL IV ONE (14:58)
[2025-02-23] MEDS ORDERED: ePHEDrine 50 MG/ML 1 ML VIAL ONE (14:58)
[2025-02-23] MEDS ORDERED: SUCCINYLCHOLINE CHLORIDE 200 MG/10 ML VIAL IV ONE (14:58)
[2025-02-23] MEDS ORDERED: LIDOCAINE 1% INJ 10MG/ML (20 ML MDV) ONE (14:58)
[2025-02-23] MEDS ORDERED: LABETALOL 5 MG/ML VIAL MDV ONE (14:58)
[2025-02-23] MEDS ORDERED: LIDOCAINE 4% LTA KIT (4 ML) TOPICAL ONE (14:58)
[2025-02-23] MEDS ORDERED: fentaNYL (PF) 50 MCG/ML 2 ML AMP ONE (14:58)
[2025-02-23] MEDS ORDERED: GLYCOPYRROLATE 0.2 MG/ML 2 ML VIAL ONE (14:58)
--- NOTE | 2025-02-23 15:21 | XR ---
EXAMINATION TYPE: XR chest 1V portable DATE OF EXAM: 02/23/2025 3:05 PM COMPARISON: Chest radiographs from 04/15/2024 CLINICAL INDICATION: Male, 79 years old with history of CENTRAL LINE PLACEMENT; [facility] TECHNIQUE: XR chest 1V portable Frontal view of the chest. FINDINGS: Lungs/Pleura: There is flattening of the diaphragm with increased lucency of the lungs. No evidence o f pneumothorax, pleural effusion or focal consolidation. Pulmonary vascularity: Unremarkable. Heart/mediastinum: Cardiomediastinal silhouette is unremarkable. Atherosclerotic calcifications are seen in the aorta. Musculoskeletal: No acute osseous pathology. Other findings: None Lines/Tubes: Right internal jugular central venous catheter with distal tip at the superior vena cava. IMPRESSION: 1. Right central venous catheter with tip in the superior vena cava. No acute cardiopulmonary disease process. 2. COPD changes. [facility], , 02/23/2025 3:18 PM
[2025-02-23] MEDS: LACTATED RINGERS 1,000 ML IV ONE (16:07)
--- NOTE | 2025-02-23 18:22 | P.PN ---
Progress Note - Text Progress Note Date: 02/23/25 Chief Complaint: Abdominal distention 79-year-old male- patient, follows with visiting physician Dr. Cortés. Chronic stable medical condition include dementia, hypertension, hyperlipidemia. patient lives at [facility]. Does use a walker. Patient presents with lower abdominal discomfort feeling of gas. Diet. Last bowel movement was yesterday. Normally has a bowel movement every day. Also nausea vomiting today. [place] bloated in the abdomen. [address] scan of the abdomen showed dilated transverse colon with a focal transition point. Involving the left descending colon. With some short segment of circumferential wall thickening. Patient is NPO. February 22: I saw the patient this morning. Was pending colonoscopy. Later underwent the same by Dr. Domitila Staley. Distal transverse colon circumferential ulcerated mass with significant luminal narrowing. Scope could not be passed through. Multiple biopsies were done. Dr. Staley discussed this with the patient and the family. Patient kept on clear liquids. Surgery on the case. Patient has some left abdominal discomfort. February 23: Patient seen this morning. Pending surgical intervention by Dr. Patel. NPO. IV fluids.. Until Active Medications Acetaminophen (Acetaminophen Tab 325 Mg Tab) 650 mg PO Q6HR PRN PRN Reason: Mild Pain or Fever > 100.5 Albuterol/Ipratropium (Ipratropium-Albuterol 3 Ml Neb) 3 ml INHALATION RT-QID PRN PRN Reason: Shortness Of Breath Or Wheezing Amlodipine Besylate (Amlodipine 2.5 Mg Tab) 2.5 mg PO DAILY [facility] Last Admin: 02/23/25 09:21 Dose: 2.5 mg Aspirin (Aspirin 325 Mg Tab) 325 mg PO HS [facility] Last Admin: 02/22/25 20:46 Dose: 325 mg Atorvastatin Calcium (Atorvastatin 10 Mg Tab) 10 mg PO HS [facility] Last Admin: 02/22/25 20:46 Dose: 10 mg Buspirone HCl (Buspirone Hcl 5 Mg Tab) 15 mg PO BID [facility] Last Admin: 02/23/25 09:21 Dose: 15 mg Cyanocobalamin (Cyanocobalamin 1,000 Mcg/Ml 1 Ml Vial) 1,000 mcg SQ QMONTHLY [facility] Last Admin: 02/21/25 09:26 Dose: 1,000 mcg Divalproex Sodium (Divalproex Er 250 Mg Tab.Er.24h) 250 mg PO [facility] Last Admin: 02/22/25 20:47 Dose: 250 mg Lactated Ringer's (Lactated Ringers) 1,000 mls @ 100 mls/hr IV .Q10H [facility] Last Admin: 02/23/25 14:00 Dose: 100 mls/hr Piperacillin Sod/Tazobactam (Sod 3.375 gm/ Sodium Chloride) 100 mls @ 25 mls/hr IVPB Q8H [facility]; Protocol Last Admin: 02/23/25 13:32 Dose: 25 mls/hr Losartan Potassium (Losartan 50 Mg Tab) 100 mg PO [facility] Last Admin: 02/22/25 20:46 Dose: 100 mg Naloxone HCl (Naloxone 0.4 Mg/Ml 1 Ml Vial) 0.2 mg IV Q2M PRN PRN Reason: Opioid Reversal Ondansetron HCl (Ondansetron 4 Mg/2 Ml Vial) 4 mg IVP Q8HR PRN PRN Reason: Nausea And Vomiting Last Admin: 02/21/25 06:43 Dose: 4 mg Tamsulosin HCl (Tamsulosin 0.4 Mg Cap.Er.24h) 0.4 mg PO PC-BRKFST [facility] Last Admin: 02/23/25 09:21 Dose: 0.4 mg Trazodone HCl (Trazodone Hcl 50 Mg Tab) 50 mg PO [facility] Last Admin: 02/22/25 20:46 Dose: 50 mg Social history: Lives at [facility]. Uses a walker. Legal guardian Liset Per social work. On examination: VITAL SIGNS: 97.4, 54, 16, 148 x 75, 97% room air GENERAL APPEARANCE: Comfortable, sitting the edge of the bed HEENT: Normal external appearance of nose and ear. Oral cavity normal EYES: Pupils equal. Conjunctiva normal. NECK: JVD not raised. Mass not palpable. RESPIRATORY: Respiratory effort normal. Lungs decreased breath sounds CARDIOVASCULAR: First and second sounds normal. No edema. ABDOMEN: Soft. Distended. Tympanitic bowel sounds. Liver and spleen not palpable. No tenderness. No mass palpable. PSYCHIATRY: Able to answer simple questions. Mood affect normal. MUSCULOSKELETAL:No Clubbing/cyanosis;muscles-grossly intact. OA INVESTIGATIONS, reviewed in the clinical context: February 23: White count 8.4 hemoglobin 10.3 platelets 198 potassium 3.8 Prevena 26 creatinine 1.5 February 22: White count 9.1 hemoglobin 10.9 platelets 218 potassium 3.9 creatinine 1.5 February 20, 2025: White count 10.0 hemoglobin 12.5 platelets 244 sodium 142 potassium 4.2 BUN 33 creatinine 1.44 UA: Protein 1+. Ketone trace. Leukoesterase large. WBC 129 EKG tracing personally reviewed by ok-normal sinus rhythm. Rate 74. CT abdomen pelvis: Mildly dilated transverse colon with focal transition point involving the left descending colon with some short segment circumferential wall thickening and surrounding fat stranding with tiny adjacent lymph nodes. Diverticula in this region. Distal abdominal aortic aneurysm 4.4 cm. Punctate nonobstructive left renal calculus. Assessment plan: - Acute partial bowel obstruction involving the left descending colon with some short segment circumferential wall thickening and surrounding fat stranding. Being followed by GI/general surgery. NPO. -Distal transverse colon circumferential ulcerated mass with significant luminal narrowing endoscope could not be passed through the mass, status post multiple biopsies followed by tattooing with Opal ink: New diagnosis surgical intervention by Dr Patel today: -Colonic diverticulosis. Doubt diverticulitis. -Essential hypertension, Amlodipine. Losartan - depression, Trazodone. BuSpar. 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 Pending surgery. Past Medical History Past Medical History: Dementia, Hyperlipidemia, Hypertension Additional Past Medical History / Comment(s): abdominal aortic aneurysm History of Any Multi-Drug Resistant Organisms: None Reported Past Surgical History: Heart Catheterization With Stent, Tonsillectomy Past Anesthesia/Blood Transfusion Reactions: Unable to Obtain Date of Last Stent Placement:: Unknown Past Psychological History: No Psychological Hx Reported Smoking Status: Former smoker Past Alcohol Use History: None Reported Past Drug Use History: None Reported
--- NOTE | 2025-02-23 19:24 | P.OP ---
Date of Procedure: 02/23/25 Preoperative Diagnosis: Colon mass, partially obstructing Postoperative Diagnosis: Left colon Partially obstructing colon mass Procedure(s) Performed: Exploratory laparotomy Left hemicolectomy Anesthesia: FILEMON Surgeon: Akash Patel Pathology: other (Left:) Condition: stable Disposition: floor Indications for Procedure: 79-year-old male presented to the emergency department with complaint of abdominal pain. On workup he was found to have concern for colon mass and possibility of partial large bowel obstruction. Patient did have colonoscopy with gastroenterology with finding of mostly obstructing colonic mass. Secondary to this, discussion was had with patient's legal guardians with recommendation for surgical intervention. They are agreeable to this plan. Risks of bleeding, infection, cardiac event, pulmonary event and colonic leak from anastomosis was discussed. All questions answered prior to attending the operating suite. Operative Findings: Left colonic mass, tattoo noted Description of Procedure: The patient was placed in supine position on the operating table and general endotracheal anesthesia was induced. Ivy catheter and nasogastric tube were placed. The abdomen was prepped and draped in usual sterile fashion. A vertical midline incision was made. This was deepened through the subcutaneous tissues and hemostasis was achieved with electrocautery. The linea alba was identified and incised and the peritoneal cavity entered. The abdomen was explored. A mass was palpated in the descending colon where tattoo was noted. The liver, omentum, peritoneum were inspected for evidence of metastatic disease. No metastatic disease was noted. The small bowel was inspected and retracted to the right using a moist towel and self-retaining retractor. Using electrocautery, the colon was freed from its peritoneal attachments along the line of Toldt proximally from the splenic flexure and distally to the pelvic inlet. Both ureters were identified and protected. Omentum was freed from the transverse colon and the splenic flexure was mobilized. Points of transection were selected proximally and distally. The bowel was divided with a linear cutting stapler. The peritoneum overlying the mesentery was then scored with electrocautery and the left colic artery was identified and transected using LigaSure device. The peritoneum overlying the mesentery was scored and remaining mesentery divided and ligated using LigaSure device. All associated mesentery and nash tissue was taken down with the specimen. The specimen was removed, proximal and distal ends tagged and sent to pathology. Hemostasis was checked in the operative field. The 2 ends of the bowel were checked and found to be viable with excellent blood supply. The proximal and distal segments were brought into position and found to lie comfortably next to each other without any tension. Enterotomies were created and a linear cutting stapler was inserted and fired. Hemostasis was checked on the staple line. The enterotomies were then closed with a TA blue load 60 mm stapler. The staple line was imbricated using interrupted 3-0 Vicryl Lembert sutures. The anastomosis was checked and found to be intact and widely patent. The abdominal cavity was then copiously irrigated and hemostasis was checked. Pressure applied on both sides of the colon anastamosis to evaluate for leak with no evidence of leak noted. At this point the fascia was closed with a running suture of looped PDS. The skin was closed with skin andrea. The patient tolerated the procedure and was taken postanesthesia care unit in stable condition.
[2025-02-23] MEDS: MORPHINE SULFATE 2 MG/ML SYRINGE IVP PRN (22:03)
[2025-02-24 09:32] LABS: Basophils # (A) 0.04 X 10*3/uL (0.00-0.10); Basophils % (A) 0.4 %; Eosinophils # (A) 0.02 X 10*3/uL (0.04-0.35); Eosinophils % (A) 0.2 %; HCT 32.7 % (39.6-50.0); HGB 10.6 g/dL (13.0-17.0); Lymphocytes # (A) 0.86 X 10*3/uL (0.90-5.00); MCH 30.4 pg (27.0-32.0); MCHC 32.4 g/dL (32.0-37.0); MCV 93.7 FL (80.0-97.0); Monocytes % (A) 8.3 %; NRBC Per 100 WBC 0 X 10*3/uL (0.00-0.01); Neutrophils # (A) 7.86 X 10*3/uL (1.80-7.70); Neutrophils % (A) 81.9 %; Platelet Count 196 X 10*3/uL (140-440); RBC 3.49 X 10*6/uL (4.40-5.60); RDW 12.2 % (11.5-14.5)
[2025-02-24 09:45] LABS: ALT 9 U/L (10-49); AST 14 U/L (14-35); Albumin 3.4 g/dL (3.8-4.9); Albumin/Globulin Ratio 1.21 Ratio (1.60-3.17); Alkaline Phosphatase 75 U/L (41-126); BUN/Creat Ratio 18.75 Ratio (12.00-20.00); Blood Urea Nitrogen 22.5 mg/dL (9.0-27.0); Calcium 8.6 mg/dL (8.7-10.3); Carbon Dioxide 23.4 mmol/L (21.6-31.8); Chloride 105 mmol/L (96-109); Globulin 2.8 g/dL (1.6-3.3); Glucose 135 mg/dL (70-110); Potassium 4.2 mmol/L (3.5-5.5); Sodium 139 mmol/L (135-145); Total Bilirubin 0.6 mg/dL (0.3-1.2); Total Protein 6.2 g/dL (6.2-8.2)
--- NOTE | 2025-02-24 14:42 | P.PN ---
Subjective Patient seen and evaluated at bedside. Patient doing well, pulled out ngt overnight, admits to flatus Objective - Vital Signs Vital signs: Vital Signs Temp 98.6 F 02/24/25 06:55 Pulse 68 02/24/25 08:00 Resp 17 02/24/25 08:00 BP 180/77 02/24/25 06:55 Pulse Ox 95 02/24/25 06:55 FiO2 Intake & Output 02/23/25 02/24/25 02/24/25 18:59 06:59 18:59 Intake Total 1800 Output Total 577 600 Balance 1223 -600 Weight 104.326 kg Intake: IV 1800 Output: Urine 550 600 Estimated Blood Loss 27 Other: Voiding Method Indwelling Catheter Indwelling Catheter # Voids 2 # Bowel Movements 0 - Exam gen: nad cv: rrr pul: non labored breathing abd:soft, distended, mild tenderness to palpation, surgical incision c/d/i - Labs CBC & Chem 7: 02/24/25 05:15 02/24/25 05:15 Labs: Abnormal Lab Results - Last 24 Hours (Table) 02/24/25 02/24/25 Range/Units 05:15 05:15 RBC 3.49 L (4.40-5.60) X 10*6/uL Hgb 10.6 L (13.0-17.0) g/dL Hct 32.7 L (39.6-50.0) % Neutrophils # 7.86 H (1.80-7.70) X 10*3/uL Lymphocytes # 0.86 L (0.90-5.00) X 10*3/uL Eosinophils # 0.02 L (0.04-0.35) X 10*3/uL Glucose 135 H (70-110) mg/dL Calcium 8.6 L (8.7-10.3) mg/dL ALT 9 L (10-49) U/L Albumin 3.4 L (3.8-4.9) g/dL Albumin/Globulin Ratio 1.21 L (1.60-3.17) Ratio Assessment and Plan Assessment: 79 yo male s/p left hemicolectomy -advance to clears(pt has subjective flatus but given is low output we will advance) -encourage ambulation and incentive spirometer use Time with Patient: Less than 30
--- NOTE | 2025-02-24 18:47 | P.PN ---
Progress Note - Text Progress Note Date: 02/24/25 Chief Complaint: Abdominal distention 79-year-old male- patient, follows with visiting physician Dr. Cortés. Chronic stable medical condition include dementia, hypertension, hyperlipidemia. patient lives at [facility]. Does use a walker. Patient presents with lower abdominal discomfort feeling of gas. Diet. Last bowel movement was yesterday. Normally has a bowel movement every day. Also nausea vomiting today. [place] bloated in the abdomen. [address] scan of the abdomen showed dilated transverse colon with a focal transition point. Involving the left descending colon. With some short segment of circumferential wall thickening. Patient is NPO. February 22: I saw the patient this morning. Was pending colonoscopy. Later underwent the same by Dr. Domitila Staley. Distal transverse colon circumferential ulcerated mass with significant luminal narrowing. Scope could not be passed through. Multiple biopsies were done. Dr. Staley discussed this with the patient and the family. Patient kept on clear liquids. Surgery on the case. Patient has some left abdominal discomfort. February 23: Patient seen this morning. Pending surgical intervention by Dr. Patel. NPO. IV fluids.. February 24: Yesterday patient underwent laparotomy followed by left hemicolectomy for a partially obstructing colon mass. Midline incision with OptiForm. Some looking at the lower end. Patient is n.p.o. except ice chips. Did pass some flatus. No nausea vomiting. No pain. Active Medications Acetaminophen (Acetaminophen Tab 325 Mg Tab) 650 mg PO Q6HR PRN PRN Reason: Mild Pain or Fever > 100.5 Albuterol/Ipratropium (Ipratropium-Albuterol 3 Ml Neb) 3 ml INHALATION RT-QID PRN PRN Reason: Shortness Of Breath Or Wheezing Amlodipine Besylate (Amlodipine 2.5 Mg Tab) 2.5 mg PO DAILY [facility] Last Admin: 02/24/25 08:47 Dose: 2.5 mg Aspirin (Aspirin 325 Mg Tab) 325 mg PO HS [facility] Last Admin: 02/23/25 22:04 Dose: 325 mg Atorvastatin Calcium (Atorvastatin 10 Mg Tab) 10 mg PO HS [facility] Last Admin: 02/23/25 22:04 Dose: 10 mg Buspirone HCl (Buspirone Hcl 5 Mg Tab) 15 mg PO BID [facility] Last Admin: 02/24/25 08:47 Dose: 15 mg Cyanocobalamin (Cyanocobalamin 1,000 Mcg/Ml 1 Ml Vial) 1,000 mcg SQ QMONTHLY [facility] Last Admin: 02/21/25 09:26 Dose: 1,000 mcg Divalproex Sodium (Divalproex Er 250 Mg Tab.Er.24h) 250 mg PO [facility] Last Admin: 02/24/25 01:59 Dose: Not Given Lactated Ringer's (Lactated Ringers) 1,000 mls @ 100 mls/hr IV .Q10H [facility] Last Admin: 02/24/25 05:18 Dose: Not Given Piperacillin Sod/Tazobactam (Sod 3.375 gm/ Sodium Chloride) 100 mls @ 25 mls/hr IVPB Q8H [facility]; Protocol Last Admin: 02/24/25 12:16 Dose: 25 mls/hr Losartan Potassium (Losartan 50 Mg Tab) 100 mg PO [facility] Last Admin: 02/24/25 02:00 Dose: Not Given Morphine Sulfate (Morphine Sulfate 2 Mg/Ml Syringe) 2 mg IVP Q4HR PRN PRN Reason: Pain/Discomfort Last Admin: 02/24/25 18:32 Dose: 2 mg Naloxone HCl (Naloxone 0.4 Mg/Ml 1 Ml Vial) 0.2 mg IV Q2M PRN PRN Reason: Opioid Reversal Ondansetron HCl (Ondansetron 4 Mg/2 Ml Vial) 4 mg IVP Q8HR PRN PRN Reason: Nausea And Vomiting Last Admin: 02/23/25 22:02 Dose: 4 mg Tamsulosin HCl (Tamsulosin 0.4 Mg Cap.Er.24h) 0.[address] Last Admin: 02/24/25 08:47 Dose: 0.4 mg Trazodone HCl (Trazodone Hcl 50 Mg Tab) 50 mg PO [facility] Last Admin: 02/23/25 22:04 Dose: 50 mg Social history: Lives at [facility]. Uses a walker. Legal guardian Liset Per social work. On examination: VITAL SIGNS: 98.6, 68, 17, 142/87, 95% room air GENERAL APPEARANCE: Comfortable, laying in bed HEENT: Normal external appearance of nose and ear. Oral cavity normal EYES: Pupils equal. Conjunctiva normal. NECK: JVD not raised. Mass not palpable. RESPIRATORY: Respiratory effort normal. Lungs decreased breath sounds CARDIOVASCULAR: First and second sounds normal. No edema. ABDOMEN: Soft. Mild tenderness. Midline incision with OptiForm. Some blood soaking of the distal end.. Liver and spleen not palpable. No tenderness. No mass palpable. PSYCHIATRY: Able to answer simple questions. Mood affect normal. MUSCULOSKELETAL:No Clubbing/cyanosis;muscles-grossly intact. OA INVESTIGATIONS, reviewed in the clinical context: February 24: White count 10.6 potassium 4.2 creatinine 1.2 February 23: White count 8.4 hemoglobin 10.3 platelets 198 potassium 3.8 Prevena 26 creatinine 1.5 February 22: White count 9.1 hemoglobin 10.9 platelets 218 potassium 3.9 creatinine 1.5 February 20, 2025: White count 10.0 hemoglobin 12.5 platelets 244 sodium 142 potassium 4.2 BUN 33 creatinine 1.44 UA: Protein 1+. Ketone trace. Leukoesterase large. WBC 129 EKG tracing personally reviewed by ri-normal sinus rhythm. Rate 74. CT abdomen pelvis: Mildly dilated transverse colon with focal transition point involving the left descending colon with some short segment circumferential wall thickening and surrounding fat stranding with tiny adjacent lymph nodes. Diverticula in this region. Distal abdominal aortic aneurysm 4.4 cm. Punctate nonobstructive left renal calculus. Assessment plan: - Acute partial bowel obstruction involving the left descending colon with some short segment circumferential wall thickening and surrounding fat stranding. Being followed by GI/general surgery. NPO. -Distal transverse colon circumferential ulcerated mass with significant luminal narrowing endoscope could not be passed through the mass, status post multiple biopsies followed by tattooing with Opal ink: New diagnosis Left hemicolectomy by Dr. Patel on February 23. N.p.o. except ice chips: -Colonic diverticulosis. Doubt diverticulitis. -Essential hypertension, Amlodipine. Losartan - depression, Trazodone. BuSpar. 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 except ice chips. IV fluids. Continue current medications. Past Medical History Past Medical History: Dementia, Hyperlipidemia, Hypertension Additional Past Medical History / Comment(s): abdominal aortic aneurysm History of Any Multi-Drug Resistant Organisms: None Reported Past Surgical History: Heart Catheterization With Stent, Tonsillectomy Past Anesthesia/Blood Transfusion Reactions: Unable to Obtain Date of Last Stent Placement:: Unknown Past Psychological History: No Psychological Hx Reported Smoking Status: Former smoker Past Alcohol Use History: None Reported Past Drug Use History: None Reported
[2025-02-25 09:35] LABS: ALT 9 U/L (10-49); AST 14 U/L (14-35); Albumin 3.4 g/dL (3.8-4.9); Albumin/Globulin Ratio 1.31 Ratio (1.60-3.17); Alkaline Phosphatase 66 U/L (41-126); BUN/Creat Ratio 14.15 Ratio (12.00-20.00); Blood Urea Nitrogen 18.4 mg/dL (9.0-27.0); Calcium 8.6 mg/dL (8.7-10.3); Carbon Dioxide 22.5 mmol/L (21.6-31.8); Chloride 105 mmol/L (96-109); Globulin 2.6 g/dL (1.6-3.3); Glucose 95 mg/dL (70-110); Potassium 3.8 mmol/L (3.5-5.5); Sodium 139 mmol/L (135-145); Total Bilirubin 0.8 mg/dL (0.3-1.2)
[2025-02-25 10:06] LABS: Basophils # (A) 0.06 X 10*3/uL (0.00-0.10); Basophils % (A) 0.6 %; Eosinophils # (A) 0.29 X 10*3/uL (0.04-0.35); Eosinophils % (A) 3.1 %; HCT 33.5 % (39.6-50.0); HGB 10.5 g/dL (13.0-17.0); Lymphocytes # (A) 1.43 X 10*3/uL (0.90-5.00); Lymphocytes % (A) 15.2 %; MCH 29.9 pg (27.0-32.0); MCHC 31.3 g/dL (32.0-37.0); MCV 95.4 FL (80.0-97.0); Mean Platelet Volume 10.9 FL (9.5-12.2); Monocytes # (A) 0.92 X 10*3/uL (0.20-1.00); Monocytes % (A) 9.8 %; NRBC Per 100 WBC 0 X 10*3/uL (0.00-0.01); Neutrophils # (A) 6.69 X 10*3/uL (1.80-7.70); Platelet Count 197 X 10*3/uL (140-440); RBC 3.51 X 10*6/uL (4.40-5.60); RDW 12.6 % (11.5-14.5); WBC 9.42 X 10*3/uL (4.50-10.00)
--- NOTE | 2025-02-25 11:44 | P.PN ---
Subjective Patient seen and evaluated at bedside. Patient doing well, pulled out ngt overnight, admits to flatus Objective - Vital Signs Vital signs: Vital Signs Temp 98.4 F 02/25/25 07:10 Pulse 73 02/25/25 10:47 Resp 19 02/25/25 07:50 BP 178/82 02/25/25 10:47 Pulse Ox 95 02/25/25 07:10 FiO2 Intake & Output 02/24/25 02/25/25 02/25/25 18:59 06:59 18:59 Output Total 800 600 Balance -800 -600 Output: Urine 800 600 Other: Voiding Method Indwelling Catheter Indwelling Catheter Indwelling Catheter - Exam gen: nad cv: rrr pul: non labored breathing abd:soft, distended, mild tenderness to palpation, surgical incision c/d/i - Labs CBC & Chem 7: 02/25/25 05:10 02/25/25 05:10 Labs: Abnormal Lab Results - Last 24 Hours (Table) 02/25/25 02/25/25 Range/Units 05:10 05:10 RBC 3.51 L (4.40-5.60) X 10*6/uL Hgb 10.5 L (13.0-17.0) g/dL Hct 33.5 L (39.6-50.0) % MCHC 31.3 L (32.0-37.0) g/dL Est GFR (CKD-EPI) 55 L (>=60) Calcium 8.6 L (8.7-10.3) mg/dL ALT 9 L (10-49) U/L Total Protein 6.0 L (6.2-8.2) g/dL Albumin 3.4 L (3.8-4.9) g/dL Albumin/Globulin Ratio 1.31 L (1.60-3.17) Ratio Assessment and Plan Assessment: 79 yo male s/p left hemicolectomy -continue clear liquid diet as he's only had water throughout the day -encourage ambulation and incentive spirometer use -please watch for aspiration
--- NOTE | 2025-02-25 19:11 | P.PN ---
Progress Note - Text Progress Note Date: 02/25/25 Chief Complaint: Abdominal distention 79-year-old male- patient, follows with visiting physician Dr. Cortés. Chronic stable medical condition include dementia, hypertension, hyperlipidemia. patient lives at [facility]. Does use a walker. Patient presents with lower abdominal discomfort feeling of gas. Diet. Last bowel movement was yesterday. Normally has a bowel movement every day. Also nausea vomiting today. [place] bloated in the abdomen. [address] scan of the abdomen showed dilated transverse colon with a focal transition point. Involving the left descending colon. With some short segment of circumferential wall thickening. Patient is NPO. February 22: I saw the patient this morning. Was pending colonoscopy. Later underwent the same by Dr. Domitila Staley. Distal transverse colon circumferential ulcerated mass with significant luminal narrowing. Scope could not be passed through. Multiple biopsies were done. Dr. Staley discussed this with the patient and the family. Patient kept on clear liquids. Surgery on the case. Patient has some left abdominal discomfort. February 23: Patient seen this morning. Pending surgical intervention by Dr. Patel. NPO. IV fluids.. February 24: Yesterday patient underwent laparotomy followed by left hemicolectomy for a partially obstructing colon mass. Midline incision with OptiForm. Some looking at the lower end. Patient is n.p.o. except ice chips. Did pass some flatus. No nausea vomiting. No pain. February 25: Patient on clear liquids. Some abdominal pain. Minimal flatus. Family at the bedside. Told the patient to be up in a chair. Getting IV fluids. Active Medications Acetaminophen (Acetaminophen Tab 325 Mg Tab) 650 mg PO Q6HR PRN PRN Reason: Mild Pain or Fever > 100.5 Albuterol/Ipratropium (Ipratropium-Albuterol 3 Ml Neb) 3 ml INHALATION RT-QID PRN PRN Reason: Shortness Of Breath Or Wheezing Amlodipine Besylate (Amlodipine 2.5 Mg Tab) 2.5 mg PO DAILY [facility] Last Admin: 02/25/25 07:50 Dose: 2.5 mg Aspirin (Aspirin 325 Mg Tab) 325 mg PO HS [facility] Last Admin: 02/24/25 20:35 Dose: 325 mg Atorvastatin Calcium (Atorvastatin 10 Mg Tab) 10 mg PO HS [facility] Last Admin: 02/24/25 20:35 Dose: 10 mg Buspirone HCl (Buspirone Hcl 5 Mg Tab) 15 mg PO BID [facility] Last Admin: 02/25/25 07:50 Dose: 15 mg Cyanocobalamin (Cyanocobalamin 1,000 Mcg/Ml 1 Ml Vial) 1,000 mcg SQ QMONTHLY [facility] Last Admin: 02/21/25 09:26 Dose: 1,000 mcg Divalproex Sodium (Divalproex Er 250 Mg Tab.Er.24h) 250 mg PO [facility] Last Admin: 02/24/25 20:36 Dose: 250 mg Lactated Ringer's (Lactated Ringers) 1,000 mls @ 100 mls/hr IV .Q10H [facility] Last Admin: 02/25/25 18:59 Dose: Not Given Piperacillin Sod/Tazobactam (Sod 3.375 gm/ Sodium Chloride) 100 mls @ 25 mls/hr IVPB Q8H [facility]; Protocol Last Admin: 02/25/25 13:48 Dose: 25 mls/hr Losartan Potassium (Losartan 50 Mg Tab) 100 mg PO [facility] Last Admin: 02/24/25 20:35 Dose: 100 mg Morphine Sulfate (Morphine Sulfate 2 Mg/Ml Syringe) 2 mg IVP Q4HR PRN PRN Reason: Pain/Discomfort Last Admin: 02/25/25 14:00 Dose: 2 mg Naloxone HCl (Naloxone 0.4 Mg/Ml 1 Ml Vial) 0.2 mg IV Q2M PRN PRN Reason: Opioid Reversal Ondansetron HCl (Ondansetron 4 Mg/2 Ml Vial) 4 mg IVP Q8HR PRN PRN Reason: Nausea And Vomiting Last Admin: 02/25/25 16:06 Dose: 4 mg Tamsulosin HCl (Tamsulosin 0.4 Mg Cap.Er.24h) 0.4 mg PO [facility]KFST [facility] Last Admin: 02/25/25 07:50 Dose: 0.4 mg Trazodone HCl (Trazodone Hcl 50 Mg Tab) 50 mg PO [facility] Last Admin: 02/24/25 20:35 Dose: 50 mg Social history: Lives at [facility]. Uses a walker. Legal guardian Liset Per social work. On examination: VITAL SIGNS: 98.4, 71, 19, 166 x 74, 95% liters GENERAL APPEARANCE: Comfortable, laying in bed HEENT: Normal external appearance of nose and ear. Oral cavity normal EYES: Pupils equal. Conjunctiva normal. NECK: JVD not raised. Mass not palpable. RESPIRATORY: Respiratory effort normal. Lungs decreased breath sounds CARDIOVASCULAR: First and second sounds normal. No edema. ABDOMEN: Soft. Mild tenderness. Midline incision with OptiForm. Some blood soaking of the distal end.. Liver and spleen not palpable. No tenderness. No mass palpable. PSYCHIATRY: Able to answer simple questions. Mood affect normal. MUSCULOSKELETAL:No Clubbing/cyanosis;muscles-grossly intact. OA INVESTIGATIONS, reviewed in the clinical context: February 25: White count 9.4 hemoglobin 10.5 potassium 3.8 creatinine 1.8 February 24: White count 10.6 potassium 4.2 creatinine 1.2 February 23: White count 8.4 hemoglobin 10.3 platelets 198 potassium 3.8 Prevena 26 creatinine 1.5 February 22: White count 9.1 hemoglobin 10.9 platelets 218 potassium 3.9 creatinine 1.5 February 20, 2025: White count 10.0 hemoglobin 12.5 platelets 244 sodium 142 potassium 4.2 BUN 33 creatinine 1.44 UA: Protein 1+. Ketone trace. Leukoesterase large. WBC 129 EKG tracing personally reviewed by me-normal sinus rhythm. Rate 74. CT abdomen pelvis: Mildly dilated transverse colon with focal transition point involving the left descending colon with some short segment circumferential wall thickening and surrounding fat stranding with tiny adjacent lymph nodes. Diverticula in this region. Distal abdominal aortic aneurysm 4.4 cm. Punctate nonobstructive left renal calculus. Assessment plan: - Acute partial bowel obstruction involving the left descending colon with some short segment circumferential wall thickening and surrounding fat stranding. Being followed by GI/general surgery. NPO. -Distal transverse colon circumferential ulcerated mass with significant luminal narrowing endoscope could not be passed through the mass, status post multiple biopsies followed by tattooing with Opal ink: New diagnosis Left hemicolectomy by Dr. Patel on February 23. Today: Clear liquids. Minimal flatus -Colonic diverticulosis. Doubt diverticulitis. -Essential hypertension, Amlodipine. Losartan - depression, Trazodone. BuSpar. 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 Discussed with patient and family at the bedside. Past Medical History Past Medical History: Dementia, Hyperlipidemia, Hypertension Additional Past Medical History / Comment(s): abdominal aortic aneurysm History of Any Multi-Drug Resistant Organisms: None Reported Past Surgical History: Heart Catheterization With Stent, Tonsillectomy Past Anesthesia/Blood Transfusion Reactions: Unable to Obtain Date of Last Stent Placement:: Unknown Past Psychological History: No Psychological Hx Reported Smoking Status: Former smoker Past Alcohol Use History: None Reported Past Drug Use History: None Reported
--- NOTE | 2025-02-26 00:53 | XR ---
EXAM: XR Abdomen, 1 View CLINICAL HISTORY: ITS.REASON XR Reason: abdominal pain, N/V TECHNIQUE: Frontal supine view of the abdomen/pelvis. COMPARISON: No relevant prior studies available. FINDINGS: Lower thorax: LEFT lower lobe pneumonia. Moderate LEFT pleural effusion. Gastrointestinal tract: Dilated small bowel measuring up to approximately 4.1 cm, concerning for bowel obstruction. Bones/joints: Unremarkable. IMPRESSION: 1. LEFT lower lobe pneumonia. Moderate LEFT pleural effusion. 2. Dilated small bowel measuring up to approximately 4.1 cm, concerning for bowel obstruction.
--- NOTE | 2025-02-26 05:06 | XR ---
EXAM: XR Chest, 1 View CLINICAL HISTORY: ITS.REASON XR Reason: confirm NG tube placement TECHNIQUE: Frontal view of the chest. COMPARISON: No relevant prior studies available. IMPRESSION: Feeding tube side port is near the GE junction. Advance 3-5 cm
--- NOTE | 2025-02-26 06:39 | XR ---
EXAMINATION TYPE: XR chest 1V DATE OF EXAM: 02/26/2025 CLINICAL INDICATION: Male, 79 years old with history of confirm NG placement, progress study. TECHNIQUE: 2 AP portable semiupright views of the chest are obtained. COMPARISON: Chest x-ray from later today FINDINGS: Redemonstration of nasogastric tube projecting below diaphragm with side port now more bel ow diaphragm. Persistent small left pleural effusion and left basilar opacity. Persistent atherosclerotic and ectat ic aortic knob and mild cardiomegaly. Persistent multilevel spurring in the thoracic spine. IMPRESSION: Satisfactory positioning of NG tube after advancement X-Ray Trevor Fan, , 02/26/2025 6:36 AM
[2025-02-26 08:53] LABS: ALT 10 U/L (10-49); AST 14 U/L (14-35); Albumin 3.6 g/dL (3.8-4.9); Albumin/Globulin Ratio 1.24 Ratio (1.60-3.17); Alkaline Phosphatase 70 U/L (41-126); BUN/Creat Ratio 16.08 Ratio (12.00-20.00); Basophils # (A) 0.05 X 10*3/uL (0.00-0.10); Basophils % (A) 0.4 %; Blood Urea Nitrogen 19.3 mg/dL (9.0-27.0); Calcium 8.9 mg/dL (8.7-10.3); Carbon Dioxide 25.7 mmol/L (21.6-31.8); Chloride 101 mmol/L (96-109); Eosinophils # (A) 0.01 X 10*3/uL (0.04-0.35); Eosinophils % (A) 0.1 %; Globulin 2.9 g/dL (1.6-3.3); Glucose 155 mg/dL (70-110); HCT 35.1 % (39.6-50.0); HGB 11.3 g/dL (13.0-17.0); Lymphocytes # (A) 0.86 X 10*3/uL (0.90-5.00); Lymphocytes % (A) 7.3 %; MCH 30.1 pg (27.0-32.0); MCHC 32.2 g/dL (32.0-37.0); MCV 93.6 FL (80.0-97.0); Mean Platelet Volume 11.5 FL (9.5-12.2); Monocytes % (A) 6.8 %; NRBC Per 100 WBC 0 X 10*3/uL (0.00-0.01); Neutrophils # (A) 10.08 X 10*3/uL (1.80-7.70); Neutrophils % (A) 85.1 %; Platelet Count 237 X 10*3/uL (140-440); Potassium 3.6 mmol/L (3.5-5.5); RBC 3.75 X 10*6/uL (4.40-5.60); RDW 12.2 % (11.5-14.5); Sodium 138 mmol/L (135-145); Total Bilirubin 0.8 mg/dL (0.3-1.2); Total Protein 6.5 g/dL (6.2-8.2); WBC 11.84 X 10*3/uL (4.50-10.00)
--- NOTE | 2025-02-26 13:49 | P.PN ---
Subjective Progress Note Date: 02/26/25 SURGICAL PROGRESS NOTE CHIEF COMPLAINT: Colon mass HISTORY OF PRESENT ILLNESS: Patient is postop day #3 status post exploratory laparotomy with a left hemicolectomy. Last night patient started having vom iting. Abdominal x-ray was completed that reported a dilated small bowel and concerns for possible bowel obstruction. Patient had NG tube inserted with 450 mL output. This morning he had 200 mL brownish output through NG tube. Patient reports his abdominal pain is controlled and is better since placement of the NG tube. He does report a little nausea but also improved since NG tube placement. He is having flatus. Denies bowel movement. Afebrile. WBC is up from 9.4- 11.8 PHYSICAL EXAM: VITAL SIGNS: Reviewed. GENERAL: Well-developed in no acute distress. ABDOMEN: Soft. Distended. Tenderness at incision site. Incisional dressing pulled back there is dried blood with small clot distal incision. NEUROLOGIC: awake and alert ASSESSMENT: 1. Partially obstructing left colon mass PLAN: -Patient had vomiting and required NG tube placement last night. Continue NG tube to low intermittent suction -Keep patient n.p.o. -Continue IV fluids -Continue antibiotics -Encourage patient to increase activity level. He does report difficulty with ambulating -DVT prophylaxis subcu heparin added Physician Trend Investigator note has been reviewed by physician. Signing provider agrees with the documented findings, assessment, and plan of care. Objective - Vital Signs Vital signs: Vital Signs Temp 98.1 F 02/26/25 06:55 Pulse 77 02/26/25 06:55 Resp 17 02/26/25 06:55 BP 177/79 02/26/25 06:55 Pulse Ox 97 02/26/25 10:42 FiO2 Intake & Output 02/25/25 02/26/25 02/26/25 18:59 06:59 18:59 Output Total 920 650 450 Balance -920 -650 -450 Output: Gastric Drainage 450 Urine 920 650 Other: Voiding Method Indwelling Catheter Indwelling Catheter Indwelling Catheter - Labs CBC & Chem 7: 02/26/25 03:51 02/26/25 03:51 Labs: Abnormal Lab Results - Last 24 Hours (Table) 02/26/25 02/26/25 Range/Units 03:51 03:51 WBC 11.84 H (4.50-10.00) X 10*3/uL RBC 3.75 L (4.40-5.60) X 10*6/uL Hgb 11.3 L (13.0-17.0) g/dL Hct 35.1 L (39.6-50.0) % Neutrophils # 10.08 H (1.80-7.70) X 10*3/uL Lymphocytes # 0.86 L (0.90-5.00) X 10*3/uL Eosinophils # 0.01 L (0.04-0.35) X 10*3/uL Glucose 155 H (70-110) mg/dL Albumin 3.6 L (3.8-4.9) g/dL Albumin/Globulin Ratio 1.24 L (1.60-3.17) Ratio
[2025-02-26] MEDS: HEPARIN SODIUM,PORCINE 5,000 UNIT/ML 1 ML VIAL SQ SCH (14:13)
[2025-02-26] MEDS: cloNIDine 0.2 MG/24HR PATCH TRANSDERM SCH (14:14)
[2025-02-26 16:19] VITALS: BMI 32.1
--- NOTE | 2025-02-26 19:57 | P.PN ---
Progress Note - Text Progress Note Date: 02/26/25 Chief Complaint: Abdominal distention 79-year-old male- patient, follows with visiting physician Dr. Cortés. Chronic stable medical condition include dementia, hypertension, hyperlipidemia. patient lives at [facility]. Does use a walker. Patient presents with lower abdominal discomfort feeling of gas. Diet. Last bowel movement was yesterday. Normally has a bowel movement every day. Also nausea vomiting today. [place] bloated in the abdomen. [address] scan of the abdomen showed dilated transverse colon with a focal transition point. Involving the left descending colon. With some short segment of circumferential wall thickening. Patient is NPO. February 22: I saw the patient this morning. Was pending colonoscopy. Later underwent the same by Dr. Domitila Staley. Distal transverse colon circumferential ulcerated mass with significant luminal narrowing. Scope could not be passed through. Multiple biopsies were done. Dr. Staley discussed this with the patient and the family. Patient kept on clear liquids. Surgery on the case. Patient has some left abdominal discomfort. February 23: Patient seen this morning. Pending surgical intervention by Dr. Patel. NPO. IV fluids.. February 24: Yesterday patient underwent laparotomy followed by left hemicolectomy for a partially obstructing colon mass. Midline incision with OptiForm. Some looking at the lower end. Patient is n.p.o. except ice chips. Did pass some flatus. No nausea vomiting. No pain. February 25: Patient on clear liquids. Some abdominal pain. Minimal flatus. Family at the bedside. Told the patient to be up in a chair. Getting IV fluids. February 26: Last night patient started vomiting. Abdominal x-ray showed a small bowel dilatation,/obstruction. NG tube was placed. Significant output. No flatus. Patient is put on a Catapres patch for his blood pressure. Getting LR. Awake tired Active Medications Acetaminophen (Acetaminophen Tab 325 Mg Tab) 650 mg PO Q6HR PRN PRN Reason: Mild Pain or Fever > 100.5 Albuterol/Ipratropium (Ipratropium-Albuterol 3 Ml Neb) 3 ml INHALATION RT-QID PRN PRN Reason: Shortness Of Breath Or Wheezing Amlodipine Besylate (Amlodipine 2.5 Mg Tab) 2.5 mg PO DAILY [facility] Last Admin: 02/26/25 08:45 Dose: 2.5 mg Aspirin (Aspirin 325 Mg Tab) 325 mg PO [facility] Last Admin: 02/25/25 19:49 Dose: 325 mg Atorvastatin Calcium (Atorvastatin 10 Mg Tab) 10 mg PO [facility] Last Admin: 02/25/25 19:49 Dose: 10 mg Buspirone HCl (Buspirone Hcl 5 Mg Tab) 15 mg PO BID [facility] Last Admin: 02/26/25 08:45 Dose: 15 mg Clonidine HCl (Clonidine 0.2 Mg/24hr Patch) 1 patch TRANSDERM Q7D [facility] Last Admin: 02/26/25 14:14 Dose: 1 patch Cyanocobalamin (Cyanocobalamin 1,000 Mcg/Ml 1 Ml Vial) 1,000 mcg SQ QMONTHLY [facility] Last Admin: 02/21/25 09:26 Dose: 1,000 mcg Divalproex Sodium (Divalproex Er 250 Mg Tab.Er.24h) 250 mg PO [facility] Last Admin: 02/25/25 19:49 Dose: 250 mg Heparin Sodium (Porcine) (Heparin Sodium,Porcine 5,000 Unit/Ml 1 Ml Vial) 5,000 unit SQ Q12HR [facility] Last Admin: 02/26/25 14:13 Dose: 5,000 unit Lactated Ringer's (Lactated Ringers) 1,000 mls @ 100 mls/hr IV .Q10H [facility] Last Admin: 02/26/25 16:04 Dose: Not Given Piperacillin Sod/Tazobactam (Sod 3.375 gm/ Sodium Chloride) 100 mls @ 25 mls/hr IVPB Q8H [facility]; Protocol Last Admin: 02/26/25 11:02 Dose: 25 mls/hr Morphine Sulfate (Morphine Sulfate 2 Mg/Ml Syringe) 2 mg IVP Q4HR PRN PRN Reason: Pain/Discomfort Last Admin: 02/26/25 11:03 Dose: 2 mg Naloxone HCl (Naloxone 0.4 Mg/Ml 1 Ml Vial) 0.2 mg IV Q2M PRN PRN Reason: Opioid Reversal Ondansetron HCl (Ondansetron 4 Mg/2 Ml Vial) 4 mg IVP Q8HR PRN PRN Reason: Nausea And Vomiting Last Admin: 02/26/25 08:11 Dose: 4 mg Tamsulosin HCl (Tamsulosin 0.4 Mg Cap.Er.24h) 0.4 mg PO PC-BRKFST [facility] Last Admin: 02/26/25 08:45 Dose: 0.4 mg Trazodone HCl (Trazodone Hcl 50 Mg Tab) 50 mg PO HS [facility] Last Admin: 02/25/25 19:50 Dose: 50 mg Social history: Lives at [facility]. Uses a walker. Legal guardian Liset Per social work. On examination: VITAL SIGNS: 98.1, 77, 17, 177 x 79, 91% room air GENERAL APPEARANCE: Laying in bed, tired HEENT: Normal external appearance of nose and ear. Oral cavity dry mucous membrane. NG tube to suction EYES: Pupils equal. Conjunctiva normal. NECK: JVD not raised. Mass not palpable. RESPIRATORY: Respiratory effort normal. Lungs decreased breath sounds CARDIOVASCULAR: First and second sounds normal. No edema. ABDOMEN: Soft. Tender. Distended. Midline incision with OptiForm. Some blood soaking of the distal end.. Liver and spleen not palpable. No tenderness. No mass palpable. PSYCHIATRY: Able to answer simple questions. Mood affect normal. MUSCULOSKELETAL:No Clubbing/cyanosis;muscles-grossly intact. OA INVESTIGATIONS, reviewed in the clinical context: Abdominal x-ray [February 26] small bowel dilatation February 26: White count 9.8 hemoglobin 11.3 platelets 237 potassium 3.6 creatinine 1.2 February 25: White count 9.4 hemoglobin 10.5 potassium 3.8 creatinine 1.8 February 24: White count 10.6 potassium 4.2 creatinine 1.2 February 23: White count 8.4 hemoglobin 10.3 platelets 198 potassium 3.8 Prevena 26 creatinine 1.5 February 22: White count 9.1 hemoglobin 10.9 platelets 218 potassium 3.9 creatinine 1.5 February 20, 2025: White count 10.0 hemoglobin 12.5 platelets 244 sodium 142 potassium 4.2 BUN 33 creatinine 1.44 UA: Protein 1+. Ketone trace. Leukoesterase large. WBC 129 EKG tracing personally reviewed by me-normal sinus rhythm. Rate 74. CT abdomen pelvis: Mildly dilated transverse colon with focal transition point involving the left descending colon with some short segment circumferential wall thickening and surrounding fat stranding with tiny adjacent lymph nodes. Diverticula in this region. Distal abdominal aortic aneurysm 4.4 cm. Punctate nonobstructive left renal calculus. Assessment plan: - Acute partial bowel obstruction involving the left descending colon with some short segment circumferential wall thickening and surrounding fat stranding.: On presentation . -Distal transverse colon circumferential ulcerated mass with significant luminal narrowing endoscope could not be passed through the mass, status post multiple biopsies followed by tattooing with Opal ink: New diagnosis Left hemicolectomy by Dr. Patel on February 23. February 25: Clear liquids. Minimal flatus February 26: Overnight patient started vomiting. Abdominal x-ray shows small bowel dilatation/obstruction. NG tube placed. Increased output -Colonic diverticulosis. Doubt diverticulitis. -Essential hypertension, Amlodipine. Losartan: P.o. meds on hold Catapres patch 0.2 - depression, Trazodone. BuSpar. 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 NG tube. Catapres patch. IV fluids. Past Medical History Past Medical History: Dementia, Hyperlipidemia, Hypertension Additional Past Medical History / Comment(s): abdominal aortic aneurysm History of Any Multi-Drug Resistant Organisms: None Reported Past Surgical History: Heart Catheterization With Stent, Tonsillectomy Past Anesthesia/Blood Transfusion Reactions: Unable to Obtain Date of Last Stent Placement:: Unknown Past Psychological History: No Psychological Hx Reported Smoking Status: Former smoker Past Alcohol Use History: None Reported Past Drug Use History: None Reported
[2025-02-27 04:18] LABS: African American GFR (CKD) 61 (>60 ml/min/1.73 sqM); Anion Gap 5 mmol/L; Blood Urea Nitrogen 35 mg/dL (9-20); Calcium 8.9 mg/dL (8.4-10.2); Carbon Dioxide 36 mmol/L (22-30); Chloride 99 mmol/L (98-107); Glucose 112 mg/dL (74-99); Non-African American GFR(CKD) 53 (>60 ml/min/1.73 sqM); Potassium 3.6 mmol/L (3.5-5.1); Sodium 140 mmol/L (137-145)
[2025-02-27 09:02] LABS: Basophils # (A) 0.06 X 10*3/uL (0.00-0.10); Basophils % (A) 0.4 %; Eosinophils # (A) 0.12 X 10*3/uL (0.04-0.35); Eosinophils % (A) 0.9 %; HCT 33.5 % (39.6-50.0); HGB 10.6 g/dL (13.0-17.0); Lymphocytes # (A) 1.52 X 10*3/uL (0.90-5.00); Lymphocytes % (A) 11.1 %; MCHC 31.6 g/dL (32.0-37.0); MCV 94.9 FL (80.0-97.0); Mean Platelet Volume 11.6 FL (9.5-12.2); Monocytes # (A) 1.03 X 10*3/uL (0.20-1.00); Monocytes % (A) 7.5 %; NRBC Per 100 WBC 0 X 10*3/uL (0.00-0.01); Neutrophils # (A) 10.98 X 10*3/uL (1.80-7.70); Neutrophils % (A) 79.9 %; Platelet Count 240 X 10*3/uL (140-440); RBC 3.53 X 10*6/uL (4.40-5.60); RDW 12.5 % (11.5-14.5); WBC 13.74 X 10*3/uL (4.50-10.00)
--- NOTE | 2025-02-27 09:41 | XR ---
EXAMINATION TYPE: XR chest 1V DATE OF EXAM: 02/27/2025 9:25 AM COMPARISON: Chest radiographs from 02/26/2025 TECHNIQUE: XR chest 1V Frontal view of the chest. CLINICAL INDICATION:Male, 79 years old with history of NG tube placement; FINDINGS: Limited examination due to underpenetration. Lungs/Pleura: No pneumothorax. Persistent left pleural effusion and left basilar opacity. Heart/mediastinum: Cardiomediastinal silhouette is enlarged and stable. Atherosclerotic calcificatio ns are seen in the aorta. Ectatic aortic knob redemonstrated. Musculoskeletal: No acute osseous pathology. Multilevel spurring of the thoracic spine. Other findings: None Lines/Tubes: Nasogastric tube with its distal tip and side-port projecting under the diaphragm and projecting over the gastric lumen. IMPRESSION: 1. Limited exam due to underpenetration with the NG tube appearing to be grossly in satisfactory pos ition. 2. Persistent small pleural effusion and left basilar opacity. [facility], , 02/27/2025 9:39 AM
--- NOTE | 2025-02-27 15:34 | P.PN ---
Subjective Progress Note Date: 02/27/25 SURGICAL PROGRESS NOTE CHIEF COMPLAINT: Colon mass HISTORY OF PRESENT ILLNESS: Patient is postop day #4 status post exploratory laparotomy with a left hemicolectomy. Patient having large output through NG tube likely due to him drinking fluids. However, he did have about 400 brownish output through his NG tube this morning. NG tube was pulled last night. New NG tube was placed. Patient reports having flatus. Denies any bowel movements. Denies any nausea. Afebrile. On 2 L satting at 94%. Chest x-ray NG tube in satisfactory position. Persistent small pleural effusion and left basilar opac ity. WBC trending up from 11.8-13.7 creatinine 1.26 PHYSICAL EXAM: VITAL SIGNS: Reviewed. GENERAL: Well-developed in no acute distress. ABDOMEN: Soft. Mildly distended. Tenderness at incision site. Incisional dressing clean dry and intact NEUROLOGIC: awake and alert ASSESSMENT: 1. Partially obstructing left colon mass 2. Postoperative ileus can be an expected finding 3. Possible developing pneumonia could be contributing to the leukocytosis 4. 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 -Continue IV fluids -Continue antibiotics -Encourage patient to increase activity level. -Encourage patient to use incentive spirometer -DVT prophylaxis subcu heparin Physician Mobile Equipment Servicer note has been reviewed by physician. Signing provider agrees with the documented findings, assessment, and plan of care. Attestation Patient seen and examined at bedside on 02/27/2025. Slight uptrend in leukocytosis. Patient has not had bowel movement as of yet. Start Dulcolax suppository. Start Reglan. Nasogastric tube to low intermittent suction with continued output, concerning for ileus that would be expected. Akash Patel, Objective - Vital Signs Vital signs: Vital Signs Temp 98.7 F 02/27/25 14:30 Pulse 55 L 02/27/25 14:30 Resp 18 02/27/25 14:30 BP 167/75 02/27/25 14:30 Pulse Ox 94 L 02/27/25 14:30 FiO2 Intake & Output 02/26/25 02/27/25 02/27/25 18:59 06:59 18:59 Output Total 1850 2125 Balance -1849 Weight 104.326 kg Output: Gastric Drainage 1450 1700 Urine 400 425 Other: Voiding Method Indwelling Catheter Indwelling Catheter Indwelling Catheter - Labs CBC & Chem 7: 02/28/25 02:57 02/28/25 02:57 Labs: Abnormal Lab Results - Last 24 Hours (Table) 02/27/25 02/27/25 Range/Units 03:00 03:00 WBC 13.74 H (4.50-10.00) X 10*3/uL RBC 3.53 L (4.40-5.60) X 10*6/uL Hgb 10.6 L (13.0-17.0) g/dL Hct 33.5 L (39.6-50.0) % MCHC 31.6 L (32.0-37.0) g/dL Neutrophils # 10.98 H (1.80-7.70) X 10*3/uL Monocytes # 1.03 H (0.20-1.00) X 10*3/uL Carbon Dioxide 36 H (22-30) mmol/L BUN 35 H (9-20) mg/dL Creatinine 1.26 H (0.66-1.25) mg/dL Glucose 112 H (74-99) mg/dL
[2025-02-27] MEDS: bisacodyL 10 MG SUPP RECTAL SCH (16:24)
[2025-02-27] MEDS: METOCLOPRAMIDE 5 MG/ML 2 ML VIAL IVP SCH (16:25)
--- NOTE | 2025-02-27 19:28 | P.PN ---
Progress Note - Text Progress Note Date: 02/27/25 Chief Complaint: Abdominal distention 79-year-old male- patient, follows with visiting physician Dr. Cortés. Chronic stable medical condition include dementia, hypertension, hyperlipidemia. patient lives at [facility]. Does use a walker. Patient presents with lower abdominal discomfort feeling of gas. Diet. Last bowel movement was yesterday. Normally has a bowel movement every day. Also nausea vomiting today. [place] bloated in the abdomen. [address] scan of the abdomen showed dilated transverse colon with a focal transition point. Involving the left descending colon. With some short segment of circumferential wall thickening. Patient is NPO. February 22: I saw the patient this morning. Was pending colonoscopy. Later underwent the same by Dr. Domitila Staley. Distal transverse colon circumferential ulcerated mass with significant luminal narrowing. Scope could not be passed through. Multiple biopsies were done. Dr. Staley discussed this with the patient and the family. Patient kept on clear liquids. Surgery on the case. Patient has some left abdominal discomfort. February 23: Patient seen this morning. Pending surgical intervention by Dr. Patel. NPO. IV fluids.. February 24: Yesterday patient underwent laparotomy followed by left hemicolectomy for a partially obstructing colon mass. Midline incision with OptiForm. Some looking at the lower end. Patient is n.p.o. except ice chips. Did pass some flatus. No nausea vomiting. No pain. February 25: Patient on clear liquids. Some abdominal pain. Minimal flatus. Family at the bedside. Told the patient to be up in a chair. Getting IV fluids. February 26: Last night patient started vomiting. Abdominal x-ray showed a small bowel dilatation,/obstruction. NG tube was placed. Significant output. No flatus. Patient is put on a Catapres patch for his blood pressure. Getting LR. Awake tired February 27: Continues to have NG tube to suction. Patient seen this morning. Less abdominal pain. Minimal flatus. Blood pressure better with the Catapres patch. Awake, tired. Active Medications Acetaminophen (Acetaminophen Tab 325 Mg Tab) 650 mg PO Q6HR PRN PRN Reason: Mild Pain or Fever > 100.5 Albuterol/Ipratropium (Ipratropium-Albuterol 3 Ml Neb) 3 ml INHALATION RT-QID PRN PRN Reason: Shortness Of Breath Or Wheezing Amlodipine Besylate (Amlodipine 2.5 Mg Tab) 2.5 mg PO DAILY [facility] Last Admin: 02/27/25 09:16 Dose: 2.5 mg Aspirin (Aspirin 325 Mg Tab) 325 mg PO HS [facility] Last Admin: 02/26/25 21:20 Dose: 325 mg Atorvastatin Calcium (Atorvastatin 10 Mg Tab) 10 mg PO HS [facility] Last Admin: 02/26/25 21:20 Dose: 10 mg Bisacodyl (Bisacodyl 10 Mg Supp) 10 mg RECTAL DAILY [facility] Last Admin: 02/27/25 16:24 Dose: 10 mg Buspirone HCl (Buspirone Hcl 5 Mg Tab) 15 mg PO BID [facility] Last Admin: 02/27/25 09:16 Dose: 15 mg Clonidine HCl (Clonidine 0.2 Mg/24hr Patch) 1 patch TRANSDERM Q7D [facility] Last Admin: 02/26/25 14:14 Dose: 1 patch Cyanocobalamin (Cyanocobalamin 1,000 Mcg/Ml 1 Ml Vial) 1,000 mcg SQ QMONTHLY [facility] Last Admin: 02/21/25 09:26 Dose: 1,000 mcg Divalproex Sodium (Divalproex Er 250 Mg Tab.Er.24h) 250 mg PO HS [facility] Last Admin: 02/26/25 21:20 Dose: 250 mg Heparin Sodium (Porcine) (Heparin Sodium,Porcine 5,000 Unit/Ml 1 Ml Vial) 5,000 unit SQ Q12HR [facility] Last Admin: 02/27/25 09:16 Dose: 5,000 unit Lactated Ringer's (Lactated Ringers) 1,000 mls @ 100 mls/hr IV .Q10H [facility] Last Admin: 02/27/25 12:38 Dose: Not Given Piperacillin Sod/Tazobactam (Sod 3.375 gm/ Sodium Chloride) 100 mls @ 25 mls/hr IVPB Q8H [facility]; Protocol Last Admin: 02/27/25 12:51 Dose: 25 mls/hr Metoclopramide HCl (Metoclopramide 5 Mg/Ml 2 Ml Vial) 5 mg IVP Q8HR [facility] Last Admin: 02/27/25 16:25 Dose: 5 mg Morphine Sulfate (Morphine Sulfate 2 Mg/Ml Syringe) 2 mg IVP Q4HR PRN PRN Reason: Pain/Discomfort Last Admin: 02/26/25 11:03 Dose: 2 mg Naloxone HCl (Naloxone 0.4 Mg/Ml 1 Ml Vial) 0.2 mg IV Q2M PRN PRN Reason: Opioid Reversal Ondansetron HCl (Ondansetron 4 Mg/2 Ml Vial) 4 mg IVP Q8HR PRN PRN Reason: Nausea And Vomiting Last Admin: 02/26/25 08:11 Dose: 4 mg Tamsulosin HCl (Tamsulosin 0.4 Mg Cap.Er.24h) 0.4 mg PO PC-BRKFST [facility] Last Admin: 02/27/25 09:16 Dose: 0.4 mg Trazodone HCl (Trazodone Hcl 50 Mg Tab) 50 mg PO [facility] Last Admin: 02/26/25 21:20 Dose: 50 mg Social history: Lives at [facility]. Uses a walker. Legal guardian Liset Per social work. On examination: VITAL SIGNS: 98.7, 55, 18, 167 x 75, 94% 2 L GENERAL APPEARANCE: Laying in bed, tired HEENT: Normal external appearance of nose and ear. Oral cavity dry mucous membrane. NG tube to suction EYES: Pupils equal. Conjunctiva normal. NECK: JVD not raised. Mass not palpable. RESPIRATORY: Respiratory effort normal. Lungs decreased breath sounds CARDIOVASCULAR: First and second sounds normal. No edema. ABDOMEN: Soft. Less tender and less distended. Midline incision with OptiForm. Some blood soaking of the distal end.. Liver and spleen not palpable. No tenderness. No mass palpable. PSYCHIATRY: Able to answer simple questions. Mood affect normal. MUSCULOSKELETAL:No Clubbing/cyanosis;muscles-grossly intact. OA INVESTIGATIONS, reviewed in the clinical context: February 27: White count 13.7 hemoglobin 10.6 potassium 3.6 BUN 35 creatinine 1.26 Abdominal x-ray [February 26] small bowel dilatation February 26: White count 9.8 hemoglobin 11.3 platelets 237 potassium 3.6 creatinine 1.2 February 25: White count 9.4 hemoglobin 10.5 potassium 3.8 creatinine 1.8 February 24: White count 10.6 potassium 4.2 creatinine 1.2 February 23: White count 8.4 hemoglobin 10.3 platelets 198 potassium 3.8 Prevena 26 creatinine 1.5 February 22: White count 9.1 hemoglobin 10.9 platelets 218 potassium 3.9 creatinine 1.5 February 20, 2025: White count 10.0 hemoglobin 12.5 platelets 244 sodium 142 potassium 4.2 BUN 33 creatinine 1.44 UA: Protein 1+. Ketone trace. Leukoesterase large. WBC 129 EKG tracing personally reviewed by me-normal sinus rhythm. Rate 74. CT abdomen pelvis: Mildly dilated transverse colon with focal transition point involving the left descending colon with some short segment circumferential wall thickening and surrounding fat stranding with tiny adjacent lymph nodes. Diverticula in this region. Distal abdominal aortic aneurysm 4.4 cm. Punctate nonobstructive left renal calculus. Assessment plan: - Acute partial bowel obstruction involving the left descending colon with some short segment circumferential wall thickening and surrounding fat stranding.: On presentation . -Distal transverse colon circumferential ulcerated mass with significant luminal narrowing endoscope could not be passed through the mass, status post multiple biopsies followed by tattooing with Opal ink: New diagnosis Left hemicolectomy by Dr. Patel on February 23. February 27: NG tube to suction remains. Decreased tenderness and decreased distention of the abdomen. Minimal flatus -Colonic diverticulosis. Doubt diverticulitis. -Essential hypertension, Amlodipine. Losartan: P.o. meds on hold Catapres patch 0.2 - depression, Trazodone. BuSpar. 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 NG tube to suction. IV Zosyn. IV fluids. Past Medical History Past Medical History: Dementia, Hyperlipidemia, Hypertension Additional Past Medical History / Comment(s): abdominal aortic aneurysm History of Any Multi-Drug Resistant Organisms: None Reported Past Surgical History: Heart Catheterization With Stent, Tonsillectomy Past Anesthesia/Blood Transfusion Reactions: Unable to Obtain Date of Last Stent Placement:: Unknown Past Psychological History: No Psychological Hx Reported Smoking Status: Former smoker Past Alcohol Use History: None Reported Past Drug Use History: None Reported
[2025-02-28 03:51] LABS: Basophils % (A) 0.9 %; Eosinophils # (A) 0.37 10*3/uL (0.04-0.35); Eosinophils % (A) 3.4 %; HCT 35.2 % (39.6-50.0); HGB 10.9 g/dL (13.0-17.0); Lymphocytes # (A) 1.98 10*3/uL (0.90-5.00); Lymphocytes % (A) 18.1 %; MCH 29.9 pg (27.0-32.0); MCV 96.4 fL (80.0-97.0); Monocytes # (A) 0.97 10*3/uL (0.20-1.00); Monocytes % (A) 8.9 %; Neutrophils # (A) 7.46 10*3/uL (1.80-7.70); Neutrophils % (A) 68.4 %; Platelet Count 242 10*3/uL (140-440); RBC 3.65 10*6/uL (4.40-5.60); RDW 12.4 % (11.5-14.5); WBC 10.91 10*3/uL (4.50-10.00)
[2025-02-28 04:41] LABS: African American GFR (CKD) 65 (>60 ml/min/1.73 sqM); Anion Gap 8 mmol/L; Blood Urea Nitrogen 43 mg/dL (9-20); Calcium 9.1 mg/dL (8.4-10.2); Carbon Dioxide 35 mmol/L (22-30); Chloride 102 mmol/L (98-107); Glucose 91 mg/dL (74-99); Non-African American GFR(CKD) 56 (>60 ml/min/1.73 sqM); Potassium 3.3 mmol/L (3.5-5.1); Sodium 145 mmol/L (137-145)
[2025-02-28] MEDS: POTASSIUM CHLORIDE ER 20 MEQ TAB.ER PO STA (08:29)
[2025-02-28] MEDS: PANTOPRAZOLE 40 MG/10 ML VIAL IVP SCH (10:38)
--- NOTE | 2025-02-28 11:06 | P.PN ---
Subjective Progress Note Date: 02/28/25 SURGICAL PROGRESS NOTE CHIEF COMPLAINT: Colon mass HISTORY OF PRESENT ILLNESS: Patient is postop day #5 status post exploratory laparotomy with a left hemicolectomy. Patient denies abdominal pain. He did report having flatus and a loose bowel movement. NG tube with 700 mL output through the night 300 mL output this morning. Output brownish in color slight blood tinge. He did have 1200 mL output through the day yesterday. Afebrile. White count has decreased from 13-10 HGB 10.9 potassium 3.3 and being replaced. Creatinine 1.21 PHYSICAL EXAM: VITAL SIGNS: Reviewed. GENERAL: Well-developed in no acute distress. ABDOMEN: Soft. Nontender. Incisional dressing clean dry and intact NEUROLOGIC: awake and alert ASSESSMENT: 1. Partially obstructing left colon mass 2. Postoperative ileus can be an expected finding 3. Possible developing pneumonia could be contributing to the leukocytosis 4. 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 -Repeat CBC and BMP in a.m. -Medicine service replacing potassium -Continue IV fluids -Continue antibiotics -Encourage patient to increase activity level. -Encourage patient to use incentive spirometer -DVT prophylaxis subcu heparin -GI prophylaxis and IV Protonix added Physician French Binder note has been reviewed by physician. Signing provider agrees with the documented findings, assessment, and plan of care. Attestation Patient seen and examined at bedside. Patient did have suppository yesterday and did have bowel movement. This was loose per nursing staff. Nasogastric tube in place with 700 output over the night. Afebrile. Leukocytosis downward trending. Denies abdominal pain. Plan for repeat abdominal x-ray today for evaluation of possible resolving ileus. Continue Reglan and Dulcolax suppository daily. Continue IV fluids. Continue to monitor nasogastric output. Akash Patel DO Objective - Vital Signs Vital signs: Vital Signs Temp 98.2 F 02/28/25 07:33 Pulse 53 L 02/28/25 07:33 Resp 17 02/28/25 07:33 BP 172/77 02/28/25 07:33 Pulse Ox 98 02/28/25 09:36 FiO2 Intake & Output 02/27/25 02/28/25 02/28/25 18:59 06:59 18:59 Intake Total 1300 200 Output Total 1800 1300 Balance -500 -1100 Intake: Intake, IV Titration 1300 200 Amount Lactated Ringers 1,000 ml 1200 @ 100 mls/hr IV .Q10H [facility] Rx#:[id number] Piperacillin-Tazobactam 3 100 200 .375 gm In Sodium Chloride 0.9% 100 ml @ 25 mls/hr IVPB Q8H [facility] Rx#: [id number] Output: Gastric Drainage 1200 700 Urine 600 600 Other: Voiding Method Indwelling Catheter Indwelling Catheter Indwelling Catheter # Bowel Movements 1 - Labs CBC & Chem 7: 02/28/25 02:57 02/28/25 02:57 Labs: Abnormal Lab Results - Last 24 Hours (Table) 02/28/25 02/28/25 Range/Units 02:57 02:57 WBC 10.91 H (4.50-10.00) 10*3/uL RBC 3.65 L (4.40-5.60) 10*6/uL Hgb 10.9 L (13.0-17.0) g/dL Hct 35.2 L (39.6-50.0) % MCHC 31.0 L (32.0-37.0) g/dL Eosinophils # 0.37 H (0.04-0.35) 10*3/uL Potassium 3.3 L (3.5-5.1) mmol/L Carbon Dioxide 35 H (22-30) mmol/L BUN 43 H (9-20) mg/dL
--- NOTE | 2025-02-28 14:12 | XR ---
EXAMINATION TYPE: XR abdomen 2V DATE OF EXAM: 02/28/2025 COMPARISON: Abdominal radiograph 02/26/2025, CT abdomen and pelvis 02/20/2025 HISTORY: Follow-up on ileus, Abdominal tenderness. TECHNIQUE: Supine and upright views of the abdomen were obtained. FINDINGS: Gas identified within the nondilated colon. Gas filled small bowel measuring up to 3.7 cm in the left mid abdomen. Enteric tube identified with distal tip in the left upper quadrant in the region of the stomach [facility] the sidehole is at the GE junction. Midline skin andrea identified. No convincing evidence for pneumoperitoneum. No unusual calcifications. Cardiomegaly. The osseous structures are intact. IMPRESSION: Slight improvement in previously seen ileus with continued small bowel dilatation left mid abdomen. Enteric tube with sidehole at the GE junction. Recommend advancement of approximately 5 cm. [facility], , 02/28/2025 2:10 PM
--- NOTE | 2025-02-28 16:33 | XR ---
EXAMINATION TYPE: XR chest 1V DATE OF EXAM: 02/28/2025 4:28 PM COMPARISON: Chest radiographs from 02/27/2025, abdominal radiograph 02/28/2025 TECHNIQUE: XR chest 1V Portable AP radiograph of the chest. CLINICAL INDICATION:Male, 79 years old with history of confirm NG placement; FINDINGS: Lungs/Pleura: Persistent small left pleural effusion. No focal consolidation or pneumothorax. Pulmonary vascularity: Unremarkable. Heart/mediastinum: Cardiomediastinal silhouette is enlarged and stable. Atherosclerotic calcificatio ns are seen in the aorta. Musculoskeletal: No acute osseous pathology. Degenerative changes of the spine with osteophyte format ion. Other findings: None Lines/Tubes: Nasogastric tube with its distal tip and side-port projecting under the diaphragm and projecting over the gastric lumen. IMPRESSION: 1. NG tube in appropriate position. 2. Persistent small left pleural effusion with cardiomegaly. [facility], , 02/28/2025 4:31 PM
[2025-02-28] MEDS: ACETAMINOPHEN IV (For NPO) 1,000 MG in EMPTY BAG 1 BAG IVPB SCH (17:24)
--- NOTE | 2025-02-28 18:18 | P.PN ---
Progress Note - Text Progress Note Date: 02/28/25 Chief Complaint: Abdominal distention 79-year-old male- patient, follows with visiting physician Dr. Cortés. Chronic stable medical condition include dementia, hypertension, hyperlipidemia. patient lives at [facility]. Does use a walker. Patient presents with lower abdominal discomfort feeling of gas. Diet. Last bowel movement was yesterday. Normally has a bowel movement every day. Also nausea vomiting today. [place] bloated in the abdomen. [address] scan of the abdomen showed dilated transverse colon with a focal transition point. Involving the left descending colon. With some short segment of circumferential wall thickening. Patient is NPO. February 22: I saw the patient this morning. Was pending colonoscopy. Later underwent the same by Dr. Domitila Staley. Distal transverse colon circumferential ulcerated mass with significant luminal narrowing. Scope could not be passed through. Multiple biopsies were done. Dr. Staley discussed this with the patient and the family. Patient kept on clear liquids. Surgery on the case. Patient has some left abdominal discomfort. February 23: Patient seen this morning. Pending surgical intervention by Dr. Patel. NPO. IV fluids.. February 24: Yesterday patient underwent laparotomy followed by left hemicolectomy for a partially obstructing colon mass. Midline incision with OptiForm. Some looking at the lower end. Patient is n.p.o. except ice chips. Did pass some flatus. No nausea vomiting. No pain. February 25: Patient on clear liquids. Some abdominal pain. Minimal flatus. Family at the bedside. Told the patient to be up in a chair. Getting IV fluids. February 26: Last night patient started vomiting. Abdominal x-ray showed a small bowel dilatation,/obstruction. NG tube was placed. Significant output. No flatus. Patient is put on a Catapres patch for his blood pressure. Getting LR. Awake tired February 27: Continues to have NG tube to suction. Patient seen this morning. Less abdominal pain. Minimal flatus. Blood pressure better with the Catapres patch. Awake, tired. February 28: NG tube to suction continuous. Abdominal x-ray still shows some small bowel dilatation. TPN lipids ordered./PICC line for the same. Significant output through the NG tube Active Medications Acetaminophen (Acetaminophen Tab 325 Mg Tab) 650 mg PO Q6HR PRN PRN Reason: Mild Pain or Fever > 100.5 Albuterol/Ipratropium (Ipratropium-Albuterol 3 Ml Neb) 3 ml INHALATION RT-QID PRN PRN Reason: Shortness Of Breath Or Wheezing Aspirin (Aspirin 325 Mg Tab) 325 mg PO [facility] Last Admin: 02/27/25 21:22 Dose: 325 mg Atorvastatin Calcium (Atorvastatin 10 Mg Tab) 10 mg PO [facility] Last Admin: 02/27/25 21:22 Dose: 10 mg Bisacodyl (Bisacodyl 10 Mg Supp) 10 mg RECTAL DAILY [facility] Last Admin: 02/28/25 08:29 Dose: 10 mg Buspirone HCl (Buspirone Hcl 5 Mg Tab) 15 mg PO BID [facility] Last Admin: 02/28/25 08:29 Dose: 15 mg Clonidine HCl (Clonidine 0.2 Mg/24hr Patch) 1 patch TRANSDERM Q7D [facility] Cyanocobalamin (Cyanocobalamin 1,000 Mcg/Ml 1 Ml Vial) 1,000 mcg SQ QMONTHLY [facility] Last Admin: 02/21/25 09:26 Dose: 1,000 mcg Divalproex Sodium (Divalproex Er 250 Mg Tab.Er.24h) 250 mg PO [facility] Last Admin: 02/27/25 21:22 Dose: 250 mg Heparin Sodium (Porcine) (Heparin Sodium,Porcine 5,000 Unit/Ml 1 Ml Vial) 5,000 unit SQ Q12HR [facility] Last Admin: 02/28/25 08:29 Dose: 5,000 unit Lactated Ringer's (Lactated Ringers) 1,000 mls @ 75 mls/hr IV .[id number] [facility] Last Admin: 02/28/25 08:31 Dose: 100 mls/hr Piperacillin Sod/Tazobactam (Sod 3.375 gm/ Sodium Chloride) 100 mls @ 25 mls/hr IVPB Q8H [facility]; Protocol Last Admin: 02/28/25 12:36 Dose: 25 mls/hr Acetaminophen 1,000 mg/ IV (Solution) 100 mls @ 400 mls/hr IVPB Q6H [facility] Stop: 03/01/25 10:14 Last Admin: 02/28/25 17:24 Dose: 400 mls/hr Metoclopramide HCl (Metoclopramide 5 Mg/Ml 2 Ml Vial) 5 mg IVP Q8HR [facility] Last Admin: 02/28/25 17:25 Dose: 5 mg Morphine Sulfate (Morphine Sulfate 2 Mg/Ml Syringe) 2 mg IVP Q4HR PRN PRN Reason: Pain/Discomfort Last Admin: 02/26/25 11:03 Dose: 2 mg Naloxone HCl (Naloxone 0.4 Mg/Ml 1 Ml Vial) 0.2 mg IV Q2M PRN PRN Reason: Opioid Reversal Ondansetron HCl (Ondansetron 4 Mg/2 Ml Vial) 4 mg IVP Q8HR PRN PRN Reason: Nausea And Vomiting Last Admin: 02/26/25 08:11 Dose: 4 mg Pantoprazole Sodium (Pantoprazole 40 Mg/10 Ml Vial) 40 mg IVP DAILY [facility] Last Admin: 02/28/25 10:38 Dose: 40 mg Tamsulosin HCl (Tamsulosin 0.4 Mg Cap.Er.24h) 0.4 mg PO PC-BRKFST [facility] Last Admin: 02/28/25 08:29 Dose: 0.4 mg Trazodone HCl (Trazodone Hcl 50 Mg Tab) 50 mg PO HS [facility] Last Admin: 02/27/25 21:22 Dose: 50 mg Social history: Lives at [facility] [place] [facility]. Uses a walker. Legal guardian Liset Per social work. On examination: VITAL SIGNS: 98.2, 53, 17, 132/77, 98% 2 L GENERAL APPEARANCE: Laying in bed, tired HEENT: Normal external appearance of nose and ear. Oral cavity dry mucous membrane. NG tube to suction EYES: Pupils equal. Conjunctiva normal. NECK: JVD not raised. Mass not palpable. RESPIRATORY: Respiratory effort normal. Lungs decreased breath sounds CARDIOVASCULAR: First and second sounds normal. No edema. ABDOMEN: Soft. Slight distention and tenderness.. Midline incision with Opt iForm. Some blood soaking of the distal end.. Liver and spleen not palpable. No tenderness. No mass palpable. PSYCHIATRY: Able to answer simple questions. Mood affect normal. MUSCULOSKELETAL:No Clubbing/cyanosis;muscles-grossly intact. OA INVESTIGATIONS, reviewed in the clinical context: February 28: White count 10.9 hemoglobin 10.9 potassium 3.3 creatinine 1.21 Abdominal x-ray [February 26] small bowel dilatation February 22: White count 9.1 hemoglobin 10.9 platelets 218 potassium 3.9 creatinine 1.5 February 20, 2025: White count 10.0 hemoglobin 12.5 platelets 244 sodium 142 potassium 4.2 BUN 33 creatinine 1.44 UA: Protein 1+. Ketone trace. Leukoesterase large. WBC 129 EKG tracing personally reviewed by me-normal sinus rhythm. Rate 74. CT abdomen pelvis: Mildly dilated transverse colon with focal transition point involving the left descending colon with some short segment circumferential wall thickening and surrounding fat stranding with tiny adjacent lymph nodes. Diverticula in this region. Distal abdominal aortic aneurysm 4.4 cm. Punctate nonobstructive left renal calculus. Assessment plan: - Acute partial bowel obstruction involving the left descending colon with some short segment circumferential wall thickening and surrounding fat stranding.: On presentation . -Distal transverse colon circumferential ulcerated mass with significant luminal narrowing endoscope could not be passed through the mass, status post multiple biopsies followed by tattooing with Opal ink: New diagnosis Left hemicolectomy by Dr. Patel on February 23. February 27: NG tube to suction remains. Decreased tenderness and decreased distention of the abdomen. Minimal flatus -Postop small bowel obstruction: Slow to respond NG tube to suction remains in place -Colonic diverticulosis. Doubt diverticulitis. -Essential hypertension, Amlodipine. Losartan: P.o. meds on hold Catapres patch 0.2 - depression, Trazodone. BuSpar. - For nutritional support start TPN lipids. 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 Continue NG tube suction. Past Medical History Past Medical History: Dementia, Hyperlipidemia, Hypertension Additional Past Medical History / Comment(s): abdominal aortic aneurysm History of Any Multi-Drug Resistant Organisms: None Reported Past Surgical History: Heart Catheterization With Stent, Tonsillectomy Past Anesthesia/Blood Transfusion Reactions: Unable to Obtain Date of Last Stent Placement:: Unknown Past Psychological History: No Psychological Hx Reported Smoking Status: Former smoker Past Alcohol Use History: None Reported Past Drug Use History: None Reported
[2025-02-28 18:58] LABS: INR 1.1 (<1.2); Prothrombin Time 12.3 sec (10.0-12.5)
[2025-02-28] MEDS ORDERED: cloNIDine 0.3 MG/24HR PATCH TRANSDERM SCH (19:00)
[2025-02-28] MEDS: cloNIDine 0.2 MG/24HR PATCH TRANSDERM SCH (20:46)
[2025-02-28] MEDS: cloNIDine 0.3 MG/24HR PATCH TRANSDERM SCH (23:20)
[2025-03-01 06:00] LABS: Ionized Calcium 4.8 mg/dL (4.5-5.3)
[2025-03-01 06:03] LABS: Eosinophils # (A) 0.65 10*3/uL (0.04-0.35); Eosinophils % (A) 6.5 %; HCT 34.1 % (39.6-50.0); HGB 10.6 g/dL (13.0-17.0); Lymphocytes # (A) 1.61 10*3/uL (0.90-5.00); Lymphocytes % (A) 16.1 %; MCH 30.3 pg (27.0-32.0); MCHC 31.1 g/dL (32.0-37.0); MCV 97.4 fL (80.0-97.0); Mean Platelet Volume 10.6 fL (9.5-12.2); Monocytes # (A) 0.88 10*3/uL (0.20-1.00); Monocytes % (A) 8.8 %; Neutrophils # (A) 6.71 10*3/uL (1.80-7.70); Neutrophils % (A) 67.3 %; Platelet Count 269 10*3/uL (140-440); RDW 12.3 % (11.5-14.5); WBC 9.98 10*3/uL (4.50-10.00)
[2025-03-01 06:09] LABS: ALT 11 U/L (4-49); AST 17 U/L (17-59); African American GFR (CKD) 65 (>60 ml/min/1.73 sqM); Alkaline Phosphatase 58 U/L (38-126); Anion Gap 8 mmol/L; Blood Urea Nitrogen 36 mg/dL (9-20); Calcium 8.9 mg/dL (8.4-10.2); Carbon Dioxide 33 mmol/L (22-30); Chloride 105 mmol/L (98-107); Globulin 2.9 g/dL; Glucose 86 mg/dL (74-99); Magnesium 2.3 mg/dL (1.6-2.3); Non-African American GFR(CKD) 57 (>60 ml/min/1.73 sqM); Phosphorus 3.4 mg/dL (2.5-4.5); Potassium 3.3 mmol/L (3.5-5.1); Sodium 146 mmol/L (137-145); Total Bilirubin 1.2 mg/dL (0.2-1.3); Total Protein 5.9 g/dL (6.3-8.2)
[2025-03-01] MEDS: POTASSIUM CHLORIDE ER 20 MEQ TAB.ER PO STA (11:42)
--- NOTE | 2025-03-01 12:58 | P.PN ---
Subjective Progress Note Date: 03/01/25 SURGICAL PROGRESS NOTE CHIEF COMPLAINT: Colon mass HISTORY OF PRESENT ILLNESS: Patient is postop day #6 status post exploratory laparotomy with a left hemicolectomy. Patient does report some mild abdominal discomfort on the left side of the abdomen. Denies any nausea. NG tube 750 throughout the day yesterday and 500 out this morning. He did have bowel movements. WBC normal at 9.98 potassium 3.3. Magnesium level 2.3. Afebrile. Elevated BP PHYSICAL EXAM: VITAL SIGNS: Reviewed. GENERAL: Well-developed in no acute distress. ABDOMEN: Soft. Nontender. Abdominal midline incision clean dry and intact NEUROLOGIC: awake and alert ASSESSMENT: 1. Partially obstructing left colon mass 2. Postoperative ileus can be an expected finding 3. Possible developing pneumonia could be contributing to the leukocytosis 4. 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 -Repeat CBC and BMP in a.m. -Continue to correct potassium. -Continue IV fluids at decreased rate of 75 mL/h -Medicine service has ordered TPN and PICC line -Continue antibiotics -Encourage patient to increase activity level. -Encourage patient to use incentive spirometer -DVT prophylaxis subcu heparin -GI prophylaxis Protonix Physician Process Automation Engineer note has been reviewed by physician. Signing provider agrees with the documented findings, assessment, and plan of care. Attestation Patient seen and examined at bedside. Mild expected abdominal pain. Leukocytosis resolved. Abdominal x-ray performed today with finding of no small bowel dilation and no air-fluid levels. Nasogastric tube removed. Recommend correcting potassium. We will start the patient on trial of clear liquid diet. Akash Patel DO Objective - Vital Signs Vital signs: Vital Signs Temp 98.0 F 03/01/25 07:19 Pulse 54 L 03/01/25 07:30 Resp 16 03/01/25 07:19 BP 173/73 03/01/25 07:19 Pulse Ox 96 03/01/25 07:19 FiO2 Intake & Output 02/28/25 03/01/25 03/01/25 18:59 06:59 18:59 Output Total 1500 Balance -1500 Weight 104.326 kg Output: Gastric Drainage 600 Urine 900 Uretheral (Ivy) 900 Other: Voiding Method Diaper Indwelling Catheter Diaper # Voids 1 2 # Bowel Movements 1 - Labs CBC & Chem 7: 03/01/25 05:25 03/01/25 05:25 Labs: Abnormal Lab Results - Last 24 Hours (Table) 03/01/25 03/01/25 Range/Units 05:25 05:25 RBC 3.50 L (4.40-5.60) 10*6/uL Hgb 10.6 L (13.0-17.0) g/dL Hct 34.1 L (39.6-50.0) % MCV 97.4 H (80.0-97.0) fL MCHC 31.1 L (32.0-37.0) g/dL Eosinophils # 0.65 H (0.04-0.35) 10*3/uL Sodium 146 H (137-145) mmol/L Potassium 3.3 L (3.5-5.1) mmol/L Carbon Dioxide 33 H (22-30) mmol/L BUN 36 H (9-20) mg/dL Total Protein 5.9 L (6.3-8.2) g/dL Albumin 3.0 L (3.5-5.0) g/dL
--- NOTE | 2025-03-01 13:06 | XR ---
EXAMINATION TYPE: XR abdomen 2V DATE OF EXAM: 03/01/2025 COMPARISON: NONE HISTORY: Pain TECHNIQUE: Upright and supine views of the abdomen were obtained. FINDINGS: Interval retraction of enteric tube with distal tip at the GE junction and sidehole in the distal eso phagus. Small bowel demonstrates no evidence for dilatation or air fluid levels. Gas identified within nondilated colon. Midline skin andrea identified. No convincing evidence for pneumoperitoneum. No unusual calcifications. Cardiomegaly. The osseous structures are intact. Vascular sclerosis. IMPRESSION: 1. Interval retraction of enteric tube with distal tip at the GE junction. Recommend advancement 10 cm. 2. No dilated small bowel or air-fluid levels identified. [facility], , 03/01/2025 1:04 PM
[2025-03-01] MEDS: [UNRECOGNIZED DRUG - REMARK] IV SCH (14:55)
--- NOTE | 2025-03-01 16:54 | P.PN ---
Progress Note - Text Progress Note Date: 03/01/25 Chief Complaint: Abdominal distention 79-year-old male- patient, follows with visiting physician Dr. Cortés. Chronic stable medical condition include dementia, hypertension, hyperlipidemia. patient lives at [facility]. Does use a walker. Patient presents with lower abdominal discomfort feeling of gas. Diet. Last bowel movement was yesterday. Normally has a bowel movement every day. Also nausea vomiting today. [place] bloated in the abdomen. [address] scan of the abdomen showed dilated transverse colon with a focal transition point. Involving the left descending colon. With some short segment of circumferential wall thickening. Patient is NPO. February 22: I saw the patient this morning. Was pending colonoscopy. Later underwent the same by Dr. Domitila Staley. Distal transverse colon circumferential ulcerated mass with significant luminal narrowing. Scope could not be passed through. Multiple biopsies were done. Dr. Staley discussed this with the patient and the family. Patient kept on clear liquids. Surgery on the case. Patient has some left abdominal discomfort. February 23: Patient seen this morning. Pending surgical intervention by Dr. Patel. NPO. IV fluids.. February 24: Yesterday patient underwent laparotomy followed by left hemicolectomy for a partially obstructing colon mass. Midline incision with OptiForm. Some looking at the lower end. Patient is n.p.o. except ice chips. Did pass some flatus. No nausea vomiting. No pain. February 25: Patient on clear liquids. Some abdominal pain. Minimal flatus. Family at the bedside. Told the patient to be up in a chair. Getting IV fluids. February 26: Last night patient started vomiting. Abdominal x-ray showed a small bowel dilatation,/obstruction. NG tube was placed. Significant output. No flatus. Patient is put on a Catapres patch for his blood pressure. Getting LR. Awake tired February 15: Continues to have NG tube to suction. Patient seen this morning. Less abdominal pain. Minimal flatus. Blood pressure better with the Catapres patch. Awake, tired. February 28: NG tube to suction continuous. Abdominal x-ray still shows some small bowel dilatation. TPN lipids ordered./PICC line for the same. Significant output through the NG tube March 01: NG tube remains to suction. 750 cc in the 12 hours overnight. Patient did pass some flatus. Abdominal x-ray shows no dilated small bowel Aries fluid levels. Abdomen has tenderness but less distended. Getting TPN lipids. Via PICC line in the left arm Active Medications Acetaminophen (Acetaminophen Tab 325 Mg Tab) 650 mg PO Q6HR PRN PRN Reason: Mild Pain or Fever > 100.5 Albuterol/Ipratropium (Ipratropium-Albuterol 3 Ml Neb) 3 ml INHALATION RT-QID PRN PRN Reason: Shortness Of Breath Or Wheezing Aspirin (Aspirin 325 Mg Tab) 325 mg PO [facility] Last Admin: 02/28/25 19:51 Dose: 325 mg Atorvastatin Calcium (Atorvastatin 10 Mg Tab) 10 mg PO [facility] Last Admin: 02/28/25 19:52 Dose: 10 mg Bisacodyl (Bisacodyl 10 Mg Supp) 10 mg RECTAL DAILY [facility] Last Admin: 03/01/25 08:20 Dose: 10 mg Buspirone HCl (Buspirone Hcl 5 Mg Tab) 15 mg PO BID [facility] Last Admin: 03/01/25 08:29 Dose: 15 mg Clonidine HCl (Clonidine 0.3 Mg/24hr Patch) 1 patch TRANSDERM Q7D [facility] Last Admin: 02/28/25 23:20 Dose: 1 patch Cyanocobalamin (Cyanocobalamin 1,000 Mcg/Ml 1 Ml Vial) 1,000 mcg SQ QMONTHLY [facility] Last Admin: 02/21/25 09:26 Dose: 1,000 mcg Divalproex Sodium (Divalproex Er 250 Mg Tab.Er.24h) 250 mg PO [facility] Last Admin: 02/28/25 19:52 Dose: 250 mg Heparin Sodium (Porcine) (Heparin Sodium,Porcine 5,000 Unit/Ml 1 Ml Vial) 5,000 unit SQ Q12HR [facility] Last Admin: 03/01/25 08:20 Dose: 5,000 unit Lactated Ringer's (Lactated Ringers) 1,000 mls @ 75 mls/hr IV .[id number] [facility] Last Admin: 03/01/25 11:43 Dose: 75 mls/hr Piperacillin Sod/Tazobactam (Sod 3.375 gm/ Sodium Chloride) 100 mls @ 25 mls/hr IVPB Q8H [facility]; Protocol Last Admin: 03/01/25 14:10 Dose: 25 mls/hr Parenteral Vitamin Supplement 10 ml/ Zinc/Copper/Manganese/Selenium 1 ml/ Magnesium Sulfate 0.5 gm/ Calcium Gluconate 1 gm/ Potassium Phosphate 15 mmol/ Amino Acids /Dextrose 1,027 mls @ 30 mls/hr IV .Q24H [facility] Stop: 03/02/25 12:59 Last Admin: 03/01/25 14:55 Dose: 30 mls/hr Fat Emulsion Intravenous 250 (ml/ IV Solution) 250 mls @ 21 mls/hr IV Q72H [facility] Parenteral Vitamin Supplement 10 ml/ Zinc/Copper/Manganese/Selenium 1 ml/ Magnesium Sulfate 0.5 gm/ Calcium Gluconate 1 gm/ Potassium Phosphate 15 mmol/ Amino Acids /Dextrose 1,027 mls @ 50 mls/hr IV .[id number] [facility] Metoclopramide HCl (Metoclopramide 5 Mg/Ml 2 Ml Vial) 5 mg IVP Q8HR [facility] Last Admin: 03/01/25 08:18 Dose: 5 mg Morphine Sulfate (Morphine Sulfate 2 Mg/Ml Syringe) 2 mg IVP Q4HR PRN PRN Reason: Pain/Discomfort Last Admin: 02/26/25 11:03 Dose: 2 mg Naloxone HCl (Naloxone 0.4 Mg/Ml 1 Ml Vial) 0.2 mg IV Q2M PRN PRN Reason: Opioid Reversal Ondansetron HCl (Ondansetron 4 Mg/2 Ml Vial) 4 mg IVP Q8HR PRN PRN Reason: Nausea And Vomiting Last Admin: 02/26/25 08:11 Dose: 4 mg Pantoprazole Sodium (Pantoprazole 40 Mg/10 Ml Vial) 40 mg IVP DAILY [facility] Last Admin: 03/01/25 08:19 Dose: 40 mg Tamsulosin HCl (Tamsulosin 0.4 Mg Cap.Er.24h) 0.4 mg PO PC-BRKFST [facility] Last Admin: 03/01/25 08:18 Dose: 0.4 mg Trazodone HCl (Trazodone Hcl 50 Mg Tab) 50 mg PO HS [facility] Last Admin: 02/28/25 19:51 Dose: 50 mg Social history: Lives at [facility]. Uses a walker. Legal guardian Liset Per social work. On examination: VITAL SIGNS: 98.2, 48, 16, 165 x 76, 94% 2 L GENERAL APPEARANCE: Laying in bed, tired HEENT: Normal external appearance of nose and ear. Oral cavity dry mucous membrane. NG tube to suction EYES: Pupils equal. Conjunctiva normal. NECK: JVD not raised. Mass not palpable. RESPIRATORY: Respiratory effort normal. Lungs decreased breath sounds CARDIOVASCULAR: First and second sounds normal. No edema. ABDOMEN: Soft. Some distention and tenderness.. Midline incision with OptiForm. Some blood soaking of the distal end.. Liver and spleen not palpable. No tenderness. No mass palpable. PSYCHIATRY: Able to answer simple questions. Mood affect normal. MUSCULOSKELETAL:No Clubbing/cyanosis;muscles-grossly intact. OA INVESTIGATIONS, reviewed in the clinical context: March 01: White count 9.9 hemoglobin 10.6 sodium 146 potassium 3.3 creatinine 1.2 February 28: White count 10.9 hemoglobin 10.9 potassium 3.3 creatinine 1.21 Abdominal x-ray [February 26] small bowel dilatation February 22: White count 9.1 hemoglobin 10.9 platelets 218 potassium 3.9 creatinine 1.5 February 20, 2025: White count 10.0 hemoglobin 12.5 platelets 244 sodium 142 potassium 4.2 BUN 33 creatinine 1.44 UA: Protein 1+. Ketone trace. Leukoesterase large. WBC 129 EKG tracing personally reviewed by me-normal sinus rhythm. Rate 74. CT abdomen pelvis: Mildly dilated transverse colon with focal transition point involving the left descending colon with some short segment circumferential wall thickening and surrounding fat stranding with tiny adjacent lymph nodes. Diverticula in this region. Distal abdominal aortic aneurysm 4.4 cm. Punctate nonobstructive left renal calculus. Assessment plan: - Acute partial bowel obstruction involving the left descending colon with some short segment circumferential wall thickening and surrounding fat stranding.: On presentation . -Distal transverse colon circumferential ulcerated mass with significant luminal narrowing endoscope could not be passed through the mass, status post multiple biopsies followed by tattooing with Opal ink: New diagnosis Left hemicolectomy by Dr. Patel on February 23. February 27: NG tube to suction remains. Decreased tenderness and decreased distention of the abdomen. Minimal flatus -Postop small bowel obstruction: Slow radiological improvement NG tube to suction remains in place. 750 cc obtaining 12-hour shift overnight -Colonic diverticulosis. Doubt diverticulitis. -Essential hypertension, Amlodipine. Losartan: P.o. meds on hold Catapres patch 0.3 - depression, Trazodone. BuSpar. - Nutrition: TPN lipids via PICC line - For nutritional support start TPN lipids. 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 Still significant output. Some radiological improvement. Passing flatus. TPN lipids. Past Medical History Past Medical History: Dementia, Hyperlipidemia, Hypertension Additional Past Medical History / Comment(s): abdominal aortic aneurysm History of Any Multi-Drug Resistant Organisms: None Reported Past Surgical History: Heart Catheterization With Stent, Tonsillectomy Past Anesthesia/Blood Transfusion Reactions: Unable to Obtain Date of Last Stent Placement:: Unknown Past Psychological History: No Psychological Hx Reported Smoking Status: Former smoker Past Alcohol Use History: None Reported Past Drug Use History: None Reported
[2025-03-01] MEDS: FAT EMULSION 20% 250 ML in EMPTY BAG 1 BAG IV SCH (20:45)
[2025-03-02 00:03] LABS: Glucose,Whole Blood 126 mg/dL (70-110)
[2025-03-02 05:45] LABS: African American GFR (CKD) 72 (>60 ml/min/1.73 sqM); Anion Gap 5 mmol/L; Blood Urea Nitrogen 28 mg/dL (9-20); Calcium 8.7 mg/dL (8.4-10.2); Carbon Dioxide 30 mmol/L (22-30); Chloride 106 mmol/L (98-107); Glucose 125 mg/dL (74-99); Non-African American GFR(CKD) 62 (>60 ml/min/1.73 sqM); Phosphorus 2.8 mg/dL (2.5-4.5); Potassium 3.4 mmol/L (3.5-5.1); Sodium 141 mmol/L (137-145)
[2025-03-02 06:20] LABS: Glucose,Whole Blood 146 mg/dL (70-110)
[2025-03-02] MEDS: POTASSIUM CHLORIDE ER 20 MEQ TAB.ER PO ONE (09:16)
[2025-03-02 11:34] LABS: Glucose,Whole Blood 194 mg/dL (70-110)
--- NOTE | 2025-03-02 12:21 | P.PN ---
Progress Note - Text Progress Note Date: 03/02/25 HISTORY OF PRESENT ILLNESS: Patient is postop day #7 status post exploratory laparotomy with a left hemicolectomy. No acute events overnight. Having bowel function. Denies pain. Denies nausea and vomiting. PHYSICAL EXAM: VITAL SIGNS: Reviewed. GENERAL: Well-developed in no acute distress. ABDOMEN: Soft. Nontender. Abdominal midline incision clean dry and intact NEUROLOGIC: awake and alert ASSESSMENT: 1. Partially obstructing left colon mass 2. Postoperative ileus can be an expected finding 3. Possible developing pneumonia could be contributing to the leukocytosis 4. 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 -Encourage patient to use incentive spirometer -DVT prophylaxis subcu heparin -GI prophylaxis Protonix Chaka Jones [facility] [phone]
[2025-03-02] MEDS ORDERED: [UNRECOGNIZED DRUG - REMARK] IV SCH (13:00)
[2025-03-02 16:43] LABS: Glucose,Whole Blood 136 mg/dL (70-110)
--- NOTE | 2025-03-02 17:42 | P.PN ---
Progress Note - Text Progress Note Date: 03/02/25 Chief Complaint: Abdominal distention 79-year-old male- patient, follows with visiting physician Dr. Cortés. Chronic stable medical condition include dementia, hypertension, hyperlipidemia. patient lives at [facility]. Does use a walker. Patient presents with lower abdominal discomfort feeling of gas. Diet. Last bowel movement was yesterday. Normally has a bowel movement every day. Also nausea vomiting today. [place] bloated in the abdomen. [address] scan of the abdomen showed dilated transverse colon with a focal transition point. Involving the left descending colon. With some short segment of circumferential wall thickening. Patient is NPO. February 22: I saw the patient this morning. Was pending colonoscopy. Later underwent the same by Dr. Domitila Staley. Distal transverse colon circumferential ulcerated mass with significant luminal narrowing. Scope could not be passed through. Multiple biopsies were done. Dr. Staley discussed this with the patient and the family. Patient kept on clear liquids. Surgery on the case. Patient has some left abdominal discomfort. February 23: Patient seen this morning. Pending surgical intervention by Dr. Patel. NPO. IV fluids.. February 24: Yesterday patient underwent laparotomy followed by left hemicolectomy for a partially obstructing colon mass. Midline incision with OptiForm. Some looking at the lower end. Patient is n.p.o. except ice chips. Did pass some flatus. No nausea vomiting. No pain. February 25: Patient on clear liquids. Some abdominal pain. Minimal flatus. Family at the bedside. Told the patient to be up in a chair. Getting IV fluids. February 26: Last night patient started vomiting. Abdominal x-ray showed a small bowel dilatation,/obstruction. NG tube was placed. Significant output. No flatus. Patient is put on a Catapres patch for his blood pressure. Getting LR. Awake tired February 15: Continues to have NG tube to suction. Patient seen this morning. Less abdominal pain. Minimal flatus. Blood pressure better with the Catapres patch. Awake, tired. February 16: NG tube to suction continuous. Abdominal x-ray still shows some small bowel dilatation. TPN lipids ordered./PICC line for the same. Significant output through the NG tube February 17: NG tube remains to suction. 750 cc in the 12 hours overnight. Patient did pass some flatus. Abdominal x-ray shows no dilated small bowel Aries fluid levels. Abdomen has tenderness but less distended. Getting TPN lipids. Via PICC line in the left arm March 02: Patient had his NG tube removed yesterday evening. Had a bowel movement yesterday. Was getting TPN lipids. Early today given clear liquids. Per surgery advance to full liquids for supper. Abdomen is much softer with decreased tenderness. Active Medications Acetaminophen (Acetaminophen Tab 325 Mg Tab) 650 mg PO Q6HR PRN PRN Reason: Mild Pain or Fever > 100.5 Albuterol/Ipratropium (Ipratropium-Albuterol 3 Ml Neb) 3 ml INHALATION RT-QID PRN PRN Reason: Shortness Of Breath Or Wheezing Aspirin (Aspirin 325 Mg Tab) 325 mg PO [facility] Last Admin: 03/01/25 20:40 Dose: 325 mg Atorvastatin Calcium (Atorvastatin 10 Mg Tab) 10 mg PO [facility] Last Admin: 03/01/25 20:40 Dose: 10 mg Bisacodyl (Bisacodyl 10 Mg Supp) 10 mg RECTAL DAILY [facility] Last Admin: 03/02/25 08:38 Dose: 10 mg Buspirone HCl (Buspirone Hcl 5 Mg Tab) 15 mg PO BID [facility] Last Admin: 03/02/25 08:37 Dose: 15 mg Clonidine HCl (Clonidine 0.3 Mg/24hr Patch) 1 patch TRANSDERM Q7D [facility] Last Admin: 02/28/25 23:20 Dose: 1 patch Cyanocobalamin (Cyanocobalamin 1,000 Mcg/Ml 1 Ml Vial) 1,000 mcg SQ QMONTHLY [facility] Last Admin: 02/21/25 09:26 Dose: 1,000 mcg Divalproex Sodium (Divalproex Er 250 Mg Tab.Er.24h) 250 mg PO [facility] Last Admin: 03/01/25 20:40 Dose: 250 mg Heparin Sodium (Porcine) (Heparin Sodium,Porcine 5,000 Unit/Ml 1 Ml Vial) 5,000 unit SQ Q12HR [facility] Last Admin: 03/02/25 08:38 Dose: 5,000 unit Lactated Ringer's (Lactated Ringers) 1,000 mls @ 75 mls/hr IV .[id number] [facility] Last Admin: 03/02/25 02:16 Dose: 75 mls/hr Piperacillin Sod/Tazobactam (Sod 3.375 gm/ Sodium Chloride) 100 mls @ 25 mls/hr IVPB Q8H [facility]; Protocol Last Admin: 03/02/25 12:22 Dose: 25 mls/hr Fat Emulsion Intravenous 250 (ml/ IV Solution) 250 mls @ 21 mls/hr IV Q72H [facility] Last Admin: 03/01/25 20:45 Dose: 21 mls/hr Parenteral Vitamin Supplement 10 ml/ Zinc/Copper/Manganese/Selenium 1 ml/ Amino Ac/Electrol/Dextrose/Calcium 1,011 mls @ 50 mls/hr IV .[id number] [facility] Metoclopramide HCl (Metoclopramide 5 Mg/Ml 2 Ml Vial) 5 mg IVP Q8HR [facility] Last Admin: 03/02/25 16:13 Dose: Not Given Morphine Sulfate (Morphine Sulfate 2 Mg/Ml Syringe) 2 mg IVP Q4HR PRN PRN Reason: Pain/Discomfort Last Admin: 03/02/25 14:44 Dose: 2 mg Naloxone HCl (Naloxone 0.4 Mg/Ml 1 Ml Vial) 0.2 mg IV Q2M PRN PRN Reason: Opioid Reversal Ondansetron HCl (Ondansetron 4 Mg/2 Ml Vial) 4 mg IVP Q8HR PRN PRN Reason: Nausea And Vomiting Last Admin: 02/26/25 08:11 Dose: 4 mg Pantoprazole Sodium (Pantoprazole 40 Mg/10 Ml Vial) 40 mg IVP DAILY [facility] Last Admin: 03/02/25 08:37 Dose: 40 mg Tamsulosin HCl (Tamsulosin 0.4 Mg Cap.Er.24h) 0.4 mg PO PC-BRKFST [facility] Last Admin: 03/02/25 08:38 Dose: 0.4 mg Trazodone HCl (Trazodone Hcl 50 Mg Tab) 50 mg PO HS [facility] Last Admin: 03/01/25 20:40 Dose: 50 mg Social history: Lives at [facility]. Uses a walker. Legal guardian Liset Per social work. On examination: VITAL SIGNS: 98.2, 62, 16, 174 x 69, 95% 2 L GENERAL APPEARANCE: Laying in bed, awake, a bit tired HEENT: Normal external appearance of nose and ear. Oral cavity dry mucous mem brane. NG tube has been removed EYES: Pupils equal. Conjunctiva normal. NECK: JVD not raised. Mass not palpable. RESPIRATORY: Respiratory effort normal. Lungs decreased breath sounds CARDIOVASCULAR: First and second sounds normal. No edema. ABDOMEN: Soft. Much improved distention and tenderness.. Midline incision with OptiForm. Some blood soaking of the distal end.. Liver and spleen not pa lpable. No tenderness. No mass palpable. PSYCHIATRY: Able to answer simple questions. Mood affect normal. MUSCULOSKELETAL:No Clubbing/cyanosis;muscles-grossly intact. OA INVESTIGATIONS, reviewed in the clinical context: March 02: Potassium 3.4 creatinine 1.11 March 01: White count 9.9 hemoglobin 10.6 sodium 146 potassium 3.3 creatinine 1.2 February 28: White count 10.9 hemoglobin 10.9 potassium 3.3 creatinine 1.21 Abdominal x-ray [February 26] small bowel dilatation February 22: White count 9.1 hemoglobin 10.9 platelets 218 potassium 3.9 creatinine 1.5 February 20, 2025: White count 10.0 hemoglobin 12.5 platelets 244 sodium 142 potassium 4.2 BUN 33 creatinine 1.44 UA: Protein 1+. Ketone trace. Leukoesterase large. WBC 129 EKG tracing personally reviewed by me-normal sinus rhythm. Rate 74. CT abdomen pelvis: Mildly dilated transverse colon with focal transition point involving the left descending colon with some short segment circumferential wall thickening and surrounding fat stranding with tiny adjacent lymph nodes. Diverticula in this region. Distal abdominal aortic aneurysm 4.4 cm. Punctate nonobstructive left renal calculus. Assessment plan: - Acute partial bowel obstruction involving the left descending colon with some short segment circumferential wall thickening and surrounding fat stranding.: On presentation . -Distal transverse colon circumferential ulcerated mass with significant luminal narrowing endoscope could not be passed through the mass, status post multiple biopsies followed by tattooing with Opal ink: New diagnosis Left hemicolectomy by Dr. Patel on February 23. -Postop small bowel obstruction: Improved March 02: NG tube was removed. Had a bowel movement yesterday. Tolerated clear liquids this morning. For full liquids this evening. -Colonic diverticulosis. Doubt diverticulitis. -Essential hypertension, Amlodipine. Losartan: P.o. meds on hold Catapres patch 0.3 - depression, Trazodone. BuSpar. - Nutrition: TPN lipids via PICC line - For nutritional support start TPN lipids. 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 Will keep on Catapres patch. If doing well can be switched over back to oral blood pressure medications. Past Medical History Past Medical History: Dementia, Hyperlipidemia, Hypertension Additional Past Medical History / Comment(s): abdominal aortic aneurysm History of Any Multi-Drug Resistant Organisms: None Reported Past Surgical History: Heart Catheterization With Stent, Tonsillectomy Past Anesthesia/Blood Transfusion Reactions: Unable to Obtain Date of Last Stent Placement:: Unknown Past Psychological History: No Psychological Hx Reported Smoking Status: Former smoker Past Alcohol Use History: None Reported Past Drug Use History: None Reported
[2025-03-02] MEDS: MVI, ADULT NO.4 WITH VIT K 10 ML, TRACE (CONC-1ML/DOSE) 1 ML in AMINO ACID 5%-D20W+LYTE... IV SCH (18:35)
[2025-03-02] MEDS: amLODIPine 5 MG TAB PO STA (21:43)
[2025-03-03 01:02] LABS: Glucose,Whole Blood 160 mg/dL (70-110)
[2025-03-03 04:40] LABS: Basophils # (A) 0.04 10*3/uL (0.00-0.10); Basophils % (A) 0.4 %; Eosinophils # (A) 0.74 10*3/uL (0.04-0.35); Eosinophils % (A) 7.5 %; HCT 30.4 % (39.6-50.0); HGB 9.8 g/dL (13.0-17.0); Lymphocytes # (A) 1.74 10*3/uL (0.90-5.00); Lymphocytes % (A) 17.6 %; MCH 30.9 pg (27.0-32.0); MCHC 32.2 g/dL (32.0-37.0); MCV 95.9 fL (80.0-97.0); Mean Platelet Volume 10.8 fL (9.5-12.2); Monocytes # (A) 0.77 10*3/uL (0.20-1.00); Monocytes % (A) 7.8 %; Neutrophils # (A) 6.52 10*3/uL (1.80-7.70); Neutrophils % (A) 66.1 %; Platelet Count 260 10*3/uL (140-440); RBC 3.17 10*6/uL (4.40-5.60); RDW 12.3 % (11.5-14.5); WBC 9.87 10*3/uL (4.50-10.00)
[2025-03-03 05:10] LABS: African American GFR (CKD) 89 (>60 ml/min/1.73 sqM); Anion Gap 6 mmol/L; Blood Urea Nitrogen 22 mg/dL (9-20); Calcium 8.4 mg/dL (8.4-10.2); Carbon Dioxide 27 mmol/L (22-30); Chloride 105 mmol/L (98-107); Glucose 155 mg/dL (74-99); Magnesium 1.9 mg/dL (1.6-2.3); Non-African American GFR(CKD) 77 (>60 ml/min/1.73 sqM); Phosphorus 3.1 mg/dL (2.5-4.5); Potassium 3.6 mmol/L (3.5-5.1); Sodium 138 mmol/L (137-145)
[2025-03-03 06:22] LABS: Glucose,Whole Blood 153 mg/dL (70-110)
[2025-03-03 11:40] LABS: Glucose,Whole Blood 182 mg/dL (70-110)
--- NOTE | 2025-03-03 14:09 | P.PN ---
Progress Note - Text Progress Note Date: 03/03/25 HISTORY OF PRESENT ILLNESS: Patient is postop day #8 status post exploratory laparotomy with a left hemicolectomy. No acute events overnight. Having bowel function. Denies pain. Denies nausea and vomiting. PHYSICAL EXAM: VITAL SIGNS: Reviewed. GENERAL: Well-developed in no acute distress. ABDOMEN: Soft. Nontender. Abdominal midline incision clean dry and intact NEUROLOGIC: awake and alert ASSESSMENT: 1. Partially obstructing left colon mass 2. Postoperative ileus can be an expected finding 3. Possible developing pneumonia could be contributing to the leukocytosis 4. 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 -Encourage patient to use incentive spirometer -DVT prophylaxis subcu heparin -GI prophylaxis Protonix Chaka Jones [facility] [phone]
[2025-03-03] MEDS ORDERED: RX INFO: IV CONTRAST WAS GIVEN 1 EACH MISC MISCELLANE PRN (14:45)
--- NOTE | 2025-03-03 14:46 | P.CONS ---
History of Present Illness - Reason for Consult Consult date: 03/03/25 colon cancer Requesting physician: Herman Balderrama - Chief Complaint Abdominal distention - History of Present Illness Mr. Castro is a very pleasant 79-year-old gentleman with multiple comorbidities who is here for abdominal distention and discomfort. Workup in the ER on including CT of the abdomen pelvis revealed mildly distended transverse colon with focal transition point in the descending colon with associated fat stranding, possibly due to colitis. It also revealed a small liver lesion likely a cyst. He underwent colonoscopy on 02/23/2025 which revealed colon mass that was biopsied. Underwent left hemicolectomy on 02/26/2025, final pathology consistent with a 4.5 cm grade 2 adenocarcinoma extending through the muscularis propria into the pericolonic tissue, 1/20 + lymph node (noted that this is possibly due to direct extension of the tumor on pathology report), negative LVI, negative perforation, negative margins. He has been recovering from surgery, however continues to have postop ileus and NG tube in place. We were consulted for positive pathology results. Lives in assisted living, and states he needs assistance for showers and meal preparation. PS ECOG 2. Past Medical History Past Medical History: Dementia, Hyperlipidemia, Hypertension Additional Past Medical History / Comment(s): abdominal aortic aneurysm History of Any Multi-Drug Resistant Organisms: None Reported Past Surgical History: Heart Catheterization With Stent, Tonsillectomy Past Anesthesia/Blood Transfusion Reactions: Unable to Obtain Date of Last Stent Placement:: Unknown Past Psychological History: No Psychological Hx Reported Smoking Status: Former smoker Past Alcohol Use History: None Reported Past Drug Use History: None Reported Medications and Allergies Home Medications Medication Instructions Recorded Confirmed Type Aspirin 325 mg PO HS@199901/19/24 02/21/25 History Divalproex ER [Depakote ER] 250 mg PO HS@199901/19/24 02/21/25 History amLODIPine [Norvasc] 2.5 mg PO DAILY@79901/19/24 02/21/25 History busPIRone HCL 15 mg PO BID@799,199901/19/24 02/21/25 History Losartan Potassium 100 mg PO HS@199904/13/24 02/21/25 History traZODone HCL [Desyrel] 50 mg PO HS@199904/13/24 02/21/25 History Atorvastatin [Lipitor] 10 mg PO HS@199902/21/25 02/21/25 History Tamsulosin [Flomax] 0.4 mg PO DAILY@79902/21/25 02/21/25 History hydroCHLOROthiazide [Hydrodiuril] 25 mg PO DAILY@79902/21/25 02/21/25 History Allergies Allergy/AdvReac Type Severity Reaction Status Date / Time No Known Allergies Allergy Verified 02/21/25 09:15 Physical Exam Vitals: Vital Signs Temp Pulse Resp BP BP Pulse Ox 03/03/25 08:49 96 03/03/25 07:40 54 L 17 03/03/25 07:14 97.7 F 54 L 17 154/70 98 03/03/25 01:10 98.0 F 58 L 17 178/73 96 03/02/25 23:57 60 175/86 03/02/25 21:20 180/76 03/02/25 21:15 66 194/76 03/02/25 19:58 99.1 F 64 17 170/75 97 03/02/25 16:56 62 16 03/02/25 16:13 98.2 F 62 16 174/69 95 03/02/25 14:15 98.3 F 62 18 183/91 96 Intake and Output 03/02/25 03/03/25 03/03/25 22:59 06:59 14:59 Intake Total 1080 Output Total 500 800 Balance -500 280 Intake: Oral 1080 Output: Urine 500 800 Other: Voiding Method Indwelling Catheter External Catheter # Bowel Movements 1 Weight 104.326 kg Patient is in no acute distress. Mucosa moist. No respiratory distress. On NC. Alert and oriented. Results CBC & Chem 7: 03/03/25 04:09 03/03/25 04:06 Labs: Abnormal Lab Results - Last 24 Hours (Table) 03/02/25 03/03/25 03/03/25 Range/Units 16:41 01:00 04:06 RBC (4.40-5.60) 10*6/uL Hgb (13.0-17.0) g/dL Hct (39.6-50.0) % Immature Gran # (0.00-0.04) 10*3/uL Eosinophils # (0.04-0.35) 10*3/uL BUN 22 H (9-20) mg/dL Glucose 155 H (74-99) mg/dL POC Glucose (mg/dL) 136 H 160 H (70-110) mg/dL 03/03/25 03/03/25 03/03/25 Range/Units 04:09 06:21 11:39 RBC 3.17 L (4.40-5.60) 10*6/uL Hgb 9.8 L (13.0-17.0) g/dL Hct 30.4 L (39.6-50.0) % Immature Gran # 0.06 H (0.00-0.04) 10*3/uL Eosinophils # 0.74 H (0.04-0.35) 10*3/uL BUN (9-20) mg/dL Glucose (74-99) mg/dL POC Glucose (mg/dL) 153 H 182 H (70-110) mg/dL CT scan - abdomen: report reviewed CT scan - pelvis: report reviewed Assessment and Plan Assessment: 1. Colon adenocarcinoma 2. Post op ileus 3. Anemia Plan: Mr. Castro is a very pleasant 79-year-old gentleman who is here for abdominal di stention, workup revealed left-sided colon mass status post resection for obstruction, final pathology with a grade 2 invasive adenocarcinoma that extends into the pericolonic tissue with 1/20 positive lymph nodes, pT3N1a. Also with normocytic anemia that slightly decreased postop and SHERIE on presentation that seems to have resolved. Normal LFTs. No signs of metastatic disease on CT AP. - I discussed pathology with the patient. - He has stage III disease with 1 involved lymph node - Adjuvant Xeloda would be considered however he does have multiple comorbidities and PS2 prior to admission, and will need reevaluation of overall condition and performance status once he recovers from surgery before finalizing adjuvant chemotherapy plan - He would also benefit from CT of the chest to complete a staging workup - Will also complete anemia work up. Discussed with patient he is agreeable with the plan. All of his questions were answered.
--- NOTE | 2025-03-03 14:59 | P.PN ---
Subjective Progress Note Date: 03/03/25 Interval History: 79-year-old male- patient, follows with visiting physician Dr. Cortés. Chronic stable medical condition include dementia, hypertension, hyperlipidemia. patient lives at [facility]. Does use a walker. Patient presents with lower abdominal discomfort feeling of gas. Diet. Last bowel movement was yesterday. Normally has a bowel movement every day. Also nausea vomiting today. [place] bloated in the abdomen. [address] scan of the abdomen showed dilated transverse colon with a focal transition point. Involving the left descending colon. With some short segment of circumferential wall thickening. Patient is NPO. February 22: I saw the patient this morning. Was pending colonoscopy. Later underwent the same by Dr. Domitila Staley. Distal transverse colon circumferential ulcerated mass with significant luminal narrowing. Scope could not be passed through. Multiple biopsies were done. Dr. Staley discussed this with the patient and the family. Patient kept on clear liquids. Surgery on the case. Patient has some left abdominal discomfort. February 23: Patient seen this morning. Pending surgical intervention by Dr. Patel. NPO. IV fluids.. February 24: Yesterday patient underwent laparotomy followed by left hemicolectomy for a partially obstructing colon mass. Midline incision with OptiForm. Some looking at the lower end. Patient is n.p.o. except ice chips. Did pass some flatus. No nausea vomiting. No pain. February 25: Patient on clear liquids. Some abdominal pain. Minimal flatus. Family at the bedside. Told the patient to be up in a chair. Getting IV fluids. February 26: Last night patient started vomiting. Abdominal x-ray showed a small bowel dilatation,/obstruction. NG tube was placed. Significant output. No flatus. Patient is put on a Catapres patch for his blood pressure. Getting LR. Awake tired February 15: Continues to have NG tube to suction. Patient seen this morning. Less abdominal pain. Minimal flatus. Blood pressure better with the Catapres patch. Awake, tired. February 28: NG tube to suction continuous. Abdominal x-ray still shows some small bowel dilatation. TPN lipids ordered./PICC line for the same. Significant output through the NG tube March 01: NG tube remains to suction. 750 cc in the 12 hours overnight. Patient did pass some flatus. Abdominal x-ray shows no dilated small bowel Aries fluid levels. Abdomen has tenderness but less distended. Getting TPN lipids. Via PICC line in the left arm March 02: Patient had his NG tube removed yesterday evening. Had a bowel movement yesterday. Was getting TPN lipids. Early today given clear liquids. Per surgery advance to full liquids for supper. Abdomen is much softer with decreased tenderness. 03/03/25 Patient was seen and examined today. Resting comfortably in bed. Feeling same. Reported bowel movement. Remains on TPN, p.o. intake improving, currently on full liquid diet. Heart rate 71 respiratory rate 17 blood pressure 177/74, saturating 96% on room air. WBCs 9.8 hemoglobin 9.8 platelet 260. BMP unremarkable with normal BUN/creatinine. Magnesium and phosphorus unremarkable. Biopsy showing adenocarcinoma, oncology consulted. Remains on antibiotics. General surgery following, plan to advance diet to regular diet today. PT/OT consult. Assessment and plan: - Acute partial bowel obstruction involving the left descending colon with some short segment circumferential wall thickening and surrounding fat stranding.: On presentation . - Adenocarcinoma: Distal transverse colon circumferential ulcerated mass with significant luminal narrowing endoscope could not be passed through the mass, status post multiple biopsies followed by tattooing with Opal ink: New diagnosis Left hemicolectomy by Dr. Patel on February 23. Biopsy showing adenocarcinoma Oncology consulted. -Postop small bowel obstruction: Improved March 02: NG tube was removed. Had a bowel movement yesterday. Tolerated clear liquids this morning. For full liquids this evening. -Colonic diverticulosis. Doubt diverticulitis. -Essential hypertension, Amlodipine. Losartan: P.o. meds on hold Catapres patch 0.3 - depression, Trazodone. BuSpar. - Nutrition: TPN lipids via PICC line - For nutritional support start TPN lipids. 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 Will keep on Catapres patch. If doing well can be switched over back to oral blood pressure medications. DVT prophylaxis: Subcutaneous heparin Disposition: PT/OT consult. No code Monitor vital signs and labs Labs and medication were reviewed. Continue same treatment. Further recommendations as per clinical course of the patient PHYSICAL EXAMINATION: GENERAL: The patient is A&O x3, NAD HEENT: EOMI, Sclerae anicteric, Moist Mucous membranes Neck: Supple, Non tender, No JVD PULMONARY: Equal breath souds B/L, No wheezing, No crackles. CARDIOVASCULAR: S1, S2 present. No murmurs, rubs, or gallops. ABDOMEN: Soft, midline surgical incision intact. Normoactive bowel sounds. No guarding or rebound tenderness. MUSCULOSKELETAL: No edema, No cyanosis. No clubbing. Normal ROM. Intact peripheral pulses. NEUROLOGICAL: CN 2-12 grossly intact. No FND Skin: No Rash REVIEW OF SYSTEMS: CONSTITUTIONAL: No fever or chills. CARDIOVASCULAR: No chest pain, palpitations or syncope. PULMONARY: No shortness of breath, no cough, sore throat. GASTROINTESTINAL: No nausea, vomiting, diarrhea, abdominal pain. : No Dysuria, urgency, frequency. Extremities: No edema. NEUROLOGICAL: No headaches, no weakness, or numbness Dictation was produced using [employer] dictation software. please excuse any grammatical, word or spelling errors. Objective - Vital Signs Vital signs: Vital Signs Temp 98.2 F 03/03/25 13:35 Pulse 71 03/03/25 13:35 Resp 17 03/03/25 13:35 BP 177/74 03/03/25 13:35 Pulse Ox 96 03/03/25 13:35 FiO2 Intake & Output 03/02/25 03/03/25 03/03/25 18:59 06:59 18:59 Intake Total 480 1080 1080 Output Total 500 800 Balance -20 280 1080 Weight 104.326 kg Intake: Oral 480 1080 1080 Output: Urine 500 800 Other: Voiding Method Indwelling Catheter Indwelling Catheter External Catheter # Bowel Movements 1 - Labs CBC & Chem 7: 03/03/25 04:09 03/03/25 04:06 Labs: Abnormal Lab Results - Last 24 Hours (Table) 03/02/25 03/03/25 03/03/25 Range/Units 16:41 01:00 04:06 RBC (4.40-5.60) 10*6/uL Hgb (13.0-17.0) g/dL Hct (39.6-50.0) % Immature Gran # (0.00-0.04) 10*3/uL Eosinophils # (0.04-0.35) 10*3/uL BUN 22 H (9-20) mg/dL Glucose 155 H (74-99) mg/dL POC Glucose (mg/dL) 136 H 160 H (70-110) mg/dL 03/03/25 03/03/25 03/03/25 Range/Units 04:09 06:21 11:39 RBC 3.17 L (4.40-5.60) 10*6/uL Hgb 9.8 L (13.0-17.0) g/dL Hct 30.4 L (39.6-50.0) % Immature Gran # 0.06 H (0.00-0.04) 10*3/uL Eosinophils # 0.74 H (0.04-0.35) 10*3/uL BUN (9-20) mg/dL Glucose (74-99) mg/dL POC Glucose (mg/dL) 153 H 182 H (70-110) mg/dL
[2025-03-03 16:31] LABS: Glucose,Whole Blood 144 mg/dL (70-110)
--- NOTE | 2025-03-03 17:55 | CT ---
EXAMINATION TYPE: CT chest w con DATE OF EXAM: 03/03/2025 5:39 PM COMPARISON: Multiple prior chest radiograph, most recently dated 02/28/2025. CLINICAL INDICATION: Male, 79 years old with history of Staging for colon cancer; H, staging for co jasmin ca TECHNIQUE: Multiple axial images were obtained through the chest. Sagittal and coronal reformats were created for review. MIP was performed on a separate workstation. Contrast used:100 mL of Isovue [address] DLP: 585.1 mGycm, Automated exposure control for dose reduction was used. FINDINGS: LUNGS/ PLEURA: The lung parenchyma appears unremarkable. AIRWAY: Patent and unremarkable. HEART: Mild cardiomegaly without pericardial effusion. Coronary artery desiccation. MEDIASTINUM: No gross evidence of adenopathy. VASCULATURE: Dilated ascending thoracic aorta measuring 4.1 cm in diameter at the level of the right pulmonary artery. Aberrant right subclavian artery. MUSCULOSKELETAL: No acute osseous abnormalities SOFT TISSUES/LYMPH NODES: Unremarkable. LOWER NECK: No significant findings. UPPER ABDOMEN: No significant acute findings. Indeterminant subcentimeter hyperdense lesion in the pa rtially visualized left hepatic lobe IMPRESSION: No acute abnormality in chest or evidence of thoracic metastatic disease. [facility], , 03/03/2025 5:52 PM
[2025-03-03] MEDS: hydrALAZINE HCL 20 MG/ML 1 ML VIAL IVP PRN (21:52)
[2025-03-03 23:29] LABS: Glucose,Whole Blood 152 mg/dL (70-110)
[2025-03-04 06:22] LABS: Glucose,Whole Blood 177 mg/dL (70-110)
--- NOTE | 2025-03-04 06:53 | P.PN ---
Progress Note - Text Progress Note Date: 03/04/25 HISTORY OF PRESENT ILLNESS: Patient is postop day #9 status post exploratory laparotomy with a left hemicolectomy. No acute events overnight. Having bowel function. Denies pain. Denies nausea and vomiting. PHYSICAL EXAM: VITAL SIGNS: Reviewed. GENERAL: Well-developed in no acute distress. ABDOMEN: Soft. Nontender. Abdominal midline incision clean dry and intact NEUROLOGIC: awake and alert ASSESSMENT: 1. Partially obstructing left colon mass 2. Postoperative ileus can be an expected finding 3. Possible developing pneumonia could be contributing to the leukocytosis 4. 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 -Encourage patient to use incentive spirometer -DVT prophylaxis subcu heparin -GI prophylaxis Protonix -PT/OT Chaka Jones DO [facility] [phone]
[2025-03-04 07:36] LABS: Protein, Total 5.7 g/dL (6.2-8.2)
[2025-03-04 09:00] LABS: % Iron Saturation 26.47 (15.00-50.00)
[2025-03-04 09:36] LABS: Basophils # (A) 0.05 X 10*3/uL (0.00-0.10); Basophils % (A) 0.5 %; Eosinophils # (A) 0.57 X 10*3/uL (0.04-0.35); HCT 29.7 % (39.6-50.0); HGB 9.2 g/dL (13.0-17.0); Lymphocytes # (A) 1.71 X 10*3/uL (0.90-5.00); Lymphocytes % (A) 17.9 %; MCH 30.2 pg (27.0-32.0); MCV 97.4 FL (80.0-97.0); Mean Platelet Volume 11.5 FL (9.5-12.2); Monocytes # (A) 0.76 X 10*3/uL (0.20-1.00); NRBC Per 100 WBC 0 X 10*3/uL (0.00-0.01); Neutrophils # (A) 6.39 X 10*3/uL (1.80-7.70); Neutrophils % (A) 66.9 %; Platelet Count 239 X 10*3/uL (140-440); RBC 3.05 X 10*6/uL (4.40-5.60); RDW 12.6 % (11.5-14.5); WBC 9.55 X 10*3/uL (4.50-10.00)
[2025-03-04 10:17] LABS: Blood Urea Nitrogen 20.6 mg/dL (9.0-27.0); Calcium 8.2 mg/dL (8.7-10.3); Chloride 107 mmol/L (96-109); Glucose 178 mg/dL (70-110); Magnesium 1.8 mg/dL (1.5-2.4); Phosphorus 2.3 mg/dL (2.4-5.1); Potassium 3.9 mmol/L (3.5-5.5); Sodium 141 mmol/L (135-145)
[2025-03-04 11:47] LABS: Glucose,Whole Blood 189 mg/dL (70-110)
--- NOTE | 2025-03-04 13:59 | P.PN ---
Subjective Interval History: 79-year-old male- patient, follows with visiting physician Dr. Cortés. Chronic stable medical condition include dementia, hypertension, hyperlipidemia. patient lives at [facility]. Does use a walker. Patient presents with lower abdominal discomfort feeling of gas. Diet. Last bowel movement was yesterday. Normally has a bowel movement every day. Also nausea vomiting today. [place] bloated in the abdomen. [address] scan of the abdomen showed dilated transverse colon with a focal transition p oint. Involving the left descending colon. With some short segment of circumferential wall thickening. Patient is NPO. February 22: I saw the patient this morning. Was pending colonoscopy. Later un derwent the same by Dr. Domitila Staley. Distal transverse colon circumferential ulcerated mass with significant luminal narrowing. Scope could not be passed through. Multiple biopsies were done. Dr. Staley discussed this with the patient and the family. Patient kept on clear liquids. Surgery on the case. Patient has some left abdominal discomfort. February 23: Patient seen this morning. Pending surgical intervention by Dr. Patel. NPO. IV fluids.. February 24: Yesterday patient underwent laparotomy followed by left hemicolectomy for a partially obstructing colon mass. Midline incision with OptiForm. Some looking at the lower end. Patient is n.p.o. except ice chips. Did pass some flatus. No nausea vomiting. No pain. February 25: Patient on clear liquids. Some abdominal pain. Minimal flatus. Family at the bedside. Told the patient to be up in a chair. Getting IV fluids. February 26: Last night patient started vomiting. Abdominal x-ray showed a small bowel dilatation,/obstruction. NG tube was placed. Significant output. No flatus. Patient is put on a Catapres patch for his blood pressure. Getting LR. Awake tired February 27: Continues to have NG tube to suction. Patient seen this morning. Less abdominal pain. Minimal flatus. Blood pressure better with the Catapres patch. Awake, tired. February 28: NG tube to suction continuous. Abdominal x-ray still shows some small bowel dilatation. TPN lipids ordered./PICC line for the same. Significant output through the NG tube March 01: NG tube remains to suction. 750 cc in the 12 hours overnight. Patient did pass some flatus. Abdominal x-ray shows no dilated small bowel Aries fluid levels. Abdomen has tenderness but less distended. Getting TPN lipids. Via PICC line in the left arm March 02: Patient had his NG tube removed yesterday evening. Had a bowel movement yesterday. Was getting TPN lipids. Early today given clear liquids. Per surgery advance to full liquids for supper. Abdomen is much softer with decreased tenderness. 03/03/25 Patient was seen and examined today. Resting comfortably in bed. Feeling same. Reported bowel movement. Remains on TPN, p.o. intake improving, currently on full liquid diet. Heart rate 71 respiratory rate 17 blood pressure 177/74, saturating 96% on room air. WBCs 9.8 hemoglobin 9.8 platelet 260. BMP unremarkable with normal BUN/creatinine. Magnesium and phosphorus unremarkable. Biopsy showing adenocarcinoma, oncology consulted. Remains on antibiotics. General surgery following, plan to advance diet to regular diet today. PT/OT consult. 03/04/25 Patient was seen and examined today. Resting comfortably in bed. Abdominal pain is controlled. Postoperative day 9 status post exploratory laparotomy with a left hemicolectomy, biopsy showing adenocarcinoma. General surgery following, currently on TPN. Diet advanced to regular, tolerating. Remains on an tibiotics. Oncology consulted, CT chest done negative for any acute process or metastasis. Assessment and plan: - Acute partial bowel obstruction involving the left descending colon with some short segment circumferential wall thickening and surrounding fat stranding.: On presentation . - Adenocarcinoma: Distal transverse colon circumferential ulcerated mass with significant luminal narrowing endoscope could not be passed through the mass, status post multiple biopsies followed by tattooing with Opal ink: New diagnosis Left hemicolectomy by Dr. Patel on February 23. Biopsy showing adenocarcinoma Oncology consulted. CT chest negative for metastasis. -Postop small bowel obstruction: Improved March 02: NG tube was removed. Had a bowel movement yesterday. Tolerated clear liquids this morning. For full liquids this evening. -Colonic diverticulosis. Doubt diverticulitis. -Essential hypertension, Amlodipine. Losartan: P.o. meds on hold Catapres patch 0.3 - depression, Trazodone. BuSpar. - Nutrition: TPN lipids via PICC line - For nutritional support start TPN lipids. 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 Will keep on Catapres patch. If doing well can be switched over back to oral blood pressure medications. DVT prophylaxis: Subcutaneous heparin Disposition: PT/OT consult. No code Monitor vital signs and labs Labs and medication were reviewed. Continue same treatment. Further recommendations as per clinical course of the patient PHYSICAL EXAMINATION: GENERAL: The patient is A&O x3, NAD HEENT: EOMI, Sclerae anicteric, Moist Mucous membranes Neck: Supple, Non tender, No JVD PULMONARY: Equal breath souds B/L, No wheezing, No crackles. CARDIOVASCULAR: S1, S2 present. No murmurs, rubs, or gallops. ABDOMEN: Soft, midline surgical incision intact. Normoactive bowel sounds. No guarding or rebound tenderness. MUSCULOSKELETAL: No edema, No cyanosis. No clubbing. Normal ROM. Intact peripheral pulses. NEUROLOGICAL: CN 2-12 grossly intact. No FND Skin: No Rash REVIEW OF SYSTEMS: CONSTITUTIONAL: No fever or chills. CARDIOVASCULAR: No chest pain, palpitations or syncope. PULMONARY: No shortness of breath, no cough, sore throat. GASTROINTESTINAL: No nausea, vomiting, diarrhea, abdominal pain. : No Dysuria, urgency, frequency. Extremities: No edema. NEUROLOGICAL: No headaches, no weakness, or numbness Dictation was produced using [employer] dictation software. please excuse any grammatical, word or spelling errors. Objective - Vital Signs Vital signs: Vital Signs Temp 98.2 F 03/04/25 07:20 Pulse 69 03/04/25 07:20 Resp 17 03/04/25 07:20 BP 178/79 03/04/25 07:20 Pulse Ox 95 03/04/25 07:20 FiO2 Intake & Output 03/03/25 03/04/25 03/04/25 18:59 06:59 18:59 Intake Total 2566 540 1011 Output Total 525 Balance 2566 15 1011 Intake: Intake, IV Titration 1111 1011 Amount Mvi, Adult No.4 with Vit 1011 1011 K 10 ml Trace (Conc-1Ml/ Dose) 1 ml In Amino Acid 5%-D20w+Lytes*E* 1,000 ml @ 50 mls/hr IV .[id number] [facility] Rx#:[id number] Piperacillin-Tazobactam 3 100 .375 gm In Sodium Chloride 0.9% 100 ml @ 25 mls/hr IVPB Q8H [facility] Rx#: [id number] Oral 1455 540 Output: Urine 525 Other: Voiding Method External Catheter External Catheter External Catheter # Voids 2 # Bowel Movements 2 - Labs CBC & Chem 7: 03/04/25 03:12 03/04/25 03:12 Labs: Abnormal Lab Results - Last 24 Hours (Table) 03/03/25 03/03/25 03/03/25 Range/Units 04:06 04:06 16:30 RBC (4.40-5.60) X 10*6/uL Hgb (13.0-17.0) g/dL Hct (39.6-50.0) % MCV (80.0-97.0) FL MCHC (32.0-37.0) g/dL Immature Gran # (0.00-0.04) X 10*3/uL Eosinophils # (0.04-0.35) X 10*3/uL BUN/Creatinine Ratio (12.00-20.00) Ratio Glucose (70-110) mg/dL POC Glucose (mg/dL) 144 H (70-110) mg/dL Calcium (8.7-10.3) mg/dL Phosphorus (2.4-5.1) mg/dL Iron 54 L (65-175) UG/DL TIBC 204 L (228-460) UG/DL Transferrin 146.0 L (204.0-354.0) mg/dL Total Protein (PEP) 5.7 L (6.2-8.2) g/dL 03/03/25 03/04/25 03/04/25 Range/Units 23:27 03:12 03:12 RBC 3.05 L (4.40-5.60) X 10*6/uL Hgb 9.2 L (13.0-17.0) g/dL Hct 29.7 L (39.6-50.0) % MCV 97.4 H (80.0-97.0) FL MCHC 31.0 L (32.0-37.0) g/dL Immature Gran # 0.07 H (0.00-0.04) X 10*3/uL Eosinophils # 0.57 H (0.04-0.35) X 10*3/uL BUN/Creatinine Ratio 20.60 H (12.00-20.00) Ratio Glucose 178 H (70-110) mg/dL POC Glucose (mg/dL) 152 H (70-110) mg/dL Calcium 8.2 L (8.7-10.3) mg/dL Phosphorus 2.3 L (2.4-5.1) mg/dL Iron (65-175) UG/DL TIBC (228-460) UG/DL Transferrin (204.0-354.0) mg/dL Total Protein (PEP) (6.2-8.2) g/dL 03/04/25 03/04/25 Range/Units 06:21 11:46 RBC (4.40-5.60) X 10*6/uL Hgb (13.0-17.0) g/dL Hct (39.6-50.0) % MCV (80.0-97.0) FL MCHC (32.0-37.0) g/dL Immature Gran # (0.00-0.04) X 10*3/uL Eosinophils # (0.04-0.35) X 10*3/uL BUN/Creatinine Ratio (12.00-20.00) Ratio Glucose (70-110) mg/dL POC Glucose (mg/dL) 177 H 189 H (70-110) mg/dL Calcium (8.7-10.3) mg/dL Phosphorus (2.4-5.1) mg/dL Iron (65-175) UG/DL TIBC (228-460) UG/DL Transferrin (204.0-354.0) mg/dL Total Protein (PEP) (6.2-8.2) g/dL
[2025-03-04] MEDS: IPRATROPIUM-ALBUTEROL 3 ML NEB INHALATION PRN (15:34)
[2025-03-04] MEDS: MAGNESIUM SULFATE-D5W PMX 1 GM in DEXTROSE/WATER 1 100ML.BAG IVPB ONE (16:00)
[2025-03-04 16:50] LABS: Glucose,Whole Blood 175 mg/dL (70-110)
[2025-03-04] MEDS: SODIUM PHOSPHATE 15 MMOL in DEXTROSE 5% IN WATER 250 ML IVPB ONE (17:44)
[2025-03-05 00:07] LABS: Glucose,Whole Blood 132 mg/dL (70-110)
[2025-03-05 04:06] LABS: African American GFR (CKD) 78 (>60 ml/min/1.73 sqM); Anion Gap 6 mmol/L; Blood Urea Nitrogen 23 mg/dL (9-20); Calcium 8.7 mg/dL (8.4-10.2); Carbon Dioxide 25 mmol/L (22-30); Chloride 106 mmol/L (98-107); Glucose 110 mg/dL (74-99); Magnesium 2.1 mg/dL (1.6-2.3); Non-African American GFR(CKD) 67 (>60 ml/min/1.73 sqM); Potassium 4.1 mmol/L (3.5-5.1); Sodium 137 mmol/L (137-145)
[2025-03-05 06:04] LABS: Glucose,Whole Blood 147 mg/dL (70-110)
[2025-03-05 09:10] LABS: Basophils # (A) 0.06 X 10*3/uL (0.00-0.10); Basophils % (A) 0.6 %; Eosinophils # (A) 0.65 X 10*3/uL (0.04-0.35); HCT 30.4 % (39.6-50.0); HGB 9.3 g/dL (13.0-17.0); Lymphocytes # (A) 2.14 X 10*3/uL (0.90-5.00); Lymphocytes % (A) 23.1 %; MCH 29.8 pg (27.0-32.0); MCHC 30.6 g/dL (32.0-37.0); MCV 97.4 FL (80.0-97.0); Monocytes # (A) 0.85 X 10*3/uL (0.20-1.00); Monocytes % (A) 9.2 %; NRBC Per 100 WBC 0 X 10*3/uL (0.00-0.01); Neutrophils # (A) 5.48 X 10*3/uL (1.80-7.70); Neutrophils % (A) 59.2 %; Platelet Count 272 X 10*3/uL (140-440); RBC 3.12 X 10*6/uL (4.40-5.60); WBC 9.26 X 10*3/uL (4.50-10.00)
--- NOTE | 2025-03-05 11:37 | P.PN ---
Subjective Progress Note Date: 03/05/25 SURGICAL PROGRESS NOTE CHIEF COMPLAINT: Colon mass HISTORY OF PRESENT ILLNESS: Patient is postop day #10 status post exploratory laparotomy with a left hemicolectomy. Patient is having bowel movements. Tolerating regular diet. No nausea or vomiting reported. Patient is off of TPN. Afebrile. WBC 9.26 Hgb 9.3 PHYSICAL EXAM: VITAL SIGNS: Reviewed. GENERAL: Well-developed in no acute distress. ABDOMEN: Soft. Nontender. Abdominal midline dressing clean dry and intact NEUROLOGIC: awake and alert ASSESSMENT: 1. Partially obstructing left colon mass 2. Postoperative ileus can be an expected finding 3. Possible developing pneumonia could be contributing to the leukocytosis 4. Pathology results invasive moderately differentiated adenocarcinoma PLAN: -Continue regular diet -Encourage patient to work with PT OT -manager oncology working on ECF placement after discharge -Patient having bowel movements. Discontinue Reglan and Dulcolax suppository -Continue antibiotics -Encourage patient to increase activity level. -Encourage patient to use incentive spirometer -DVT prophylaxis subcu heparin -GI prophylaxis Protonix Physician General Studies Program Chair note has been reviewed by physician. Signing provider agrees with the documented findings, assessment, and plan of care. Attestation Patient seen and examined at bedside on 03/05/2025. No new complaints. He is having bowel movements. Discontinue Reglan and Dulcolax suppository and replace with oral stool softener. Continue to increase activity. Surgically stable for discharge. Akash Patel DO Objective - Vital Signs Vital signs: Vital Signs Temp 97.9 F 03/05/25 07:30 Pulse 71 03/05/25 09:18 Resp 18 03/05/25 09:18 BP 175/78 03/05/25 07:30 Pulse Ox 94 L 03/05/25 07:30 FiO2 Intake & Output 03/04/25 03/05/25 03/05/25 18:59 06:59 18:59 Intake Total 1011 1650 Balance 1011 1650 Intake: Intake, IV Titration 1011 Amount Mvi, Adult No.4 with Vit 1011 K 10 ml Trace (Conc-1Ml/ Dose) 1 ml In Amino Acid 5%-D20w+Lytes*E* 1,000 ml @ 50 mls/hr IV .[id number] [facility] Rx#:[id number] Oral 1650 Other: Voiding Method External Catheter Diaper Incontinent # Voids 3 7 # Bowel Movements 2 - Labs CBC & Chem 7: 03/05/25 03:11 03/06/25 03:28 Labs: Abnormal Lab Results - Last 24 Hours (Table) 03/04/25 03/04/25 03/05/25 Range/Units 11:46 16:48 00:05 RBC (4.40-5.60) X 10*6/uL Hgb (13.0-17.0) g/dL Hct (39.6-50.0) % MCV (80.0-97.0) FL MCHC (32.0-37.0) g/dL Immature Gran # (0.00-0.04) X 10*3/uL Eosinophils # (0.04-0.35) X 10*3/uL BUN (9-20) mg/dL Glucose (74-99) mg/dL POC Glucose (mg/dL) 189 H 175 H 132 H (70-110) mg/dL 03/05/25 03/05/25 03/05/25 Range/Units 03:11 03:11 06:03 RBC 3.12 L (4.40-5.60) X 10*6/uL Hgb 9.3 L (13.0-17.0) g/dL Hct 30.4 L (39.6-50.0) % MCV 97.4 H (80.0-97.0) FL MCHC 30.6 L (32.0-37.0) g/dL Immature Gran # 0.08 H (0.00-0.04) X 10*3/uL Eosinophils # 0.65 H (0.04-0.35) X 10*3/uL BUN 23 H (9-20) mg/dL Glucose 110 H (74-99) mg/dL POC Glucose (mg/dL) 147 H (70-110) mg/dL
[2025-03-05 11:47] LABS: Glucose,Whole Blood 220 mg/dL (70-110)
[2025-03-05 14:13] LABS: Free Kappa Lt Chain Qnt, Serum 3.76 mg/dL (0.33-1.94); Free Lambda Lt Chain Qnt, Seru 3.36 mg/dL (0.57-2.63)
[2025-03-05 16:54] LABS: Glucose,Whole Blood 203 mg/dL (70-110)
--- NOTE | 2025-03-05 16:56 | P.PN ---
Subjective Progress Note Date: 03/05/25 Patient resting comfortably in bed. Denies n/v/d, and abdominal pain. He has been having BMs. Counts stable Objective - Vital Signs Vital signs: Vital Signs Temp 98.2 F 03/05/25 13:02 Pulse 69 03/05/25 13:02 Resp 18 03/05/25 13:02 BP 150/66 03/05/25 13:02 Pulse Ox 96 03/05/25 13:02 FiO2 Intake & Output 03/04/25 03/05/25 03/05/25 18:59 06:59 18:59 Intake Total 1011 1650 Balance 1011 1650 Intake: Intake, IV Titration 1011 Amount Mvi, Adult No.4 with Vit 1011 K 10 ml Trace (Conc-1Ml/ Dose) 1 ml In Amino Acid 5%-D20w+Lytes*E* 1,000 ml @ 50 mls/hr IV .[id number] [facility] Rx#:[id number] Oral 1650 Other: Voiding Method External Catheter Diaper Incontinent # Voids 3 7 # Bowel Movements 2 - Constitutional General appearance: Present: average body habitus, no acute distress - EENT Eyes: Present: anicteric sclerae, EOMI ENT: Present: hearing grossly normal - Respiratory Details: breathing is even and unlabored - Cardiovascular Details: skin warm and dry - Gastrointestinal General gastrointestinal: Present: soft. Absent: tenderness - Integumentary Integumentary: Absent: cyanotic, jaundiced - Musculoskeletal Musculoskeletal: Present: strength equal bilaterally - Labs CBC & Chem 7: 03/05/25 03:11 03/05/25 03:11 Labs: Abnormal Lab Results - Last 24 Hours (Table) 03/03/25 03/04/25 03/05/25 Range/Units 04:06 16:48 00:05 RBC (4.40-5.60) X 10*6/uL Hgb (13.0-17.0) g/dL Hct (39.6-50.0) % MCV (80.0-97.0) FL MCHC (32.0-37.0) g/dL Immature Gran # (0.00-0.04) X 10*3/uL Eosinophils # (0.04-0.35) X 10*3/uL BUN (9-20) mg/dL Glucose (74-99) mg/dL POC Glucose (mg/dL) 175 H 132 H (70-110) mg/dL Free [place] LC, Quant 3.76 H (0.33-1.94) mg/dL Free Lambda LC, Quant 3.36 H (0.57-2.63) mg/dL 03/05/25 03/05/25 03/05/25 Range/Units 03:11 03:11 06:03 RBC 3.12 L (4.40-5.60) X 10*6/uL Hgb 9.3 L (13.0-17.0) g/dL Hct 30.4 L (39.6-50.0) % MCV 97.4 H (80.0-97.0) FL MCHC 30.6 L (32.0-37.0) g/dL Immature Gran # 0.08 H (0.00-0.04) X 10*3/uL Eosinophils # 0.65 H (0.04-0.35) X 10*3/uL BUN 23 H (9-20) mg/dL Glucose 110 H (74-99) mg/dL POC Glucose (mg/dL) 147 H (70-110) mg/dL Free [place] LC, Quant (0.33-1.94) mg/dL Free Lambda LC, Quant (0.57-2.63) mg/dL 03/05/25 Range/Units 11:46 RBC (4.40-5.60) X 10*6/uL Hgb (13.0-17.0) g/dL Hct (39.6-50.0) % MCV (80.0-97.0) FL MCHC (32.0-37.0) g/dL Immature Gran # (0.00-0.04) X 10*3/uL Eosinophils # (0.04-0.35) X 10*3/uL BUN (9-20) mg/dL Glucose (74-99) mg/dL POC Glucose (mg/dL) 220 H (70-110) mg/dL Free [place] LC, Quant (0.33-1.94) mg/dL Free Lambda LC, Quant (0.57-2.63) mg/dL Assessment and Plan (1) Anemia Current Visit: Yes Status: Acute Code(s): D64.9 - ANEMIA, UNSPECIFIED SNOMED Code(s): 660097051 (2) Mass of colon Current Visit: Yes Status: Acute Code(s): K63.89 - OTHER SPECIFIED DISEASES OF INTESTINE SNOMED Code(s): 139801616 (3) Partial bowel obstruction Current Visit: Yes Status: Acute Code(s): K56.600 - PARTIAL INTESTINAL OBSTRUCTION, UNSPECIFIED TO CAUSE SNOMED Code(s): 24299626503499214 (4) Colon cancer Current Visit: Yes Status: Acute Code(s): C18.9 - MALIGNANT NEOPLASM OF COLON, UNSPECIFIED SNOMED Code(s): 938004243 Plan: 1. Colon adenocarcinoma 2. Post op ileus 3. Anemia Plan: Mr. Castro is a very pleasant 79-year-old gentleman who is here for abdominal distention, workup revealed left-sided colon mass status post resection for obstruction, final pathology with a grade 2 invasive adenocarcinoma that extends into the pericolonic tissue with 1/20 positive lymph nodes, pT3N1a. Also with normocytic anemia that slightly decreased postop and SHERIE on presentation that seems to have resolved. Normal LFTs. No signs of metastatic disease on CT AP. - I discussed pathology with the patient. - He has stage III disease with 1 involved lymph node - Adjuvant Xeloda would be considered however he does have multiple comorbidities and PS2 prior to admission, and will need reevaluation of overall condition and performance status once he recovers from surgery before finalizing adjuvant chemotherapy plan - CT chest negative for metastatic disease - Anemia workup obtained. Workup thus far negative, pending completion of workup Discussed with patient he is agreeable with the plan. All of his questions were answered. Doctor attests: I performed a history and physical examination of this patient, developed impression and plan of care. Discussed with dictator. I agree with dictators note, documented as a scribe.
[2025-03-05 19:52] LABS: Glucose,Whole Blood 140 mg/dL (70-110)
[2025-03-05] MEDS: SENNOSIDES 8.6 MG TAB PO SCH (20:43)
--- NOTE | 2025-03-05 22:04 | P.PN ---
Subjective Progress Note Date: 03/05/25 Interval History: 79-year-old male- patient, follows with visiting physician Dr. Cortés. Chronic stable medical condition include dementia, hypertension, hyperlipidemia. patient lives at [facility]. Does use a walker. Patient presents with lower abdominal discomfort feeling of gas. Diet. Last bowel movement was yesterday. Normally has a bowel movement every day. Also nausea vomiting today. [place] bloated in the abdomen. [address] scan of the abdomen showed dilated transverse colon with a focal transition point. Involving the left descending colon. With some short segment of circumferential wall thickening. Patient is NPO. February 22: I saw the patient this morning. Was pending colonoscopy. Later underwent the same by Dr. Domitila Staley. Distal transverse colon circumferential ulcerated mass with significant luminal narrowing. Scope could not be passed through. Multiple biopsies were done. Dr. Staley discussed this with the patient and the family. Patient kept on clear liquids. Surgery on the case. Patient has some left abdominal discomfort. February 23: Patient seen this morning. Pending surgical intervention by Dr. Patel. NPO. IV fluids.. February 24: Yesterday patient underwent laparotomy followed by left hemicolectomy for a partially obstructing colon mass. Midline incision with OptiForm. Some looking at the lower end. Patient is n.p.o. except ice chips. Did pass some flatus. No nausea vomiting. No pain. February 25: Patient on clear liquids. Some abdominal pain. Minimal flatus. Family at the bedside. Told the patient to be up in a chair. Getting IV fluids. February 26: Last night patient started vomiting. Abdominal x-ray showed a small bowel dilatation,/obstruction. NG tube was placed. Significant output. No flatus. Patient is put on a [place] patch for his blood pressure. Getting LR. Awake tired February 15: Continues to have NG tube to suction. Patient seen this morning. Less abdominal pain. Minimal flatus. Blood pressure better with the Catap[place] patch. Awake, tired. February 28: NG tube to suction continuous. Abdominal x-ray still shows some small bowel dilatation. TPN lipids ordered./PICC line for the same. Significant output through the NG tube March 01: NG tube remains to suction. 750 cc in the 12 hours overnight. Patient did pass some flatus. Abdominal x-ray shows no dilated small bowel Aries fluid levels. Abdomen has tenderness but less distended. Getting TPN lipids. Via PICC line in the left arm March 02: Patient had his NG tube removed yesterday evening. Had a bowel movement yesterday. Was getting TPN lipids. Early today given clear liquids. Per surgery advance to full liquids for supper. Abdomen is much softer with decreased tenderness. 03/03/25 Patient was seen and examined today. Resting comfortably in bed. Feeling same. Reported bowel movement. Remains on TPN, p.o. intake improving, currently on full liquid diet. Heart rate 71 respiratory rate 17 blood pressure 177/74, saturating 96% on room air. WBCs 9.8 hemoglobin 9.8 platelet 260. BMP unremarkable with normal BUN/creatinine. Magnesium and phosphorus unremarkable. Biopsy showing adenocarcinoma, oncology consulted. Remains on antibiotics. General surgery following, plan to advance diet to regular diet today. PT/OT consult. 03/04/25 Patient was seen and examined today. Resting comfortably in bed. Abdominal pain is controlled. Postoperative day 9 status post exploratory laparotomy with a left hemicolectomy, biopsy showing adenocarcinoma. General surgery following, currently on TPN. Diet advanced to regular, tolerating. Remains on antibiotics. Oncology consulted, CT chest done negative for any acute process or metastasis. 03/05/2025 Patient is evaluated today in follow up. Sitting up in the bed. No acute complaintsw. He is tolerating regular diet and bowels are moving. Postoperative day #10 exploratory lap and left hemicolectomy with end to end anastamosis. Patient is not complaining of any significant abdominal discomfort. He does reporting feeling more short of breath today and noted to have scattered wheezing on examination. He is 93% on room air. Review of Systems Constitutional: Denied any fatigue denied any fever. Cardio vascular: denied any chest pain, palpitations Gastrointestinal: denied any nausea, vomiting, Reports loose stools and abdominal pain Pulmonary: Denied any shortness of breath cough Neurologic denied any new focal deficits All inpatient medications were reviewed and appropriate changes in these medications as dictated in the interval history and assessment and plan. PHYSICAL EXAMINATION: GENERAL: The patient is alert and oriented x2-3, not in any acute distress. Well developed, well nourished. Obese HEENT: Pupils are round and equally reacting to light. EOMI. No scleral icterus. No conjunctival pallor. Normocephalic, atraumatic. No pharyngeal erythema. No thyromegaly. CARDIOVASCULAR: S1 and S2 present. No murmurs, rubs, or gallops. PULMONARY: Scattered wheezing throughout the posterior lung john ABDOMEN: Soft, mildly tender, nondistended, normoactive bowel sounds. No palpable organomegaly. MUSCULOSKELETAL: No joint swelling or deformity. EXTREMITIES: No cyanosis, clubbing, or pedal edema. NEUROLOGICAL: Gross neurological examination did not reveal any focal deficits. SKIN: No rashes. Assessment and Plan - Acute partial bowel obstruction involving the left descending colon status post left hemicoletomy with pathology revealing Adenocarcinoma -Postop ileus resolving -Colonic diverticulosis. Doubt diverticulitis. 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 Dr. Agus MD I have performed a history and physical examination and medical decision making of this patient, discussed the same with the dictator, and agree with the dictators assessment and plan as written, documented as a scribe. Based on total visit time, I have performed more than 50% of this visit. Objective - Vital Signs Vital signs: Vital Signs Temp 97.9 F 03/05/25 07:30 Pulse 71 03/05/25 07:30 Resp 18 03/05/25 07:30 BP 175/78 03/05/25 07:30 Pulse Ox 94 L 03/05/25 07:30 FiO2 Intake & Output 03/04/25 03/05/25 03/05/25 18:59 06:59 18:59 Intake Total 1011 1650 Balance 1011 1650 Intake: Intake, IV Titration 1011 Amount Mvi, Adult No.4 with Vit 1011 K 10 ml Trace (Conc-1Ml/ Dose) 1 ml In Amino Acid 5%-D20w+Lytes*E* 1,000 ml @ 50 mls/hr IV .[id number] [facility] Rx#:[id number] Oral 1650 Other: Voiding Method External Catheter Diaper Incontinent # Voids 3 7 # Bowel Movements 2 - Labs CBC & Chem 7: 03/05/25 03:11 03/05/25 03:11 Labs: Abnormal Lab Results - Last 24 Hours (Table) 03/04/25 03/04/25 03/05/25 Range/Units 11:46 16:48 00:05 RBC (4.40-5.60) X 10*6/uL Hgb (13.0-17.0) g/dL Hct (39.6-50.0) % MCV (80.0-97.0) FL MCHC (32.0-37.0) g/dL Immature Gran # (0.00-0.04) X 10*3/uL Eosinophils # (0.04-0.35) X 10*3/uL BUN (9-20) mg/dL Glucose (74-99) mg/dL POC Glucose (mg/dL) 189 H 175 H 132 H (70-110) mg/dL 03/05/25 03/05/25 03/05/25 Range/Units 03:11 03:11 06:03 RBC 3.12 L (4.40-5.60) X 10*6/uL Hgb 9.3 L (13.0-17.0) g/dL Hct 30.4 L (39.6-50.0) % MCV 97.4 H (80.0-97.0) FL MCHC 30.6 L (32.0-37.0) g/dL Immature Gran # 0.08 H (0.00-0.04) X 10*3/uL Eosinophils # 0.65 H (0.04-0.35) X 10*3/uL BUN 23 H (9-20) mg/dL Glucose 110 H (74-99) mg/dL POC Glucose (mg/dL) 147 H (70-110) mg/dL Assessment and Plan Time with Patient: Less than 30
[2025-03-05 23:15] LABS: Glucose,Whole Blood 133 mg/dL (70-110)
[2025-03-06 04:56] LABS: Glucose,Whole Blood 125 mg/dL (70-110)
--- NOTE | 2025-03-06 08:12 | XR ---
EXAMINATION TYPE: XR chest 2V DATE OF EXAM: 03/06/2025 6:31 AM COMPARISON: 02/28/2025. CLINICAL INDICATION: Male, 79 years old with history of wheezing; TECHNIQUE: XR chest 2V Frontal and lateral views of the chest. FINDINGS: Lungs/Pleura: There is flattening of the diaphragm with increased lucency of the lungs. No evidence o f pneumothorax, pleural effusion or focal consolidation. Pulmonary vascularity: Unremarkable. Heart/mediastinum: Cardiomediastinal silhouette is unremarkable. Atherosclerotic calcifications are seen in the aorta. Musculoskeletal: No acute osseous pathology. Other findings: None Lines/Tubes: Left-sided PICC with distal tip at the superior vena cava/brachiocephalic confluence. IMPRESSION: 1. Stable exam. 2. Stable left PICC. [facility], , 03/06/2025 8:10 AM
[2025-03-06 08:17] LABS: BUN/Creat Ratio 20.18 Ratio (12.00-20.00); Blood Urea Nitrogen 22.2 mg/dL (9.0-27.0); Calcium 8.4 mg/dL (8.7-10.3); Carbon Dioxide 22.8 mmol/L (21.6-31.8); Chloride 108 mmol/L (96-109); Glucose 125 mg/dL (70-110); Potassium 4.3 mmol/L (3.5-5.5); Sodium 140 mmol/L (135-145)
[2025-03-06 12:07] LABS: Glucose,Whole Blood 172 mg/dL (70-110)
--- NOTE | 2025-03-06 13:33 | P.PN ---
Subjective Progress Note Date: 03/06/25 SURGICAL PROGRESS NOTE CHIEF COMPLAINT: Colon mass HISTORY OF PRESENT ILLNESS: Patient is postop day #11 status post exploratory laparotomy with a left hemicolectomy. Patient is having bowel movements. Tolerating regular diet. No nausea or vomiting reported. Afebrile. Patient being discharged to F today. Chest x-ray stable PHYSICAL EXAM: VITAL SIGNS: Reviewed. GENERAL: Well-developed in no acute distress. ABDOMEN: Soft. Nontender. Abdominal midline dressing clean dry and intact NEUROLOGIC: awake and alert ASSESSMENT: 1. Partially obstructing left colon mass 2. Postoperative ileus can be an expected finding 3. Leukocytosis resolved 4. Pathology results invasive moderately differentiated adenocarcinoma PLAN: -Patient can be discharged from surgical standpoint -Continue regular diet -Continue stool softener -Recommend outpatient follow-up with oncology service -No further antibiotics needed at discharge from surgical standpoint -DVT prophylaxis subcu heparin -GI prophylaxis Protonix Physician Assistant Construction Superintendent note has been reviewed by physician. Signing provider agrees with the documented findings, assessment, and plan of care. Attestation Patient seen and examined at bedside. States he is not having any abdominal pain. Having bowel movements. Tolerating diet. Abdomen is soft on exam today. Surgically stable for discharge. Care per medicine team. T3 N1 pathology is noted and patient will require follow-up with oncology. Akash Patel, Objective - Vital Signs Vital signs: Vital Signs Temp 97.7 F 03/06/25 07:26 Pulse 69 03/06/25 07:26 Resp 16 03/06/25 07:26 BP 150/74 03/06/25 07:26 Pulse Ox 97 03/06/25 07:26 FiO2 Intake & Output 03/05/25 03/06/25 03/06/25 18:59 06:59 18:59 Intake Total 965 Balance 965 Weight 104.326 kg Intake: Intake, IV Titration 725 Amount Lactated Ringers 1,000 ml 525 @ 75 mls/hr IV .[id number] [facility] Rx#:[id number] Piperacillin-Tazobactam 3 200 .375 gm In Sodium Chloride 0.9% 100 ml @ 25 mls/hr IVPB Q8H [facility] Rx#: [id number] Oral 240 Other: Voiding Method Diaper Diaper Incontinent Incontinent # Voids 6 4 # Bowel Movements 4 - Labs CBC & Chem 7: 03/05/25 03:11 03/06/25 03:28 Labs: Abnormal Lab Results - Last 24 Hours (Table) 03/03/25 03/05/25 03/05/25 Range/Units 04:06 16:52 19:51 BUN/Creatinine Ratio (12.00-20.00) Ratio Glucose (70-110) mg/dL POC Glucose (mg/dL) 203 H 140 H (70-110) mg/dL Calcium (8.7-10.3) mg/dL Free [place] LC, Quant 3.76 H (0.33-1.94) mg/dL Free [place] LC, Quant 3.36 H (0.57-2.63) mg/dL 03/05/25 03/06/25 03/06/25 Range/Units 23:14 03:28 04:55 BUN/Creatinine Ratio 20.18 H (12.00-20.00) Ratio Glucose 125 H (70-110) mg/dL POC Glucose (mg/dL) 133 H 125 H (70-110) mg/dL Calcium 8.4 L (8.7-10.3) mg/dL Free [place] LC, Quant (0.33-1.94) mg/dL Free [place] LC, Quant (0.57-2.63) mg/dL 03/06/25 Range/Units 12:05 BUN/Creatinine Ratio (12.00-20.00) Ratio Glucose (70-110) mg/dL POC Glucose (mg/dL) 172 H (70-110) mg/dL Calcium (8.7-10.3) mg/dL Free [place] LC, Quant (0.33-1.94) mg/dL Free Lambda LC, Quant (0.57-2.63) mg/dL
--- NOTE | 2025-03-06 14:17 | P.DS ---
Providers Date of admission: 02/21/25 00:22 Attending physician: Herman Balderrama Consults: 02/21/25 00:20 Consult Physician Routine Consulting Provider: Chris Chen Consult Reason/Comments: Partial bowel obstruction Do you want consulting provider notified?: Yes 03/03/25 09:49 Consult Physician Routine Consulting Provider: [place] Consult Reason/Comments: COLON ADENOCA Do you want consulting provider notified?: Yes Primary care physician: Danny Marcos Hospital Course: Final Diagnosis -Acute partial bowel obstruction involving the left descending colon status post left hemicoletomy with pathology revealing Adenocarcinoma -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 Doubt diverticulitis. 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 No further antibiotics needed on discharge. Continue all oral blood pressure medications. Follow up with general surgery and oncology. Repeat blood work 2 to 3 days. Hospital Course 79-year-old male- patient, follows with visiting physician Dr. Cortés. Chronic stable medical condition include dementia, hypertension, hyperlipidemia. patient lives at [facility]. Does use a walker. Patient presents with lower abdominal discomfort feeling of gas. Diet. Last bowel movement was yesterday. Normally has a bowel movement every day. Also nausea vomiting today. [place] bloated in the abdomen. [address] scan of the abdomen showed dilated transverse colon with a focal transition point. Involving the left descending colon. With some short segment of circumferential wall thickening. Patient is NPO. He was admitted to the hospital and initially underwent colonoscopy. Distal transverse colon circumferential ulcerated mass with significant luminal narrowing. Scope could not be passed through. Multiple biopsies were done. Dr. Staley discussed this with the patient and the family. General surgery was then consulted. Patient went for exploratory laporotomy with left hemicolectomy. There was a partially obstructing colon mass and biopsy shows adenocarcinoma there was 1 lymph involvement so stage III disease. Oncology was consulted and patient will require further workup on an outpatient basis. Chest CT reveals no metastatic disease in the lungs. He did have postoperative ileus that is resolved. Not having any abdominal pain. No nausea or vomiting and he is tolerating regular diet. Had some scattered wheezing which is resolved at this time. His white blood cell count was 9.26, hemoglobin 9.3, sodium level 174.3, BUN of 22.2 creatinine of 1.1. He is afebrile and 95% on today's of oxygen via acute nasal cannula. His blood pressu re medication will be changed over to oral dosing. He is cleared for discharge and will be going to subacute rehabilitation. Please see medication reconciliation for a list of current medications. Thank you for allowing us to participate in the care of this patient. The impression and plan of care has been dictated by Milvia Giang, Nurse Practitioner as directed. Dr. Agus MD I have performed a history and physical examination and medical decision making of this patient, discussed the same with the dictator, and agree with the dictators assessment and plan as written, documented as a scribe. Based on total visit time, I have performed more than 50% of this visit. Patient Condition at Discharge: Fair Plan - Discharge Summary Discharge Rx Participant: Yes New Discharge Prescriptions: New Ipratropium-Albuterol Nebulize [Duoneb 0.5 mg-3 mg/3 ml Soln] 3 ml INHALATION RT-QID PRN each PRN Reason: Shortness Of Breath Or Wheezing Sennosides [Senokot] 8.6 mg PO BID tab Cyanocobalamin [Vitamin B-12 Injection] 1,000 mcg SQ QMONTHLY each Continue Divalproex ER [Depakote ER] 250 mg PO HS@1999 Aspirin 325 mg PO HS@1999 amLODIPine [Norvasc] 2.5 mg PO DAILY@0800 hydroCHLOROthiazide [Hydrodiuril] 25 mg PO DAILY@0800 Tamsulosin [Flomax] 0.4 mg PO DAILY@0800 busPIRone HCL 15 mg PO BID@ traZODone HCL [Desyrel] 50 mg PO HS@1999 Losartan Potassium 100 mg PO HS@1999 Atorvastatin [Lipitor] 10 mg PO HS@1999 Discharge Medication List Aspirin 325 mg PO HS@199901/19/24 [History] Divalproex ER [Depakote ER] 250 mg PO HS@199901/19/24 [History] amLODIPine [Norvasc] 2.5 mg PO DAILY@0800 01/19/24 [History] busPIRone HCL 15 mg PO BID@799,199901/19/24 [History] Losartan Potassium 100 mg PO HS@199904/13/24 [History] traZODone HCL [Desyrel] 50 mg PO HS@199904/13/24 [History] Atorvastatin [Lipitor] 10 mg PO HS@199902/21/25 [History] Tamsulosin [Flomax] 0.4 mg PO DAILY@79902/21/25 [History] hydroCHLOROthiazide [Hydrodiuril] 25 mg PO DAILY@79902/21/25 [History] Cyanocobalamin [Vitamin B-12 Injection] 1,000 mcg SQ QMONTHLY each 03/06/25 [Rx] Ipratropium-Albuterol Nebulize [Duoneb 0.5 mg-3 mg/3 ml Soln] 3 ml INHALATION RT-QID PRN each 03/06/25 [Rx] Sennosides [Senokot] 8.6 mg PO BID tab 03/06/25 [Rx] Follow up Appointment(s)/Referral(s): Vipul Kirkland NPC [Nurse Practitioner] - 1 Week Home Health,[facility] [NON-STAFF] - As Needed ([facility] will call you to schedule your in home nursing and physical therapy visits. ) Danny Marcos MD [Primary Care Provider] - 1-2 days Akash Patel DO [Doctor of Osteopathic Medicine] - 1 Week Ambulatory/Diagnostic Orders: Basic Metabolic Panel [LAB.AMB] Location: None Selected Complete Blood Count w/diff [LAB.AMB] Time Frame: 3 Days, Location: None Selected Magnesium [LAB.AMB] Location: None Selected Activity/Diet/Wound Care/Special Instructions: No lifting over 10 pounds Shower daily. No soaking or tub baths for 2 weeks Remove optifoam silver dressing in 2 days on 01/08/25. Then clean incision daily with soap and water. Cover with ABD dressing. Discharge Disposition: TRANSFER TO SNF/ECF
[2025-03-06 16:49] LABS: Glucose,Whole Blood 233 mg/dL (70-110)
[2025-03-06 20:11] LABS: Glucose,Whole Blood 131 mg/dL (70-110)
[2025-03-06 20:43] VITALS: RESP 20
[2025-03-06] MEDS: LOSARTAN 50 MG TAB PO SCH (20:56)
[2025-03-06 22:58] LABS: Glucose,Whole Blood 121 mg/dL (70-110)
[2025-03-07 05:05] LABS: Glucose,Whole Blood 126 mg/dL (70-110)
[2025-03-07 07:12] VITALS: BP 146/66; PULSE 64; TEMP 97.7
[2025-03-07 08:27] LABS: Albumin 2.67 g/dL (3.80-4.90); Gamma Globulin 0.89 g/dL (0.70-1.50)
[2025-03-07] MEDS: amLODIPine 2.5 MG TAB PO SCH (08:53)
[2025-03-07 10:55] LABS: Glucose,Whole Blood 161 mg/dL (70-110)
--- NOTE | 2025-03-07 11:08 | P.PN ---
Subjective Progress Note Date: 03/07/25 SURGICAL PROGRESS NOTE CHIEF COMPLAINT: Colon mass HISTORY OF PRESENT ILLNESS: Patient is postop day #12 status post exploratory laparotomy with a left hemicolectomy. Patient is having bowel movements. Tolerating regular diet. No nausea or vomiting reported. Afebrile. Patient being discharged to [facility] today. PHYSICAL EXAM: VITAL SIGNS: Reviewed. GENERAL: Well-developed in no acute distress. ABDOMEN: Soft. Nontender. Abdominal midline dressing clean dry and intact NEUROLOGIC: awake and alert ASSESSMENT: 1. Partially obstructing left colon mass 2. Postoperative ileus can be an expected finding 3. Leukocytosis resolved 4. Pathology results invasive moderately differentiated adenocarcinoma PLAN: -Patient can be discharged from surgical standpoint -Continue regular diet -Continue stool softener -Recommend outpatient follow-up with oncology service -No further antibiotics needed at discharge from surgical standpoint -DVT prophylaxis subcu heparin -GI prophylaxis Proton[employer] Physician [employer] note has been reviewed by physician. Signing provider agrees with the documented findings, assessment, and plan of care. Attestation Patient seen and examined at bedside. Eating breakfast. No nausea or vomiting. Continue stool softener as patient continues to have bowel function. Will remove skin andrea from abdominal incision as an outpatient. Recommend outpatient follow-up with oncology service secondary to T3 N1 disease. Akash Patel, Objective - Vital Signs Vital signs: Vital Signs Temp 97.7 F 03/07/25 06:41 Pulse 64 03/07/25 07:45 Resp 20 03/07/25 07:45 BP 146/66 03/07/25 06:41 Pulse Ox 97 03/07/25 06:41 FiO2 Intake & Output 03/06/25 03/07/25 03/07/25 18:59 06:59 18:59 Intake Total 580 220 Balance 580 220 Intake: Intake, IV Titration 100 Amount Piperacillin-Tazobactam 3 100 .375 gm In Sodium Chloride 0.9% 100 ml @ 25 mls/hr IVPB Q8H [facility] Rx#: [id number] Oral 480 220 Other: Voiding Method Diaper Diaper Diaper Incontinent Incontinent Incontinent # Voids 2 4 - Labs CBC & Chem 7: 03/05/25 03:11 03/06/25 03:28 Labs: Abnormal Lab Results - Last 24 Hours (Table) 03/03/25 03/06/25 03/06/25 Range/Units 04:06 12:05 16:47 POC Glucose (mg/dL) 172 H 233 H (70-110) mg/dL Albumin (PEP) 2.67 L (3.80-4.90) g/dL 03/06/25 03/06/25 03/07/25 Range/Units 20:09 22:56 05:03 POC Glucose (mg/dL) 131 H 121 H 126 H (70-110) mg/dL Albumin (PEP) (3.80-4.90) g/dL 03/07/25 Range/Units 10:49 POC Glucose (mg/dL) 161 H (70-110) mg/dL Albumin (PEP) (3.80-4.90) g/dL
== END 2025-03-07 13:55 | DRG 330 ==
LOC: EC 21:42 → 4SSUR 02-21 00:22
PROVIDERS: ADMIT Hospitalist; ATTEND Hospitalist
PROC: 0DBL8ZX Excision of Transverse Colon, Via Natural or Artificial Opening Endoscopic, Diagnostic (ICD-10-PCS; 2025-02-22 07:30)
PROC: 0DTG0ZZ Resection of Left Large Intestine, Open Approach (ICD-10-PCS; principal; 2025-02-23 08:45)
PROC: 0D9670Z Drainage of Stomach with Drainage Device, Via Natural or Artificial Opening (ICD-10-PCS; 2025-02-26)
PROC: 3E0436Z Introduction of Nutritional Substance into Central Vein, Percutaneous Approach (ICD-10-PCS; 2025-02-26)
PROC: 05HC33Z Insertion of Infusion Device into Left Basilic Vein, Percutaneous Approach (ICD-10-PCS; 2025-03-01)
DX: C18.4 Malignant neoplasm of transverse colon (principal); C77.2 Secondary and unspecified malignant neoplasm of intra-abdominal lymph nodes; K56.7 Ileus, unspecified; F02.B3 Dementia in other diseases classified elsewhere, moderate, with mood disturbance; J44.9 Chronic obstructive pulmonary disease, unspecified; I71.40 Abdominal aortic aneurysm, without rupture, unspecified; D64.9 Anemia, unspecified; F32.A Depression, unspecified; I10 Essential (primary) hypertension; K76.9 Liver disease, unspecified; G30.1 Alzheimer's disease with late onset; K57.30 Diverticulosis of large intestine without perforation or abscess without bleeding; E78.5 Hyperlipidemia, unspecified; D72.829 Elevated white blood cell count, unspecified; N20.0 Calculus of kidney; R26.9 Unspecified abnormalities of gait and mobility; Z79.82 Long term (current) use of aspirin; Z79.899 Other long term (current) drug therapy; Z87.891 Personal history of nicotine dependence; Z95.5 Presence of coronary angioplasty implant and graft; Z71.3 Dietary counseling and surveillance
CPT/HCPCS: 36415; 36573; 44404; 45380; 71045; 71046; 71260; 74018; 74019; 74176; 80048; 80053; 81001; 82150; 82330; 82607; 82728; 82746; 83540; 83550; 83605; 83690; 83735; 83883; 84100; 84165; 84478; 85025; 85027; 85610; 86850; 86900; 86901; 88305; 88309; 88341; 88342; 93005; 94640; 94760; 96374; 99285